=== PATIENT | female | born 1970 | race Caucasian/White ===

== ENCOUNTER 2016-04-08 17:04 | Emergency (ER) | payer OTHER ==
[~2016-04-08] VITALS: Ht 162.6 cm; Wt 88.0 kg
[~2016-04-08 17:04] MED LIST: ADVA115A INH; ALBUAER3 INH; ATOR20TA15 PO; CYCL1TAB29 PO; GABA800T PO; IBUP400T20 PO; IPRASOL INH; LEVO25TA4 PO; OMEP20TA PO; ZOLO50TA PO
[2016-04-08 17:23] VITALS: BP 126/84; PULSE 98; RESP 17; TEMP 99.5; O2SAT 98
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
[2016-04-08] MEDS ORDERED: NAPROXEN 500 MG TAB PO ONE (19:00)
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
[2016-04-08] MEDS ORDERED: NAPR500 PO (19:02)
== END 2016-04-08 19:17 | disposition home or self-care (01) ==
LOC: PHED 17:04 → PHEFT 19:17
DX: M79.672 Pain in left foot (principal); V09.09XA Pedestrian injured in nontraffic accident involving other motor vehicles, initial encounter; Y93.01 Activity, walking, marching and hiking; Y99.9 Unspecified external cause status
CPT/HCPCS: 73630; 99283; E0113

== ENCOUNTER 2016-10-02 22:50 | Inpatient (IN) | payer OTHER ==
[~2016-10-02] VITALS: Ht 165.1 cm; Wt 91.0 kg
[2016-10-02 22:50] VITALS: O2SAT 99
[~2016-10-02 22:50] MED LIST changes: -IBUP400T20 PO; +NAPR500 PO
[2016-10-02 22:55] VITALS: BP 142/81; PULSE 109; RESP 26; TEMP 98.5; O2SAT 100
[2016-10-02 22:59] VITALS: RESP 24; O2SAT 100
[2016-10-02 23:00] VITALS: RESP 24
[2016-10-02] MEDS ORDERED: SODIUM CHLORID 0.9% 500 ML INJ 500 ML IV ONE (23:00)
[2016-10-02] MEDS ORDERED: SODIUM CHLORIDE 0.9% FLUSH 10 ML FLUSH IVF PRN (23:00)
[2016-10-02] MEDS ORDERED: ONDANSETRON HCL 4 MG/2 ML VIAL IV PUSH ONE (23:00)
--- NOTE | 2016-10-02 23:14 | PD ---
HPI Chief Complaint: Respiratory Distress Time Seen by Provider: 22:53 Travel History International Travel<30 days: No Contact w/Intl Traveler<30days: No Traveled to known affect area: No History of Present Illness HPI The patient is a 45-year-old female who presents emergency department shortness of breath. The patient has a one-day history of increasing shortness of breath that started earlier today. The patient has been using nebulizers at home without any alleviation of her symptoms. The patient does have a history of asthma with previous intubations 4. The patient's primary physician is Dr. Nielson. Upon arrival the patient was short of breath, is only able to speak in one to 2 word sentences. She does note shortness of breath with wheezing, denies any chest pain, fever, or chills. The patient does note one episode of nausea with vomiting, denies any abdominal pain. The patient denies any known history congestive heart failure, pulmonary embolism, or DVT. Symptoms are moderate to severe, no alleviation with nebulizers prior to arrival, and very similar to her previous asthma exacerbations. The patient's primary physician is Dr. Oseas Nielson. 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) Diminished Hearing: No Endocrine: Yes Gastrointestinal Disorders: Yes GERD: Yes (Acid reflux) Genitourinary: No Hiatal Hernia: No Hypertension: No Immune Disorder: No Implanted Vascular Access Dvce: No Musculoskeletal: No Neurologic: No Psychiatric: No Reproductive: No Respiratory: Yes (ASTHMA) Immunizations Current: Yes Myocardial Infarction: No Radiation Therapy: No Renal Failure: No Seizures: No Sleep Apnea: No Thyroid Disease: Yes Ulcer: No Tetanus Vaccination: > 5 Years Influenza Vaccination: No PNEUMOCCOCAL Vaccine (Year): 3 ?: Unknown Menopausal: No : 3 Para: 3 Miscarriage: 0 : 0 Past Surgical History AICD: No Arteriovenous Shunt: No Insulin Pump: No Joint Replacement: No Neurologic Surgery: No Pacemaker: No Other Surgery: No Social History Alcohol Use: Yes (OCC, ) Tobacco Use: No (FORMER) Substance Use: No Allergies-Medications (Allergen,Severity, Reaction): Coded Allergies: *MDRO Multi-Drug Resistant Organism (Verified Adverse Reaction, Unknown, ) MRSA (sputum) - 02/2006, 10/2010, 11/2010 MRSA PCR screen negative - 05/20/15 & 07/31/15. Cleared per Infection Control Reported Meds & Prescriptions Reported Meds & Active Scripts Active Reported Duoneb (Ipratropium-Albuterol Neb) Unknown Strength Neb Unknown Dose INH DAILY PRN Advair Hfa 12 GM Inh (Fluticasone-Salmeterol 12 GM Inh) 115-21 Mcg/Act Aer 1 Puff INH DAILY@0600 Proair Hfa 8.5 GM Inh (Albuterol Sulfate) 90 Mcg/Act Aer 1 Puff INH Q6HR PRN 108 mcg/actuation Omeprazole 20 Mg Tab 20 Mg PO DAILY Levothyroxine (Levothyroxine Sodium) 25 Mcg Tab 25 Mcg PO DAILY Atorvastatin (Atorvastatin Calcium) 20 Mg Tab 20 Mg PO HS Gabapentin 800 Mg Tab 800 Mg PO TID Zoloft (Sertraline HCl) Unknown Strength Tab 50 PO DAILY Flexeril (Cyclobenzaprine HCl) 10 Mg Tab 10 Mg PO HS Review of Systems Except as stated in HPI: all other systems reviewed are Neg General / Constitutional: No: Fever HENT: No: Sore Throat Cardiovascular: Positive: Diaphoresis, No: Chest Pain or Discomfort Respiratory: Positive: Cough, Shortness of Breath, Wheezing Gastrointestinal: Positive: Nausea, Vomiting, No: Abdominal Pain Musculoskeletal: No: Edema Neurologic: No: Weakness Physical Exam Narrative GENERAL: Awake, alert, 45-year-old female appears her stated age and is in moderate respiratory distress. SKIN: Slightly clammy and diaphoretic. HEAD: Atraumatic. Normocephalic. EYES: Pupils equal and round. No scleral icterus. No injection or drainage. ENT: No nasal bleeding or discharge. Mucous membranes pink and moist. NECK: Trachea midline. No JVD. CARDIOVASCULAR: Regular, tachycardic with a heart rate over 5. RESPIRATORY: Tachypnea with a respiratory rate of 22, supraclavicular retractions noted, diminished breath sounds throughout with tight late expiratory wheezing. Abdomen: Soft, no rebound tenderness, guarding, rigidity. MUSCULOSKELETAL: No obvious deformities. No clubbing. No cyanosis. No edema. Calves are soft bilaterally. NEUROLOGICAL: Awake and alert. No obvious cranial nerve deficits. Motor grossly within normal limits. Normal speech. PSYCHIATRIC: Appropriate mood and affect; insight and judgment normal. Data Data Last Documented VS Vital Signs Date Time Temp Pulse Resp B/P Pulse Ox O2 Delivery O2 Flow Rate FiO2 10/02/16 23:00 100 BiPAP 10/02/16 23:00 24 10/02/16 22:55 98.5 109 142/81 Orders Complete Blood Count With Diff (10/02/16 22:53) Comprehensive Metabolic Panel (10/02/16 22:53) B-Type Natriuretic Peptide (10/02/16 22:53) Magnesium (Mg) (10/02/16 22:53) Ckmb (Isoenzyme) Profile (10/02/16 22:53) Troponin I (10/02/16 22:53) Iv Access Insert/Monitor (10/02/16 22:53) Electrocardiogram (10/02/16 22:53) Ecg Monitoring (10/02/16 22:53) Oximetry (10/02/16 22:53) Oxygen Administration (10/02/16 22:53) Chest, Single Ap (10/02/16 22:53) Sodium Chloride 0.9% Flush (Ns Flush) (10/02/16 23:00) Albuterol-Ipratropium Neb (Duoneb Neb) (10/02/16 23:00) Resp Bipap / Cpap Non Invas Vt (10/02/16 22:53) Resp Blood Gas Venous (10/02/16 ) Ondansetron Inj (Zofran Inj) (10/02/16 23:00) Sodium Chlorid 0.9% 500 Ml Inj (Ns 500 M (10/02/16 23:00) CKMB (10/02/16 23:00) CKMB% (10/02/16 23:00) Admit Order (Ed Use Only) (10/02/16 23:42) Atorvastatin (Lipitor) (10/03/16 21:00) Cyclobenzaprine (Flexeril) (10/03/16 21:00) Gabapentin (Neurontin) (10/03/16 09:00) Levothyroxine (Synthroid) (10/03/16 06:00) (Nf) Fluticasone-Salmeterol 12 Gm Inh (A (7/15/17 06:00) Pantoprazole (Protonix) (10/03/16 09:00) Albuterol Hfa Inh (Ventolin Hfa Inh) (10/03/16 00:15) Labs Laboratory Tests Test 10/02/16 10/02/16 22:55 23:00 Blood Gas Puncture Site Blood Gas Patient Temperature 98.6 Venous Blood pH 7.41 Venous Blood Partial Pressure 36 mmHg CO2 Venous Blood Partial Pressure 46 mmHg O2 Venous Blood HCO3 22 mmol/L Venous Blood Oxygen Saturation 78 % Venous Blood Oxygen Content 14.2 Vol % Venous Blood Base Excess -2.0 mmol/L Oxygen Delivery Device BIPAP Blood Gas Ventilator Setting IPAP=12 EPAP=5 Blood Gas Inspired Oxygen 50 % White Blood Count 12.8 TH/MM3 Red Blood Count 4.55 MIL/MM3 Hemoglobin 12.7 GM/DL Hematocrit 38.9 % Mean Corpuscular Volume 85.7 FL Mean Corpuscular Hemoglobin 27.9 PG Mean Corpuscular Hemoglobin 32.6 % Concent Red Cell Distribution Width 14.7 % Platelet Count 346 TH/MM3 Mean Platelet Volume 7.7 FL Neutrophils (%) (Auto) 57.1 % Lymphocytes (%) (Auto) 30.6 % Monocytes (%) (Auto) 6.8 % Eosinophils (%) (Auto) 4.8 % Basophils (%) (Auto) 0.7 % Neutrophils # (Auto) 7.3 TH/MM3 Lymphocytes # (Auto) 3.9 TH/MM3 Monocytes # (Auto) 0.9 TH/MM3 Eosinophils # (Auto) 0.6 TH/MM3 Basophils # (Auto) 0.1 TH/MM3 CBC Comment DIFF FINAL Differential Comment Sodium Level 139 MEQ/L Potassium Level 3.5 MEQ/L Chloride Level 105 MEQ/L Carbon Dioxide Level 22.3 MEQ/L Anion Gap 12 MEQ/L Blood Urea Nitrogen 8 MG/DL Creatinine 0.93 MG/DL Estimat Glomerular Filtration 65 ML/MIN Rate Random Glucose 107 MG/DL Calcium Level 9.3 MG/DL Magnesium Level 2.1 MG/DL Total Bilirubin 0.1 MG/DL Aspartate Amino Transf 17 U/L (AST/SGOT) Alanine Aminotransferase 25 U/L (ALT/SGPT) Alkaline Phosphatase 97 U/L Total Creatine Kinase 109 U/L Creatine Kinase MB 0.7 NG/ML Troponin I LESS THAN 0.02 NG/ML B-Type Natriuretic Peptide 14 PG/ML Total Protein 8.2 GM/DL Albumin 3.6 GM/DL MDM Medical Decision Making Medical Screen Exam Complete: Yes Emergency Medical Condition: Yes Medical Record Reviewed: Yes Interpretation(s) EKG reveals normal sinus rhythm with a rate in 97. Nonspecific T-wave changes. Last Impressions Chest X-Ray 10/02/16 [id number] Signed Impressions: Service Date/Time: Sunday, October 02, 2016 23:12 - CONCLUSION: No acute disease. Kwasi Underwood MD Laboratory Tests Test 10/02/16 23:00 White Blood Count 12.8 TH/MM3 Red Blood Count 4.55 MIL/MM3 Hemoglobin 12.7 GM/DL Hematocrit 38.9 % Mean Corpuscular Volume 85.7 FL Mean Corpuscular Hemoglobin 27.9 PG Mean Corpuscular Hemoglobin 32.6 % Concent Red Cell Distribution Width 14.7 % Platelet Count 346 TH/MM3 Mean Platelet Volume 7.7 FL Neutrophils (%) (Auto) 57.1 % Lymphocytes (%) (Auto) 30.6 % Monocytes (%) (Auto) 6.8 % Eosinophils (%) (Auto) 4.8 % Basophils (%) (Auto) 0.7 % Neutrophils # (Auto) 7.3 TH/MM3 Lymphocytes # (Auto) 3.9 TH/MM3 Monocytes # (Auto) 0.9 TH/MM3 Eosinophils # (Auto) 0.6 TH/MM3 Basophils # (Auto) 0.1 TH/MM3 CBC Comment DIFF FINAL Differential Comment Sodium Level 139 MEQ/L Potassium Level 3.5 MEQ/L Chloride Level 105 MEQ/L Carbon Dioxide Level 22.3 MEQ/L Anion Gap 12 MEQ/L Blood Urea Nitrogen 8 MG/DL Creatinine 0.93 MG/DL Estimat Glomerular Filtration 65 ML/MIN Rate Random Glucose 107 MG/DL Calcium Level 9.3 MG/DL Magnesium Level 2.1 MG/DL Aspartate Amino Transf 17 U/L (AST/SGOT) Alanine Aminotransferase 25 U/L (ALT/SGPT) Albumin 3.6 GM/DL Differential Diagnosis Differential diagnosis includes asthma exacerbation, COPD exacerbation, bronchitis, pneumonia, pneumothorax, pulmonary edema, congestive heart failure, acute urinary syndrome, pulmonary embolism, pneumonitis. Narrative Course IV was established, labs are drawn and sent, and the patient was placed on cardiac telemetry monitoring and continuous pulse oximetry monitoring. The patient was placed on BiPAP at 12/5 and 50% by respiratory. VBG was obtained. The patient was administered duo nebs 3. EKG was ordered and interpreted. Chest x-ray was obtained. Chest x-ray was unremarkable. White count is mildly elevated at 12.8, troponin is negative, chest x-ray reveals no evidence of pneumonia. The patient's symptoms significantly improved on BiPAP, patient is high risk if she is been recently intubated 4 times. The patient is followed by her primary physician, Dr. 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 Brown. The patient will need admission on [facility]PAP. [facility]. The patient was reassessed at 12:05 AM. The patient's retractions had resolved , her respiratory rate was 16, she had significantly improved airway movement with diminished wheezing. After discussion with the patient was agreed we would perform a trial off of BiPAP to see how she responds. Critical Care Narrative Aggregate critical care time was 35 minutes. Time to perform other separately billable procedures was not included in the critical care time. My time did not include minutes spent treating any other patients simultaneously or on activities that did not directly contribute to the patient's treatment. The services I provided to this patient were to treat and/or prevent clinically significant deterioration that could result in: Anoxia, hypoxia, aspiration, arrhythmia, . I provided critical care services requiring my management, as noted below: Chart data review, documentation time, medication orders and management, vital sign assessments/reviewing monitor data, ordering and reviewing lab tests, ordering and interpreting/reviewing x-rays and diagnostic studies, care of the patient and discussion of the patient with the admitting physicians. Physician Communication Physician Communication [facility] I discussed the patient with Dr. Lott who agrees with admission. Diagnosis Primary Impression: Status asthmaticus Qualified Code: J45.902 - Asthma with status asthmaticus, unspecified asthma severity Admitting Information Admitting Physician Requests: Admit Condition: Stable Albert Shah MD Oct 02, 2016 23:14
[2016-10-02 23:16] LABS: AUTOMATED NEUTROPHIL # 7.3 TH/MM3 (1.8-7.7); BASOPHIL # 0.1 TH/MM3 (0-0.2); BASOPHIL % 0.7 % (0.0-2.0); EOSINOPHIL # 0.6 TH/MM3 (0-0.4); EOSINOPHIL % 4.8 % (0.0-4.0); HEMATOCRIT 38.9 % (35.0-46.0); HEMO FLAGS DIFF FINAL; LYMPH % 30.6 % (9.0-44.0); LYMPHOCYTE # 3.9 TH/MM3 (1.0-4.8); MEAN CELL VOLUME 85.7 FL (80.0-100.0); MEAN CORPUSCULAR HEMOGLOBIN 27.9 PG (27.0-34.0); MEAN CORPUSCULAR HGB CONC 32.6 % (32.0-36.0); MONO % 6.8 % (0.0-8.0); NEUT % 57.1 % (16.0-70.0); PLATELET COUNT 346 TH/MM3 (150-450); RED BLOOD COUNT 4.55 MIL/MM3 (4.00-5.30); RED CELL DISTRIBUTION WIDTH 14.7 % (11.6-17.2); WHITE BLOOD COUNT 12.8 TH/MM3 (4.0-11.0)
--- NOTE | 2016-10-02 23:22 | RADRPT ---
EXAM DATE/TIME: 10/02/2016 23:12 [facility] COMPARISON: CHEST SINGLE AP, November 30, 2015, 18:32. INDICATIONS : Short of breath. MEDICAL HISTORY : None. SURGICAL HISTORY : None. ENCOUNTER: Initial ACUITY: 1 day PAIN SCORE: 7/10 LOCATION: Bilateral chest FINDINGS: A single view of the chest demonstrates the lungs to be symmetrically aerated without evidence of mas s, infiltrate or effusion. The cardiomediastinal contours are unremarkable. Osseous structures are intact. CONCLUSION: No acute disease. Kwasi Underwood MD on October 02, 2016 at 23:20 Board Certified Radiologist. This report was verified electronically.
[2016-10-02 23:32] LABS: ALT (GPT) 25 U/L (10-53); ANION GAP 12 MEQ/L (5-15); AST (GOT) 17 U/L (15-37); BICARBONATE 22.3 MEQ/L (21.0-32.0); BLOOD UREA NITROGEN 8 MG/DL (7-18); CHLORIDE 105 MEQ/L (98-107); GLOMERULAR FILTRATION RATE 65 ML/MIN (>89); MAGNESIUM 2.1 MG/DL (1.5-2.5); POTASSIUM 3.5 MEQ/L (3.5-5.1); SODIUM (NA) 139 MEQ/L (136-145)
[2016-10-02 23:36] LABS: ALKALINE PHOSPHATASE 97 U/L (45-117); CREATINE KINASE 109 U/L (26-192); TOTAL BILIRUBIN ADULT 0.1 MG/DL (0.2-1.0)
[2016-10-02] MEDS: RESP: ALBUTEROL 2.5 MG/IPRATROPIUM 0.5 MG NEB (SCH) INH (23:41)
[2016-10-02] MEDS ORDERED: NALOXONE HCL 0.4 MG/ML AMP IV PRN (23:45)
[2016-10-02] MEDS ORDERED: LACTULOSE SYRUP 20 GM/30 ML CUP PO PRN (23:45)
[2016-10-02] MEDS ORDERED: MAGNESIUM HYDROXIDE SUSP 30 ML CUP PO PRN (23:45)
[2016-10-02] MEDS ORDERED: BISACODYL 10 MG SUPP RECTAL PRN (23:45)
[2016-10-02] MEDS ORDERED: TEMAZEPAM 15 MG CAP PO PRN (23:45)
[2016-10-02] MEDS ORDERED: SENNOSIDES 8.6 MG TAB PO PRN (23:45)
[2016-10-02] MEDS ORDERED: SODIUM CHLORIDE 0.9% FLUSH 10 ML FLUSH IV FLUSH PRN (23:45)
[2016-10-02] MEDS ORDERED: ONDANSETRON HCL 4 MG/2 ML VIAL IVP PRN (23:45)
[2016-10-02 23:49] LABS: CKMB 0.7 NG/ML (0.5-3.6)
[2016-10-03] VITALS (24 sets, daily range): BP systolic 106–138; BP diastolic 62–76; PULSE 70–108; RESP 14–18; TEMP 97.6–98.4; O2SAT 92–99
[2016-10-03] MEDS ORDERED: RESP: ALBUTEROL 2.5 MG/IPRATROPIUM 0.5 MG NEB (PRN) NEB
[2016-10-03] MEDS ORDERED: ALBUTEROL SULFATE 90 MCG/ACT HFA 18 GM INHALER INH PRN (00:15)
[2016-10-03 00:26] LABS: BLOOD GAS VENOUS HCO3 22 mmol/L (22-26); BLOOD GAS VENOUS O2 CONTENT 14.2 Vol % (9.0-17.0); BLOOD GAS VENOUS O2 HGB SAT 78 % (70-76); BLOOD GAS VENOUS PCO2 36 mmHg (44-48); BLOOD GAS VENOUS PO2 46 mmHg (35-40); BLOOD GAS VENOUS pH 7.41 (7.360-7.400); CRITICAL VALUE NO; FIO2 50 %; OXYGEN DEVICE BIPAP; STAT YES; TEMP CORR TO 98.6; VENT SETTINGS IPAP=12 EPAP=5
[2016-10-03] MEDS: HEPARIN SODIUM - SQ 10,000 UNITS/ML VIAL SQ SCH ×2 (01:35→11:24)
[2016-10-03] MEDS: AZITHROMYCIN INJ 500 MG in SODIUM CHLOR 0.9% 250 ML INJ 250 ML IV SCH (01:35)
[2016-10-03] MEDS: methylPREDNISolone SOD SUCC 40 MG/1 ML VIAL IV PUSH SCH ×5 (01:36→22:48)
[2016-10-03 05:30] LABS: AUTOMATED NEUTROPHIL # 8.6 TH/MM3 (1.8-7.7); BASOPHIL % 0.1 % (0.0-2.0); EOSINOPHIL % 0.1 % (0.0-4.0); HEMATOCRIT 36.9 % (35.0-46.0); HEMO FLAGS DIFF FINAL; LYMPH % 5.9 % (9.0-44.0); LYMPHOCYTE # 0.5 TH/MM3 (1.0-4.8); MEAN CELL VOLUME 86.3 FL (80.0-100.0); MEAN CORPUSCULAR HEMOGLOBIN 28.2 PG (27.0-34.0); MEAN CORPUSCULAR HGB CONC 32.7 % (32.0-36.0); MONO % 0.5 % (0.0-8.0); NEUT % 93.4 % (16.0-70.0); PLATELET COUNT 299 TH/MM3 (150-450); RED BLOOD COUNT 4.27 MIL/MM3 (4.00-5.30); RED CELL DISTRIBUTION WIDTH 14.9 % (11.6-17.2); WHITE BLOOD COUNT 9.2 TH/MM3 (4.0-11.0)
[2016-10-03 05:53] LABS: BICARBONATE 21.8 MEQ/L (21.0-32.0); POTASSIUM 3.9 MEQ/L (3.5-5.1)
[2016-10-03 05:57] LABS: INDIRECT BILIRUBIN 0.1 MG/DL (0.0-0.8); TOTAL BILIRUBIN ADULT 0.2 MG/DL (0.2-1.0)
[2016-10-03] MEDS ORDERED: SALMETEROL INH SCH (06:00)
[2016-10-03] MEDS ORDERED: FLUTICASONE INH SCH (06:00)
[2016-10-03] MEDS: LEVOTHYROXINE SODIUM 25 MCG TAB PO SCH (06:08)
[2016-10-03] MEDS: GABAPENTIN 400 MG CAP PO SCH ×3 (07:44→17:19)
[2016-10-03] MEDS: DOCUSATE SODIUM 50 MG/SENNA 8.6 MG TAB PO SCH ×2 (07:44→21:00)
[2016-10-03] MEDS: CHLORHEXIDINE GLUCONATE 0.12% 15 ML CUP SWISH-SPIT SCH ×3 (07:45→17:19)
[2016-10-03] MEDS: MUPIROCIN 2% OINT 1 APPLIC/GM SYR EACH NARE SCH ×2 (07:45→22:49)
[2016-10-03] MEDS: PANTOPRAZOLE SOD 20 MG DELAYED RELEASE TAB PO SCH (07:45)
[2016-10-03] MEDS: SODIUM CHLORIDE 0.9% FLUSH 10 ML FLUSH IV FLUSH SCH ×2 (07:46→22:49)
[2016-10-03] MEDS ORDERED: ACETAMINOPHEN 325 MG TAB PO PRN (11:00)
[2016-10-03] MEDS: RESP: ALBUTEROL 2.5 MG/IPRATROPIUM 0.5 MG NEB (PRN) NEB ×2 (11:30→19:26)
--- NOTE | 2016-10-03 13:42 | EKG ---
Date Performed: 10/02/2016 Time Performed: 23:06:24 PTAGE: 45 years EKG: Sinus rhythm POSSIBLE LEFT ATRIAL ENLARGEMENT LOW QRS VOLTAGE IN PRECORDIAL LEADS NONSPECIFIC T-WAVE ABNORMALITY Compared to previous tracing, sinus rate is slower BORDERLINE ECG PREVIOUS TRACING : 11/30/2015 18.06 DOCTOR: Wisam Garrison Interpretating Date/Time 10/03/2016 13:41:55
--- NOTE | 2016-10-03 15:23 | HHI.HP ---
HPI Service [facility] Primary Care Physician Oseas Nielson M.D. Admission Diagnosis status asthmaticus Diagnoses: Travel History International Travel<30 Days: No Contact w/Intl Traveler <30 Da: No Traveled to Known Affected Are: No History of Present Illness The patient is a 45-year-old female patient of Dr. Jarvis Nielson. She presented to the emergency department at [facility] with just before midnight last night with shortness of breath. On the shortness of breath, wheezing, chest tightness, cough without fever. She was seen by the undersigned in room 236 earlier this morning. She is alert and oriented. She is already feeling better after treatment that was started at the emergency department. She has a severe asthma attack and initially was on BiPAP. Progressed to nasal cannula this morning. The patient does have a history of asthma with previous intubations 4. Upon arrival the patient was short of breath, is only able to speak in one to 2 word sentences. She denies any chest pain, fever, or chills. The patient had one episode of nausea with vomiting, denies any abdominal pain. Review of Systems Other As detailed above, 10 systems reviewed and otherwise negative Past Family Social History Past Medical History Asthma COPD peripheral neuropathy hyperlipidemia Hypothyroid Obesity Reflux disease Depression Anxiety Prior history of smoking Nasal MRSA diagnosed in the year 1999 but subsequently resolved Reported Medications Reported Meds & Active Scripts Active Reported Duoneb (Ipratropium-Albuterol Neb) Unknown Strength Neb Unknown Dose INH DAILY PRN Advair Hfa 12 GM Inh (Fluticasone-Salmeterol 12 GM Inh) 115-21 Mcg/Act Aer 1 Puff INH DAILY@0600 Proair Hfa 8.5 GM Inh (Albuterol Sulfate) 90 Mcg/Act Aer 1 Puff INH Q6HR PRN 108 mcg/actuation Omeprazole 20 Mg Tab 20 Mg PO DAILY Levothyroxine (Levothyroxine Sodium) 25 Mcg Tab 25 Mcg PO DAILY Atorvastatin (Atorvastatin Calcium) 20 Mg Tab 20 Mg PO HS Gabapentin 800 Mg Tab 800 Mg PO TID Zoloft (Sertraline HCl) Unknown Strength Tab 50 PO DAILY Flexeril (Cyclobenzaprine HCl) 10 Mg Tab 10 Mg PO HS Allergies: Coded Allergies: *MDRO Multi-Drug Resistant Organism (Verified Adverse Reaction, Unknown, ) MRSA (sputum) - 02/2006, 10/2010, 11/2010 MRSA PCR screen negative - 05/20/15 & 07/31/15. Cleared per Infection Control Family History Reviewed but noncontributory Social History Prior history of smoking, hasn't smoked for years, no excessive alcohol, no illicit drug use Physical Exam Vital Signs Vital Signs Date Time Temp Pulse Resp B/P Pulse Ox O2 Delivery O2 Flow Rate FiO2 10/03/16 14:00 99 10/03/16 13:03 96 10/03/16 12:00 108 10/03/16 11:03 107 10/03/16 11:00 98.0 107 18 138/72 96 10/03/16 10:00 96 10/03/16 09:00 100 10/03/16 08:00 103 10/03/16 07:11 70 10/03/16 07:00 97.6 102 18 137/75 97 10/03/16 05:59 98.3 101 14 106/76 95 10/03/16 01:14 98.4 99 18 115/64 98 10/03/16 01:00 100 10/03/16 00:15 99 Nasal Cannula 2.00 10/02/16 23:00 100 BiPAP 10/02/16 23:00 24 10/02/16 22:59 24 100 BiPAP 10/02/16 22:55 98.5 109 26 142/81 100 10/02/16 22:50 99 50 Physical Exam GENERAL: This is a pleasant, obese , well-developed patient, in no apparent distress. SKIN: No rashes, ecchymoses or lesions. Cool and dry. HEAD: Atraumatic. Normocephalic. No temporal or scalp tenderness. EYES: Pupils equal round and reactive. Extraocular motions intact. No scleral icterus. No injection or drainage. ENT: Nose without bleeding, purulent drainage or septal hematoma. Throat without erythema, tonsillar hypertrophy or exudate. Uvula midline. Airway patent. NECK: Trachea midline. No JVD or lymphadenopathy. Supple, nontender, no meningeal signs. CARDIOVASCULAR: Regular rate and rhythm without murmurs, gallops, or rubs. RESPIRATORY: Bilateral wheezing GASTROINTESTINAL: Abdomen soft, non-tender, nondistended. No hepato-splenomegaly , or palpable masses. No guarding. MUSCULOSKELETAL: Extremities without clubbing, cyanosis, or edema. No joint tenderness, effusion, or edema noted. No calf tenderness. Negative Homans sign bilaterally. NEUROLOGICAL: Awake and alert. Cranial nerves II through XII intact. Normal speech. Laboratory Laboratory Tests Test 10/02/16 10/02/16 10/03/16 22:55 23:00 04:58 Blood Gas Puncture Site Blood Gas Patient Temperature 98.6 Venous Blood pH 7.41 Venous Blood Partial Pressure 36 CO2 Venous Blood Partial Pressure 46 O2 Venous Blood HCO3 22 Venous Blood Oxygen Saturation 78 Venous Blood Oxygen Content 14.2 Venous Blood Base Excess -2.0 Oxygen Delivery Device BIPAP Blood Gas Ventilator Setting IPAP=12 EPAP=5 Blood Gas Inspired Oxygen 50 White Blood Count 12.8 9.2 Red Blood Count 4.55 4.27 Hemoglobin 12.7 12.0 Hematocrit 38.9 36.9 Mean Corpuscular Volume 85.7 86.3 Mean Corpuscular Hemoglobin 27.9 28.2 Mean Corpuscular Hemoglobin 32.6 32.7 Concent Red Cell Distribution Width 14.7 14.9 Platelet Count 346 299 Mean Platelet Volume 7.7 7.8 Neutrophils (%) (Auto) 57.1 93.4 Lymphocytes (%) (Auto) 30.6 5.9 Monocytes (%) (Auto) 6.8 0.5 Eosinophils (%) (Auto) 4.8 0.1 Basophils (%) (Auto) 0.7 0.1 Neutrophils # (Auto) 7.3 8.6 Lymphocytes # (Auto) 3.9 0.5 Monocytes # (Auto) 0.9 0.0 Eosinophils # (Auto) 0.6 0.0 Basophils # (Auto) 0.1 0.0 CBC Comment DIFF FINAL DIFF FINAL Differential Comment Sodium Level 139 138 Potassium Level 3.5 3.9 Chloride Level 105 108 Carbon Dioxide Level 22.3 21.8 Anion Gap 12 8 Blood Urea Nitrogen 8 10 Creatinine 0.93 1.03 Estimat Glomerular Filtration 65 58 Rate Random Glucose 107 158 Calcium Level 9.3 8.8 Magnesium Level 2.1 Total Bilirubin 0.1 0.2 Aspartate Amino Transf 17 13 (AST/SGOT) Alanine Aminotransferase 25 22 (ALT/SGPT) Alkaline Phosphatase 97 92 Total Creatine Kinase 109 Creatine Kinase MB 0.7 Troponin I LESS THAN 0.02 B-Type Natriuretic Peptide 14 Total Protein 8.2 7.5 Albumin 3.6 3.3 Direct Bilirubin 0.1 Indirect Bilirubin 0.1 Result Diagram: 10/03/16 0458 10/03/16 0458 Imaging Last 24 hours Impressions Chest X-Ray 10/02/16 4539 Signed Impressions: Service Date/Time: Sunday, October 02, 2016 23:12 - CONCLUSION: No acute disease. Kwasi Underwood MD Assessment and Plan Assessment and Plan Assessment Admitted with status asthmaticus Respiratory distress secondary to the above Bronchospasm Obesity Management Admitted to telemetry Solu-Medrol 80 mg IV every 6 hours DuoNeb 4 times a day plus as needed for 2 hours Consult pulmonary Medications Needs to lose weight She was given empiric antibiotics however this time there is no evidence of infection No obvious trigger for her attack identifiable at this time Discussed with patient Discussed with nurse Discussed with emergency provider 40 minutes Tejal Lott MD Oct 03, 2016 15:23
[2016-10-03] MEDS: ATORVASTATIN 20 MG TAB PO SCH (22:49)
[2016-10-03] MEDS: CYCLOBENZAPRINE HCL 10 MG TAB PO SCH (22:49)
[2016-10-04] VITALS (25 sets, daily range): BP systolic 115–146; BP diastolic 57–81; PULSE 60–105; RESP 16–18; TEMP 97.7–98.2; O2SAT 93–96
[2016-10-04 01:07] LABS: MAGNESIUM 1.9 MG/DL (1.5-2.5); POTASSIUM 3.9 MEQ/L (3.5-5.1)
[2016-10-04] MEDS: HEPARIN SODIUM - SQ 10,000 UNITS/ML VIAL SQ SCH ×2 (02:13→12:11)
[2016-10-04] MEDS: AZITHROMYCIN INJ 500 MG in SODIUM CHLOR 0.9% 250 ML INJ 250 ML IV SCH (02:14)
[2016-10-04] MEDS: LEVOTHYROXINE SODIUM 25 MCG TAB PO SCH (06:10)
[2016-10-04] MEDS: methylPREDNISolone SOD SUCC 40 MG/1 ML VIAL IV PUSH SCH ×2 (06:10→12:12)
[2016-10-04] MEDS: PANTOPRAZOLE SOD 20 MG DELAYED RELEASE TAB PO SCH (08:54)
[2016-10-04] MEDS: MUPIROCIN 2% OINT 1 APPLIC/GM SYR EACH NARE SCH ×2 (08:55→21:00)
[2016-10-04] MEDS: GABAPENTIN 400 MG CAP PO SCH ×3 (08:55→16:56)
[2016-10-04] MEDS: CHLORHEXIDINE GLUCONATE 0.12% 15 ML CUP SWISH-SPIT SCH ×3 (08:55→16:56)
[2016-10-04] MEDS: SODIUM CHLORIDE 0.9% FLUSH 10 ML FLUSH IV FLUSH SCH ×2 (08:55→21:31)
[2016-10-04] MEDS: DOCUSATE SODIUM 50 MG/SENNA 8.6 MG TAB PO SCH ×2 (08:55→21:30)
--- NOTE | 2016-10-04 12:39 | EKG ---
Date Performed: 10/03/2016 Time Performed: 23:55:06 PTAGE: 45 years EKG: Sinus rhythm Extensive T wave changes are nonspecific Low QRS voltages in precordial leads Compared to prior trac ing no significant change Borderline ECG PREVIOUS TRACING : 10/02/2016 23.06 DOCTOR: Wisam Garrison Interpretating Date/Time 10/04/2016 12:34:24
--- NOTE | 2016-10-04 15:49 | HHI.PR ---
Subjective Remarks alert no sob at rest Objective Vital Signs Date Time Temp Pulse Resp B/P Pulse Ox O2 Delivery O2 Flow Rate FiO2 10/04/16 14:01 66 10/04/16 13:00 86 10/04/16 12:06 85 10/04/16 11:21 97.7 105 18 138/68 95 10/04/16 11:21 98 10/04/16 10:09 71 10/04/16 09:11 82 10/04/16 08:15 97.7 82 18 115/68 95 10/04/16 08:15 95 Room Air 10/04/16 08:15 80 10/04/16 06:20 83 10/04/16 05:42 78 10/04/16 04:20 76 10/04/16 03:24 97.9 81 18 121/57 93 10/04/16 03:24 93 10/04/16 02:15 78 10/04/16 01:00 81 10/04/16 00:00 90 10/03/16 23:30 98.0 76 16 106/66 95 10/03/16 23:00 89 10/03/16 22:00 76 10/03/16 21:00 102 10/03/16 20:36 97.8 96 18 120/67 92 10/03/16 20:36 77 10/03/16 18:06 96 10/03/16 17:01 81 10/03/16 16:32 98.3 98 18 133/62 98 10/03/16 16:03 95 I/O 10/03/16 10/03/16 10/03/16 10/04/16 10/04/16 10/04/16 07:00 15:00 23:00 07:00 15:00 23:00 Intake Total 395 ml 780 ml 727 ml Output Total 900 ml Balance 395 ml 780 ml -173 ml Intake Oral 120 ml 780 ml 480 ml IV Total 275 ml 0 ml 247 ml Output Urine Total 900 ml # Voids 2 # Bowel Movements 0 Result Diagram: 10/03/16 0458 10/03/16 4620 Medications and IVs GENERAL: SKIN: Warm and dry. HEAD: Atraumatic. Normocephalic. EYES: Pupils equal and round. No scleral icterus. No injection or drainage. ENT: No nasal bleeding or discharge. Mucous membranes pink and moist. NECK: Trachea midline. No JVD. CARDIOVASCULAR: Regular rate and rhythm. RESPIRATORY: No accessory muscle use. Clear to auscultation. Breath sounds equal bilaterally. GASTROINTESTINAL: Abdomen soft, non-tender, nondistended. Hepatic and splenic margins not palpable. MUSCULOSKELETAL: Extremities without clubbing, cyanosis, or edema. No obvious deformities. NEUROLOGICAL: Awake and alert. No obvious cranial nerve deficits. Motor grossly within normal limits. Five out of 5 muscle strength in the arms and legs. Normal speech. PSYCHIATRIC: Appropriate mood and affect; insight and judgment normal. Assessment and Plan Assessment and Plan ass asthma ex. improved PLAN BRONCHODILATOR THERAPY CHANGE TO ORAL STEROIDS INCREASE ACTIVITY Jen Li MD Oct 04, 2016 15:49
--- NOTE | 2016-10-04 16:25 | HHI.PR ---
Subjective Interval History Alert, oriented, feels better, no longer on supplemental oxygen, still gets some cough but without sputum, no fever, no chest pain Had 2 short episodes of wide-complex tachycardia, question V. tach Review of Systems Constitutional Constitutional Remarks As detailed above, 10 systems reviewed and otherwise negative Vitals/Results Intake & Output 10/03/16 10/03/16 10/04/16 15:00 23:00 07:00 Intake Total 780 ml 727 ml Output Total 900 ml Balance 780 ml -173 ml Intake Oral 780 ml 480 ml IV Total 0 ml 247 ml Output Urine Total 900 ml Vital Signs Vital Signs Date Time Temp Pulse Resp B/P Pulse Ox O2 Delivery O2 Flow Rate FiO2 10/04/16 16:09 98 10/04/16 15:00 75 10/04/16 15:00 98.2 88 18 146/81 96 10/04/16 14:01 66 10/04/16 13:00 86 10/04/16 12:06 85 10/04/16 11:21 97.7 105 18 138/68 95 10/04/16 11:21 98 10/04/16 10:09 71 10/04/16 09:11 82 10/04/16 08:15 97.7 82 18 115/68 95 10/04/16 08:15 95 Room Air 10/04/16 08:15 80 10/04/16 06:20 83 10/04/16 05:42 78 10/04/16 04:20 76 10/04/16 03:24 97.9 81 18 121/57 93 10/04/16 03:24 93 10/04/16 02:15 78 10/04/16 01:00 81 10/04/16 00:00 90 10/03/16 23:30 98.0 76 16 106/66 95 10/03/16 23:00 89 10/03/16 22:00 76 10/03/16 21:00 102 10/03/16 20:36 97.8 96 18 120/67 92 10/03/16 20:36 77 10/03/16 18:06 96 10/03/16 17:01 81 10/03/16 16:32 98.3 98 18 133/62 98 CBC/BMP: 10/03/16 0458 10/03/16 2330 Lab Results Laboratory Tests Test 10/03/16 23:30 Potassium Level 3.9 MEQ/L Magnesium Level 1.9 MG/DL Troponin I LESS THAN 0.02 NG/ML Thyroid Stimulating Hormone 1.580 uIU/ML 3rd Gen Physical Exam General General Appearance: Comfortable, Obese Eyes Eye Exam: Pupils Reactive Ears & Nose Ears & Nose Exam: Nasal Mucosa [place] Throat Throat Exam: Oral Mucosa [place] & Moist Neck Neck Exam: Trachea Midline Pulmonary Resp Exam: Breath Sounds Equal, Crackles Cardiology CV Exam: Normal Sinus Rhythm, Good Perfusion Gastrointestinal/Abdomen GI Exam: Bowel Sounds Present Musculoskeletal MS Exam: Normal Tone Integumentary Skin Exam: Warm, Dry Extremeties Extremities Exam: No Edema Neurologic Neuro Exam: Alert, Awake, Oriented, Speech Clear, Moving All Extremities Psychiatric Psych Exam: Appropriate Responses VTE Prophylaxis VTE Prophylaxis Meds: Heparin Assessment/Plan Assessment/Plan Assessment Admitted with status asthmaticus/respiratory failure, initially was on BiPAP Respiratory distress secondary to the above Much improved now Had 2 short episodes of wide-complex tachycardia, question V. tach Bronchospasm Obesity Management telemetry Solu-Medrol switched to prednisone Discontinue scheduled DuoNeb, keep only as needed every 4 hours pulmonary following Follow potassium and sodium levels Needs to lose weight Follow echocardiogram findings Discussed with patient Discussed with nurse Discussed Condition with: Patient Tejal Lott MD Oct 04, 2016 16:25
[2016-10-04] MEDS: predniSONE 10 MG TAB PO SCH (16:41)
--- NOTE | 2016-10-04 19:21 | ECHRPT ---
Indication: SHORTNESS OF BREATH CONCLUSIONS Normal left ventricular size. Wall thickness is normal. The left ventricular systolic function is grossly normal on limited imaging. No regional wall motion abnormalities are present. Left ventricular diastolic function parameters are normal. Structurally normal tricuspid valve. There is trace tricuspid and mitral valve regurgitation. Normal estimated pulmonary pressures. BP: / HR: Rhythm: Sinus MEASUREMENTS (Male / Female) Normal Values Technical Quality:Technically difficult study 2D ECHO LV Diastolic Diameter PLAX 3.9 cm 4.2 - 5.9 / 3.9 - 5.3 cm LV Systolic Diameter PLAX 2.4 cm IVS Diastolic Thickness 0.7 cm 0.6 - 1.0 / 0.6 - 0.9 cm LVPW Diastolic Thickness 0.7 cm 0.6 - 1.0 / 0.6 - 0.9 cm LV Relative Wall Thickness 0.4 LVOT Diameter 1.9 cm Aortic Root Diameter 2.5 cm LA Systolic Diameter LX 3.1 cm 3.0 - 4.0 / 2.7 - 3.8 cm M-MODE AV Cusp Separation MM 1.6 cm DOPPLER AV Peak Velocity 128.0 cm/s AV Peak Gradient 6.6 mmHg AV Mean Gradient 4.0 mmHg AV Velocity Time Integral 27.1 cm LVOT Peak Velocity 111.0 cm/s LVOT Peak Gradient 4.9 mmHg LVOT Velocity Time Integral 22.8 cm AV Area Cont Eq vti 2.4 cm AV Area Cont Eq pk 2.5 cm Mitral E Point Velocity 83.9 cm/s Mitral A Point Velocity 90.3 cm/s Mitral E to A Ratio 0.9 LV E' Lateral Velocity 12.4 cm/s Mitral E to LV E' Lateral Ratio 6.8 LV E' Septal Velocity 8.8 cm/s Mitral E to LV E' Septal Ratio 9.6 TR Peak Velocity 224.0 cm/s TR Peak Gradient 20.1 mmHg PV Peak Velocity 63.9 cm/s PV Peak Gradient 1.6 mmHg FINDINGS LEFT VENTRICLE Normal left ventricular size. Wall thickness is normal. The left ventricular systolic function is grossly normal on limited imaging. No regional wall motion abnormalities are present. Left ventricular diastolic function parameters are normal. MITRAL VALVE Structurally normal mitral valve. Trace mitral valve regurgitation. AORTIC VALVE The aortic valve is not well visualized. TRICUSPID VALVE Structurally normal tricuspid valve. There is trace tricuspid valve regurgitation. Normal estimated pulmonary pressures. Wisam Garrison MD (Electronically Signed) Final Date:04 October 2016 19:20
[2016-10-04] MEDS: ATORVASTATIN 20 MG TAB PO SCH (21:30)
[2016-10-04] MEDS: CYCLOBENZAPRINE HCL 10 MG TAB PO SCH (21:30)
[2016-10-05] VITALS (18 sets, daily range): BP systolic 125–134; BP diastolic 69–78; PULSE 49–92; RESP 16–18; TEMP 98.1–98.3; O2SAT 94–98
[2016-10-05] MEDS: HEPARIN SODIUM - SQ 10,000 UNITS/ML VIAL SQ SCH ×2 (02:28→13:22)
[2016-10-05] MEDS: AZITHROMYCIN INJ 500 MG in SODIUM CHLOR 0.9% 250 ML INJ 250 ML IV SCH (02:28)
[2016-10-05] MEDS: LEVOTHYROXINE SODIUM 25 MCG TAB PO SCH (06:20)
[2016-10-05 07:22] LABS: BICARBONATE 21.4 MEQ/L (21.0-32.0); MAGNESIUM 2.1 MG/DL (1.5-2.5)
[2016-10-05 07:28] LABS: POTASSIUM 4.8 MEQ/L (3.5-5.1)
--- NOTE | 2016-10-05 08:33 | HHI.PR ---
Subjective Remarks alert no sob at rest Objective Vital Signs Date Time Temp Pulse Resp B/P Pulse Ox O2 Delivery O2 Flow Rate FiO2 10/05/16 06:00 56 10/05/16 05:00 62 10/05/16 04:00 66 10/05/16 03:15 68 18 126/69 94 10/05/16 03:00 71 10/05/16 02:00 70 10/05/16 01:00 60 10/05/16 00:00 60 10/04/16 23:51 95 Room Air 10/04/16 23:50 71 16 134/74 95 10/04/16 23:00 60 10/04/16 22:00 60 10/04/16 21:00 76 10/04/16 20:00 86 10/04/16 19:15 98.0 76 18 142/73 95 10/04/16 19:00 66 10/04/16 18:01 72 10/04/16 17:00 92 10/04/16 16:09 98 10/04/16 15:00 75 10/04/16 15:00 98.2 88 18 146/81 96 10/04/16 14:01 66 10/04/16 13:00 86 10/04/16 12:06 85 10/04/16 11:21 97.7 105 18 138/68 95 10/04/16 11:21 98 10/04/16 10:09 71 10/04/16 09:11 82 I/O 10/04/16 10/04/16 10/04/16 10/05/16 10/05/16 10/05/16 07:00 15:00 23:00 07:00 15:00 23:00 Intake Total 727 ml 960 ml 550 ml Output Total 900 ml 900 ml 1400 ml Balance -173 ml 60 ml -850 ml Intake Oral 480 ml 960 ml 300 ml IV Total 247 ml 250 ml Output Urine Total 900 ml 900 ml 1400 ml # Bowel Movements 0 0 Result Diagram: 10/03/16 0458 10/05/16 0455 Objective Remarks GENERAL: SKIN: Warm and dry. HEAD: Atraumatic. Normocephalic. EYES: Pupils equal and round. No scleral icterus. No injection or drainage. ENT: No nasal bleeding or discharge. Mucous membranes pink and moist. NECK: Trachea midline. No JVD. CARDIOVASCULAR: Regular rate and rhythm. RESPIRATORY: No accessory muscle use. Clear to auscultation. Breath sounds equal bilaterally. GASTROINTESTINAL: Abdomen soft, non-tender, nondistended. Hepatic and splenic margins not palpable. MUSCULOSKELETAL: Extremities without clubbing, cyanosis, or edema. No obvious deformities. NEUROLOGICAL: Awake and alert. No obvious cranial nerve deficits. Motor grossly within normal limits. Five out of 5 muscle strength in the arms and legs. Normal speech. PSYCHIATRIC: Appropriate mood and affect; insight and judgment normal. Assessment and Plan Assessment and Plan ass asthma ex. improved PLAN BRONCHODILATOR THERAPY CHANGE TO ORAL STEROIDS INCREASE ACTIVITY OK FOR D/C F/U OP Jen Li MD Oct 05, 2016 08:33
[2016-10-05] MEDS: DOCUSATE SODIUM 50 MG/SENNA 8.6 MG TAB PO SCH (10:14)
[2016-10-05] MEDS: PANTOPRAZOLE SOD 20 MG DELAYED RELEASE TAB PO SCH (10:14)
[2016-10-05] MEDS: GABAPENTIN 400 MG CAP PO SCH ×2 (10:14→13:22)
[2016-10-05] MEDS: predniSONE 10 MG TAB PO SCH (10:14)
[2016-10-05] MEDS: SODIUM CHLORIDE 0.9% FLUSH 10 ML FLUSH IV FLUSH SCH (10:15)
--- NOTE | 2016-10-05 12:15 | MB ---
cc: JEN LI M.D. Corrected: 10/06/2016 DATE OF CONSULTATION 10/03/16 REASON FOR CONSULTATION Status asthmaticus HISTORY OF PRESENT ILLNESS Mrs. Estevez is a 45-year-old female admitted with increasing shortness of breath and wheeze for several days prior to hospitalization, progressively worse. Clear from therapy. The patient has history of multiple hospitalizations with status asthmaticus requiring intubation, mechanical ventilation. She was given bronchodilator therapy as well as IV steroid therapy. She has improved. Shortness of breath is much better at this time. She has an occasional cough, small amount of whitish sputum. No fever or chills. No hemoptysis. PAST MEDICAL HISTORY Bronchial asthma as mentioned above. MEDICATIONS At home, 1. Advair twice a day 2. P.r.n. albuterol. ALLERGIES None known to medications. FAMILY HISTORY Noncontributory. REVIEW OF SYSTEMS 12-point review of systems as per HPI and past history otherwise negative. PHYSICAL EXAMINATION GENERAL: The patient is alert. VITAL SIGNS: Temperature 98, pulse 94, respirations 18, blood pressure 130/70. HEENT: Unremarkable. Eyes without icterus. Neck: Without adenopathy or thyroid enlargement. Central trachea. CHEST: No dullness to percussion, rare wheeze on auscultation. CARDIAC: PMI not appreciated. S1-S2 audible. No murmur or rub. ABDOMEN: Lax, audible bowel sounds. EXTREMITIES: No clubbing, cyanosis or edema. SKIN: Normal. No lymphadenopathy. LABORATORY DATA White count 9.2, hemoglobin 12, hematocrit 36, platelets 299,000 Sodium 138, potassium 3.9, BUN 10, creatinine one. Arterial blood gas upon presentation - pH 7.41, pCO2 36, pO2 of 46, O2 sat at present 95% on 2 liters oxygen via nasal cannula. IMAGING STUDIES Chest x-ray 12/03/2016 without acute disease. IMPRESSION 1. Status asthmaticus. The patient to continue bronchodilator therapy including intravenous steroids. 2. Hypothyroidism on replacement therapy including intravenous steroids. When stable will change to oral therapy. I do thank you for asking me to partake in Mrs. Estevez's care. Jen Li MD WWW/ /4:17 PM /12:16 PM KEVIN
--- NOTE | 2016-10-05 13:51 | HHI.PR ---
Subjective Interval History Alert, oriented, back to baseline, wants to go home, no palpitations Review of Systems Constitutional Constitutional Remarks As detailed above, 10 systems reviewed and otherwise negative Vitals/Results Intake & Output 10/04/16 10/04/16 10/05/16 15:00 23:00 07:00 Intake Total 960 ml 550 ml Output Total 900 ml 1400 ml Balance 60 ml -850 ml Intake Oral 960 ml 300 ml IV Total 250 ml Output Urine Total 900 ml 1400 ml # Bowel Movements 0 0 Vital Signs Vital Signs Date Time Temp Pulse Resp B/P Pulse Ox O2 Delivery O2 Flow Rate FiO2 10/05/16 13:00 66 10/05/16 12:36 97 10/05/16 12:00 68 10/05/16 11:30 72 10/05/16 11:30 98.3 72 16 125/78 95 10/05/16 11:00 74 10/05/16 10:00 70 10/05/16 09:00 92 10/05/16 08:00 60 10/05/16 07:45 49 10/05/16 07:45 98 Room Air 10/05/16 07:45 98.1 49 16 134/78 98 10/05/16 06:00 56 10/05/16 05:00 62 10/05/16 04:00 66 10/05/16 03:15 68 18 126/69 94 10/05/16 03:00 71 10/05/16 02:00 70 10/05/16 01:00 60 10/05/16 00:00 60 10/04/16 23:51 95 Room Air 10/04/16 23:50 71 16 134/74 95 10/04/16 23:00 60 10/04/16 22:00 60 10/04/16 21:00 76 10/04/16 20:00 86 10/04/16 19:15 98.0 76 18 142/73 95 10/04/16 19:00 66 10/04/16 18:01 72 10/04/16 17:00 92 10/04/16 16:09 98 10/04/16 15:00 75 10/04/16 15:00 98.2 88 18 146/81 96 10/04/16 14:01 66 CBC/BMP: 10/03/16 0458 10/05/16 0455 Lab Results Laboratory Tests Test 10/05/16 04:55 Sodium Level 139 MEQ/L Potassium Level 4.8 MEQ/L Chloride Level 107 MEQ/L Carbon Dioxide Level 21.4 MEQ/L Anion Gap 11 MEQ/L Blood Urea Nitrogen 19 MG/DL Creatinine 0.82 MG/DL Estimat Glomerular Filtration 76 ML/MIN Rate Random Glucose 111 MG/DL Calcium Level 8.6 MG/DL Phosphorus Level 3.3 MG/DL Magnesium Level 2.1 MG/DL Physical Exam General General Appearance: Comfortable, Obese Eyes Eye Exam: Pupils Reactive Ears & Nose Ears & Nose Exam: Nasal Mucosa [place] Throat Throat Exam: Oral Mucosa [place] & Moist Neck Neck Exam: Trachea Midline Pulmonary Resp Exam: Breath Sounds Equal, Crackles Cardiology CV Exam: Normal Sinus Rhythm, Good Perfusion Gastrointestinal/Abdomen GI Exam: Bowel Sounds Present Musculoskeletal MS Exam: Normal Tone Integumentary Skin Exam: Warm, Dry Extremeties Extremities Exam: No Edema Neurologic Neuro Exam: Alert, Awake, Oriented, Speech Clear, Moving All Extremities Psychiatric Psych Exam: Appropriate Responses VTE Prophylaxis VTE Prophylaxis Meds: Heparin Assessment/Plan Assessment/Plan Assessment Admitted with status asthmaticus/respiratory failure, initially was on BiPAP Respiratory distress secondary to the above Much improved now Had 2 short episodes of wide-complex tachycardia, question V. tach Echocardiogram was unremarkable Bronchospasm, resolved Obesity Management Discharge home Slow taper prednisone pulmonary following Needs to lose weight She was recommended to follow the primary physician regarding the palpitations Discussed with patient Discussed with nurse Discussed Condition with: Patient Discharge Minutes: 40 Tejal Lott MD Oct 05, 2016 13:51
[2016-10-05] MEDS ORDERED: PRED10 PO (13:55)
== END 2016-10-05 15:50 | disposition home or self-care (01) | DRG 202 ==
LOC: NEPE 22:50 → NEDA 23:44 → HCIN 10-03 00:57
PROVIDERS: ADMIT Specialist; ATTEND Specialist
PROC: 5A09457 Assistance with Respiratory Ventilation, 24-96 Consecutive Hours, Continuous Positive Airway Pressure (ICD-10-PCS; principal; 2016-10-02)
DX: J45.902 Unspecified asthma with status asthmaticus (principal); J96.90 Respiratory failure, unspecified, unspecified whether with hypoxia or hypercapnia; G62.9 Polyneuropathy, unspecified; F32.9 Major depressive disorder, single episode, unspecified; F41.9 Anxiety disorder, unspecified; K21.9 Gastro-esophageal reflux disease without esophagitis; Z87.891 Personal history of nicotine dependence; E78.5 Hyperlipidemia, unspecified; E03.9 Hypothyroidism, unspecified; E66.9 Obesity, unspecified; Z68.33 Body mass index [BMI] 33.0-33.9, adult
CPT/HCPCS: 71010; 80048; 80053; 80076; 82550; 82552; 82805; 83735; 83880; 84100; 84132; 84443; 84484; 85025; 93005; 93306; 94002; 94640; 94664; 96361; 96374; J0456; J1644; J2405; J2920; J7040; J7050; J7512

== ENCOUNTER 2016-10-07 17:59 | Emergency (ER) | payer OTHER ==
[~2016-10-07] VITALS: Ht 162.6 cm; Wt 90.0 kg
[~2016-10-07 17:59] MED LIST changes: -NAPR500 PO; +PRED10 PO
[2016-10-07 18:01] VITALS: BP 144/96; PULSE 103; RESP 24; TEMP 98.5; O2SAT 95
[2016-10-07 18:53] VITALS: BP 185/96; PULSE 95; RESP 26; O2SAT 96
[2016-10-07] MEDS ORDERED: SODIUM CHLORIDE 0.9% FLUSH 10 ML FLUSH IVF PRN (19:00)
[2016-10-07] MEDS ORDERED: methylPREDNISolone SOD SUCC 125 MG/2 ML VIAL IVP ONE (19:00)
--- NOTE | 2016-10-07 19:08 | PD ---
HPI Chief Complaint: Respiratory Symptoms Time Seen by Provider: 18:55 Travel History International Travel<30 days: No Contact w/Intl Traveler<30days: No Traveled to known affect area: No History of Present Illness HPI 45 yo F c/o dyspnea 2/2 asthma. She was admitted here for 5 days and discharged 2 days ago. She reports outpatient compliance with steroids. Chest tightness is reported c/w typical asthma cp. No fever. She reports multiple prior intubations for asthma. Timing constant. Severity moderate. 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) Diminished Hearing: No Endocrine: Yes Gastrointestinal Disorders: Yes GERD: Yes (Acid reflux) Genitourinary: No Hiatal Hernia: No Hypertension: No Immune Disorder: No Implanted Vascular Access Dvce: No Musculoskeletal: No Neurologic: No Psychiatric: No Reproductive: No Respiratory: Yes Immunizations Current: Yes Myocardial Infarction: No Radiation Therapy: No Renal Failure: No Seizures: No Sleep Apnea: No Thyroid Disease: Yes Ulcer: No PNEUMOCCOCAL Vaccine (Year): 3 ?: Not Menopausal: No : 3 Para: 3 Miscarriage: 0 : 0 Past Surgical History AICD: No Arteriovenous Shunt: No Insulin Pump: No Joint Replacement: No Neurologic Surgery: No Pacemaker: No Other Surgery: No Social History Alcohol Use: Yes (OCC, ) Tobacco Use: No (FORMER) Substance Use: No Allergies-Medications (Allergen,Severity, Reaction): Coded Allergies: *MDRO Multi-Drug Resistant Organism (Verified Adverse Reaction, Unknown, ) MRSA (sputum) - 02/2006, 10/2010, 11/2010 MRSA PCR screen negative - 05/20/15 & 07/31/15. Cleared per Infection Control Reported Meds & Prescriptions Reported Meds & Active Scripts Active Prednisone 10 Mg Tab 30 Mg PO DAILY Provide 30 pills of 10 mg each 3 pills a day 5 days 2 Pills a day 5 days One pill a day 5 days Reported Sertraline (Sertraline HCl) 50 Mg Tab 50 Mg PO DAILY Duoneb (Ipratropium-Albuterol Neb) 0.5-2.5 Mg/3 Ml Neb 1 Nebule INH Q6HR PRN Advair Hfa 12 GM Inh (Fluticasone-Salmeterol 12 GM Inh) 115-21 Mcg/Act Aer 1 Puff INH DAILY@0600 Proair Hfa 8.5 GM Inh (Albuterol Sulfate) 90 Mcg/Act Aer 1 Puff INH Q6HR PRN 108 mcg/actuation Omeprazole 20 Mg Tab 20 Mg PO DAILY Levothyroxine (Levothyroxine Sodium) 25 Mcg Tab 25 Mcg PO DAILY Atorvastatin (Atorvastatin Calcium) 20 Mg Tab 20 Mg PO HS Gabapentin 800 Mg Tab 800 Mg PO TID Flexeril (Cyclobenzaprine HCl) 10 Mg Tab 10 Mg PO HS Review of Systems Except as stated in HPI: all other systems reviewed are Neg General / Constitutional: No: Fever Skin: Positive Rash Physical Exam Narrative GENERAL: 45 yo F, WNWD, moderate respiratory distress, speaking long sentences with a whispering voice SKIN: Warm and dry. HEAD: Atraumatic. Normocephalic. EYES: Pupils equal and round. No scleral icterus. No injection or drainage. ENT: No nasal bleeding or discharge. Mucous membranes pink and moist. NECK: Trachea midline. No JVD. CARDIOVASCULAR: REgular rhythm. Tachycardia. RESPIRATORY: Mild tachypnea. Trace wheezing bilaterally. GASTROINTESTINAL: Abdomen soft, non-tender, nondistended. Hepatic and splenic margins not palpable. MUSCULOSKELETAL: Extremities without clubbing, cyanosis, or edema. No obvious deformities. NEUROLOGICAL: Awake and alert. No obvious cranial nerve deficits. Motor grossly within normal limits. Five out of 5 muscle strength in the arms and legs. Normal speech. PSYCHIATRIC: Appropriate mood and affect; insight and judgment normal. Data Data Last Documented VS Vital Signs Date Time Temp Pulse Resp B/P Pulse Ox O2 Delivery O2 Flow Rate FiO2 10/07/16 20:18 98 2 10/07/16 20:18 79 16 147/73 10/07/16 20:18 Nasal Cannula 10/07/16 18:01 98.5 VS reviewed Orders Basic Metabolic Panel (Bmp) (10/07/16 18:55) Complete Blood Count With Diff (10/07/16 18:55) Ecg Monitoring (10/07/16 18:55) Iv Access Insert/Monitor (10/07/16 18:55) Oximetry (10/07/16 18:55) Oxygen Administration (10/07/16 18:55) Methylprednisolone So Succ Inj (Solumedr (10/07/16 19:00) Albuterol-Ipratropium Neb (Duoneb Neb) (10/07/16 19:00) Sodium Chloride 0.9% Flush (Ns Flush) (10/07/16 19:00) Resp Bipap / Cpap Non Invas Vt (10/07/16 ) Arterial Blood Gas (Abg) (10/07/16 ) Chest, Single Ap (10/07/16 ) Electrocardiogram (10/07/16 19:06) Labs Laboratory Tests Test 10/07/16 10/07/16 19:20 19:45 Blood Gas Puncture Site RT RADIAL Blood Gas Patient Temperature 98.6 Blood Gas HCO3 23 mmol/L Blood Gas Base Excess -0.2 mmol/L Blood Gas Oxygen Saturation 92 % Arterial Blood pH 7.46 Arterial Blood Partial 33 mmHg Pressure CO2 Arterial Blood Partial 64 mmHG Pressure O2 Arterial Blood Oxygen Content 16.9 Vol % Arterial Blood 0.9 % Carboxyhemoglobin Arterial Blood Methemoglobin 0.7 % Blood Gas Hemoglobin 13.1 G/DL Oxygen Delivery Device NASAL CANNULA Blood Gas Liter Flow 3 L/M White Blood Count 18.2 TH/MM3 Red Blood Count 4.69 MIL/MM3 Hemoglobin 12.8 GM/DL Hematocrit 40.4 % Mean Corpuscular Volume 86.0 FL Mean Corpuscular Hemoglobin 27.3 PG Mean Corpuscular Hemoglobin 31.8 % Concent Red Cell Distribution Width 15.2 % Platelet Count 327 TH/MM3 Mean Platelet Volume 8.4 FL Neutrophils (%) (Auto) 77.9 % Lymphocytes (%) (Auto) 17.6 % Monocytes (%) (Auto) 4.2 % Eosinophils (%) (Auto) 0.1 % Basophils (%) (Auto) 0.2 % Neutrophils # (Auto) 14.2 TH/MM3 Lymphocytes # (Auto) 3.2 TH/MM3 Monocytes # (Auto) 0.8 TH/MM3 Eosinophils # (Auto) 0.0 TH/MM3 Basophils # (Auto) 0.0 TH/MM3 CBC Comment AUTO DIFF MDM Medical Decision Making Medical Screen Exam Complete: Yes Emergency Medical Condition: Yes Differential Diagnosis Asthma, pneumonia, pneumothorax, anxiety Narrative Course Patient ambulated around the ER. The O2 sat upon return to the bed was 98% on room air. Her respiratory rate was normal upon return. She reports feeling much better and states she is ready to go home. Follow-up with Dr. Nielson. EKG reveals a sinus rhythm at a rate of 80 with no ischemic injury morphology There is a leukocytosis of about 18,000 which is not unexpected in the setting of concurrent steroid use. She has a prednisone prescription with her that she'll continue to take starting tomorrow. She received Solu-Medrol here. We discussed home modifications including her purifier for the bedroom and keeping the carpets very clean. Diagnosis Primary Impression: Asthma Qualified Code: J45.909 - Uncomplicated asthma, unspecified asthma severity Referrals: Primary Care Physician 2 days Additional Instructions: You have a choice when it comes to health care, and we are glad that you chose [facility]. Hopefully, we have met your expectations on today's visit. You are welcome to return to [facility] at any time, as we are committed to meeting the health care needs of our community. Med/Other Pt SpecificInfo: Prescription(s) given Disposition: 01 DISCHARGE HOME Condition: Sarmad Potts MD Oct 07, 2016 19:08
[2016-10-07] MEDS: RESP: ALBUTEROL 2.5 MG/IPRATROPIUM 0.5 MG NEB (SCH) INH ×2 (19:21→19:30)
[2016-10-07] MEDS ORDERED: SERT-132 PO (19:22)
[2016-10-07 19:36] LABS: BLOOD GAS BASE EXCESS -0.2 mmol/L (-2-2); BLOOD GAS CARBOXYHEMOGLOBIN 0.9 % (0-4); BLOOD GAS HCO3 23 mmol/L (22-26); BLOOD GAS METHEMOGLOBIN 0.7 % (0-2); BLOOD GAS O2 HGB SATURATION 92 % (90-100); BLOOD GAS OXYGEN CONTENT 16.9 Vol % (12.0-20.0); BLOOD GAS PCO2 33 mmHg (38-42); BLOOD GAS PO2 64 mmHG (61-120); BLOOD GAS TOTAL HGB 13.1 G/DL (12.0-16.0); CRITICAL VALUE NO; TEMP CORR TO 98.6
[2016-10-07 19:37] LABS: DRAW SITE RT RADIAL; LITER FLOW 3 L/M; NUMBER OF ARTERIAL PUNCTURES 1; OXYGEN DEVICE NASAL CANNULA; STAT YES; ULNAR PULSE PRESENT
--- NOTE | 2016-10-07 19:46 | RADRPT ---
EXAM DATE/TIME: 10/07/2016 19:20 [facility] COMPARISON: CHEST SINGLE AP, October 02, 2016, 23:12. INDICATIONS : Short of breath. MEDICAL HISTORY : None. SURGICAL HISTORY : None. ENCOUNTER: Initial ACUITY: 1 day PAIN SCORE: 0/10 LOCATION: Bilateral chest FINDINGS: There is atelectasis at the bases mass seen. No definite effusion. Osseous structures are intact, hea rt size normal. CONCLUSION: Basilar atelectasis is now seen. Kwasi Underwood MD on October 07, 2016 at 19:44 Board Certified Radiologist. This report was verified electronically.
[2016-10-07 20:11] LABS: AUTOMATED NEUTROPHIL # 14.2 TH/MM3 (1.8-7.7); BASOPHIL % 0.2 % (0.0-2.0); EOSINOPHIL % 0.1 % (0.0-4.0); HEMATOCRIT 40.4 % (35.0-46.0); LYMPH % 17.6 % (9.0-44.0); LYMPHOCYTE # 3.2 TH/MM3 (1.0-4.8); MEAN CORPUSCULAR HEMOGLOBIN 27.3 PG (27.0-34.0); MEAN CORPUSCULAR HGB CONC 31.8 % (32.0-36.0); MONO % 4.2 % (0.0-8.0); NEUT % 77.9 % (16.0-70.0); PLATELET COUNT 327 TH/MM3 (150-450); RED BLOOD COUNT 4.69 MIL/MM3 (4.00-5.30); RED CELL DISTRIBUTION WIDTH 15.2 % (11.6-17.2); WHITE BLOOD COUNT 18.2 TH/MM3 (4.0-11.0)
[2016-10-07 20:16] LABS: HEMO FLAGS AUTO DIFF
[2016-10-07 20:18] VITALS: BP 147/73; PULSE 75; O2SAT 96; O2SAT 98
[2016-10-07 20:35] LABS: POTASSIUM 4.8 MEQ/L (3.5-5.1)
[2016-10-07 21:18] LABS: SCAN/DIFF AUTO DIFF CONFIRMED
[2016-10-07 21:19] LABS: PLATELET ESTIMATE SMEAR NORMAL (NORMAL); PLATELET MORPHOLOGY NORMAL (NORMAL)
--- NOTE | 2016-10-08 15:08 | EKG ---
Date Performed: 10/07/2016 Time Performed: 19:06:25 PTAGE: 45 years EKG: Sinus rhythm Nonspecific ST-T wave changes Compared to prior tracing no significant change NORMAL ECG PREVIOUS TRACING : 10/03/16 @ 2355 DOCTOR: Sherrell Pham Interpretating Date/Time 10/08/2016 15:00:08
== END 2016-10-07 20:34 | disposition home or self-care (01) ==
LOC: NEPE 17:59
DX: J45.909 Unspecified asthma, uncomplicated (principal); D72.829 Elevated white blood cell count, unspecified; R21 Rash and other nonspecific skin eruption; R07.89 Other chest pain; F41.9 Anxiety disorder, unspecified; E78.00 Pure hypercholesterolemia, unspecified; J44.9 Chronic obstructive pulmonary disease, unspecified; K21.9 Gastro-esophageal reflux disease without esophagitis; G62.9 Polyneuropathy, unspecified
CPT/HCPCS: 36600; 71010; 80048; 82805; 85025; 93005; 94640; 94664; 96374; 99285; J2930

== ENCOUNTER 2017-02-07 20:02 | Emergency (ER) | payer OTHER ==
[~2017-02-07] VITALS: Ht 162.6 cm; Wt 90.0 kg
[~2017-02-07 20:02] MED LIST changes: +CYCL10TA PO; -CYCL1TAB29 PO; -OMEP20TA PO; +OMEP20TA93 PO; +SERT-132 PO; -ZOLO50TA PO
[2017-02-07 20:11] VITALS: BP 173/74; PULSE 106; RESP 26; TEMP 98.3; O2SAT 100
[2017-02-07] MEDS ORDERED: MORPHINE SULFATE 4 MG/ML INJ IV PUSH ONE (20:15)
[2017-02-07] MEDS ORDERED: SODIUM CHLORIDE 0.9% FLUSH 10 ML FLUSH IV FLUSH PRN (20:15)
[2017-02-07] MEDS ORDERED: ONDANSETRON HCL 4 MG/2 ML VIAL IVP ONE (20:15)
[2017-02-07] MEDS ORDERED: SODIUM CHLOR 0.9% 1000 ML INJ 1,000 ML IV SCH (20:15)
[2017-02-07 20:20] VITALS: O2SAT 96
[2017-02-07 20:21] VITALS: BP 125/56
--- NOTE | 2017-02-07 20:24 | PD ---
HPI Chief Complaint: Respiratory Symptoms Time Seen by Provider: 20:22 Travel History International Travel<30 days: No Contact w/Intl Traveler<30days: No Traveled to known affect area: No History of Present Illness HPI This is a 46-year-old female who presents via EMS for evaluation of abdominal pain. For most of the day she has had back pain and abdominal pain. The pain is primarily periumbilical and epigastric on examination. The pain is sharp and constant, seems to be worse when breathing in deep. She reports taking a bath this evening and becoming dyspneic, nauseous, dizzy. She was having wheezing on route and she was given 2 DuoNeb treatments and Solu-Medrol with improvement of her breathing. She has never had this type of abdominal pain before. No history of abdominal surgeries in the past. Denies any dysuria, vomiting, fevers or chills, diarrhea or constipation. No other complaints. Primary care physician Dr. Nielson. [facility] Past Medical History Hx Anticoagulant Therapy: No Asthma: Yes Blood Disorders: No Anxiety: Yes Depression: Yes Heart Rhythm Problems: No Cancer: No Cardiovascular Problems: No High Cholesterol: Yes Chemotherapy: No Chest Pain: No Congestive Heart Failure: No COPD: Yes Cerebrovascular Accident: No Diminished Hearing: No Endocrine: Yes Gastrointestinal Disorders: Yes GERD: Yes (Acid reflux) Genitourinary: No Hiatal Hernia: No Hypertension: No Immune Disorder: No Implanted Vascular Access Dvce: No Musculoskeletal: No Neurologic: No Psychiatric: No Reproductive: No Respiratory: Yes Immunizations Current: Yes Myocardial Infarction: No Radiation Therapy: No Renal Failure: No Seizures: No Sleep Apnea: No Thyroid Disease: Yes Ulcer: No Tetanus Vaccination: > 5 Years Influenza Vaccination: No PNEUMOCCOCAL Vaccine (Year): 3 ?: Not LMP: 02/03/17 Menopausal: No : 3 Para: 3 Miscarriage: 0 : 0 Past Surgical History AICD: No Arteriovenous Shunt: No Insulin Pump: No Joint Replacement: No Neurologic Surgery: No Pacemaker: No Other Surgery: No Social History Alcohol Use: Yes (OCC, ) Tobacco Use: No (FORMER) Substance Use: No Allergies-Medications (Allergen,Severity, Reaction): Coded Allergies: *MDRO Multi-Drug Resistant Organism (Verified Adverse Reaction, Unknown, 02/07/17) MRSA (sputum) - 02/2006, 10/2010, 11/2010 MRSA PCR screen negative - 05/20/15 & 07/31/15. Cleared per Infection Control Reported Meds & Prescriptions Reported Meds & Active Scripts Active Protonix (Pantoprazole Sodium) 20 Mg Tab 20 Mg PO DAILY 30 Days Gaviscon (Aluminum Hydroxide-Mag Trisil) 80-14.2 mg Chew 2-4 Tab CHEW QID PRN Maximum 16 tabs/24 hrs Reported Ranitidine (Ranitidine HCl) 150 Mg Tab 150 Mg PO BID Sertraline (Sertraline HCl) 50 Mg Tab 50 Mg PO DAILY Duoneb (Ipratropium-Albuterol Neb) 0.5-2.5 Mg/3 Ml Neb 1 Nebule INH Q6HR PRN Advair Hfa 12 GM Inh (Fluticasone-Salmeterol 12 GM Inh) 115-21 Mcg/Act Aer 1 Puff INH DAILY@0600 Proair Hfa 8.5 GM Inh (Albuterol Sulfate) 90 Mcg/Act Aer 1 Puff INH Q6HR PRN 108 mcg/actuation Levothyroxine (Levothyroxine Sodium) 25 Mcg Tab 25 Mcg PO DAILY Atorvastatin (Atorvastatin Calcium) 20 Mg Tab 20 Mg PO HS Gabapentin 800 Mg Tab 800 Mg PO TID Flexeril (Cyclobenzaprine HCl) 10 Mg Tab 10 Mg PO HS Review of Systems Except as stated in HPI: all other systems reviewed are Neg Physical Exam Narrative GENERAL: Well-developed well-nourished female in no acute distress SKIN: Warm and dry. HEAD: Atraumatic. Normocephalic. EYES: Pupils equal and round. No scleral icterus. No injection or drainage. ENT: No nasal bleeding or discharge. Mucous membranes pink and moist. NECK: Trachea midline. No JVD. CARDIOVASCULAR: Regular rate and rhythm. No murmur appreciated. RESPIRATORY: No accessory muscle use. Very slight wheezing noted. GASTROINTESTINAL: Abdomen soft, periumbilical/epigastric tenderness to palpation without guarding, no CVA tenderness. MUSCULOSKELETAL: No obvious deformities. No clubbing. No cyanosis. No edema. NEUROLOGICAL: Awake and alert. No obvious cranial nerve deficits. Motor grossly within normal limits. Normal speech. PSYCHIATRIC: Appropriate mood and affect; insight and judgment normal. Data Data Last Documented VS Vital Signs Date Time Temp Pulse Resp B/P (MAP) Pulse Ox O2 Delivery O2 Flow Rate FiO2 02/07/17 21:38 78 18 127/78 (94) 99 Room Air 02/07/17 20:20 2.00 02/07/17 20:11 98.3 Orders Orders Complete Blood Count With Diff (02/07/17 20:15) Comprehensive Metabolic Panel (02/07/17 20:15) Lipase (02/07/17 20:15) Urinalysis - C+S If Indicated (02/07/17 20:15) Ct Abd/Pel W Iv Contrast(Rout) (02/07/17 20:15) Iv Access Insert/Monitor (02/07/17 20:15) Ecg Monitoring (02/07/17 20:15) Oximetry (02/07/17 20:15) Morphine Inj (Morphine Inj) (02/07/17 20:15) Ondansetron Inj (Zofran Inj) (02/07/17 20:15) Sodium Chlor 0.9% 1000 Ml Inj (Ns 1000 M (02/07/17 20:15) Sodium Chloride 0.9% Flush (Ns Flush) (02/07/17 20:15) Chest, Single Ap (02/07/17 20:15) Ed Urine Pregnancytest Poc (02/07/17 20:15) Electrocardiogram (02/07/17 ) Iohexol 350 Inj (Omnipaque 350 Inj) (02/07/17 21:39) Potassium Chloride (Kcl) (02/07/17 22:00) Al-Mag Hy-Si 40-40-4 Mg/Ml Liq (Mag-Al P (02/07/17 22:15) Lidocaine 2% Viscous (Xylocaine 2% Visco (02/07/17 22:15) Labs Laboratory Tests Test 02/07/17 20:25 02/07/17 21:04 White Blood Count 12.0 TH/MM3 Red Blood Count 4.39 MIL/MM3 Hemoglobin 12.9 GM/DL Hematocrit 38.1 % Mean Corpuscular Volume 86.8 FL Mean Corpuscular Hemoglobin 29.3 PG Mean Corpuscular Hemoglobin Concent 33.8 % Red Cell Distribution Width 13.9 % Platelet Count 285 TH/MM3 Mean Platelet Volume 8.4 FL Neutrophils (%) (Auto) 51.5 % Lymphocytes (%) (Auto) 37.1 % Monocytes (%) (Auto) 6.7 % Eosinophils (%) (Auto) 4.2 % Basophils (%) (Auto) 0.5 % Neutrophils # (Auto) 6.2 TH/MM3 Lymphocytes # (Auto) 4.5 TH/MM3 Monocytes # (Auto) 0.8 TH/MM3 Eosinophils # (Auto) 0.5 TH/MM3 Basophils # (Auto) 0.1 TH/MM3 CBC Comment DIFF FINAL Differential Comment Blood Urea Nitrogen 11 MG/DL Creatinine 0.82 MG/DL Random Glucose 82 MG/DL Total Protein 7.7 GM/DL Albumin 3.4 GM/DL Calcium Level 8.2 MG/DL Alkaline Phosphatase 80 U/L Aspartate Amino Transf (AST/SGOT) 18 U/L Alanine Aminotransferase (ALT/SGPT) 23 U/L Total Bilirubin 0.1 MG/DL Sodium Level 138 MEQ/L Potassium Level 3.4 MEQ/L Chloride Level 107 MEQ/L Carbon Dioxide Level 21.4 MEQ/L Anion Gap 10 MEQ/L Estimat Glomerular Filtration Rate 75 ML/MIN Lipase 119 U/L Urine Color LIGHT-YELLOW Urine Turbidity CLEAR Urine pH 5.5 Urine Specific [place] 1.006 Urine Protein NEG mg/dL Urine Glucose (UA) NEG mg/dL Urine Ketones TRACE mg/dL Urine Occult Blood NEG Urine Nitrite NEG Urine Bilirubin NEG Urine Urobilinogen LESS THAN 2.0 MG/DL Urine Leukocyte Esterase NEG Urine RBC 0-3 /hpf Urine WBC 0-2 /hpf Urine Squamous Epithelial Cells 6-8 /hpf Microscopic Urinalysis Comment CULT NOT INDICATED MDM Medical Decision Making Medical Screen Exam Complete: Yes Emergency Medical Condition: Yes Medical Record Reviewed: Yes Interpretation(s) EKG normal sinus rhythm occasional PVC CONCLUSION: 1. Right lobe hepatic lesion very likely to represent a hemangioma. This could be confirmed with a routine followup MRI abdomen. 2. No acute findings in the abdomen and pelvis. 3. Right hip osteoarthritic findings. Differential Diagnosis Colitis, diverticulitis, pancreatitis, peptic ulcer disease, gastritis, mesenteric ischemia Narrative Course Plan is for basic lab work, CT abdomen and pelvis, urinalysis. She was given analgesics with significant improvement in her symptoms. Her laboratory imaging studies revealed no acute abnormalities. She does have a right hepatic lobe lesion and the radiologist recommends outpatient MRI. She was given a copy of her CT results for follow-up purposes. Her abdominal pain, while somewhat vague and generalized, seems to be primarily in the epigastric region could represent some gastritis or peptic ulcer disease. The patient discharged with a short course of Protonix and Gaviscon. Diagnosis Primary Impression: Asthma Qualified Codes: J45.909 - Unspecified asthma, uncomplicated Additional Impression: Abdominal pain Qualified Codes: R10.13 - Epigastric pain Referrals: [employer] Primary Care Physician Additional Instructions: Medication as needed. Follow up closely with primary care physician. Return for any emergent medical conditions. Med/Other Pt SpecificInfo: Prescription(s) given Scripts Pantoprazole (Protonix) 20 Mg Tab 20 MG PO DAILY for Reflux for 30 Days, #30 TAB 0 Refills Prov: Sarmad Matthews MD 02/07/17 Aluminum Hydroxide-Mag Trisil (Gaviscon) 80-14.2 mg Chew 2-4 TAB CHEW QID Y for HEARTBURN, #15 TAB 0 Refills Maximum 16 tabs/24 hrs Prov: Sarmad Matthews MD 02/07/17 Disposition: 01 DISCHARGE HOME Condition: Stable David Aguilar Feb 07, 2017 20:24
[2017-02-07] MEDS ORDERED: RANI150T PO (20:45)
[2017-02-07 20:51] LABS: AUTOMATED NEUTROPHIL # 6.2 TH/MM3 (1.8-7.7); BASOPHIL # 0.1 TH/MM3 (0-0.2); BASOPHIL % 0.5 % (0.0-2.0); EOSINOPHIL # 0.5 TH/MM3 (0-0.4); EOSINOPHIL % 4.2 % (0.0-4.0); HEMATOCRIT 38.1 % (35.0-46.0); HEMO FLAGS DIFF FINAL; LYMPH % 37.1 % (9.0-44.0); LYMPHOCYTE # 4.5 TH/MM3 (1.0-4.8); MEAN CELL VOLUME 86.8 FL (80.0-100.0); MEAN CORPUSCULAR HEMOGLOBIN 29.3 PG (27.0-34.0); MEAN CORPUSCULAR HGB CONC 33.8 % (32.0-36.0); MONO % 6.7 % (0.0-8.0); NEUT % 51.5 % (16.0-70.0); PLATELET COUNT 285 TH/MM3 (150-450); RED BLOOD COUNT 4.39 MIL/MM3 (4.00-5.30); RED CELL DISTRIBUTION WIDTH 13.9 % (11.6-17.2)
--- NOTE | 2017-02-07 20:52 | RADRPT ---
EXAM DATE/TIME: 02/07/2017 20:23 [facility] COMPARISON: CHEST SINGLE AP, October 07, 2016, 19:20. INDICATIONS : Short of breath MEDICAL HISTORY : Asthma SURGICAL HISTORY : None. ENCOUNTER: Initial ACUITY: 1 day PAIN SCORE: 0/10 LOCATION: chest FINDINGS: Single AP view of the chest. Mild patchy opacity in the lateral left lung base similar to the prior s tudy of October 07, 2016. Lungs otherwise clear. Cardiomediastinal silhouette within normal limits. No e vidence of pleural effusion or pneumothorax. CONCLUSION: Mild chronic opacity in the lateral left lung base. No other acute cardiopulmonary disease identified . Shant Goel MD on February 07, 2017 at 20:50 Board Certified Radiologist. This report was verified electronically.
[2017-02-07 21:05] LABS: ALT (GPT) 23 U/L (10-53); ANION GAP 10 MEQ/L (5-15); AST (GOT) 18 U/L (15-37); BICARBONATE 21.4 MEQ/L (21.0-32.0); BLOOD UREA NITROGEN 11 MG/DL (7-18); CHLORIDE 107 MEQ/L (98-107); GLOMERULAR FILTRATION RATE 75 ML/MIN (>89); POTASSIUM 3.4 MEQ/L (3.5-5.1); SODIUM (NA) 138 MEQ/L (136-145)
[2017-02-07 21:08] LABS: ALKALINE PHOSPHATASE 80 U/L (45-117); TOTAL BILIRUBIN ADULT 0.1 MG/DL (0.2-1.0)
[2017-02-07 21:36] LABS: BLOOD, URINE NEG (NEG); GLUCOSE,URINE NEG (NEG); KETONE, URINE TRACE mg/dL (NEG); NITRITE,URINE NEG (NEG); PH, URINE 5.5 (5.0-8.5); URINE COLOR LIGHT-YELLOW (YELLW/STRAW)
[2017-02-07 21:38] VITALS: BP 127/78; PULSE 78; RESP 18; O2SAT 99
[2017-02-07] MEDS ORDERED: IOHEXOL 350 MG/ML 10 ML VIAL (for RAD DIAG) IVCONTRAST ONE (21:39)
[2017-02-07 21:45] LABS: COMMENT (UR) CULT NOT INDICATED; CULTURE IF INDICATED CULT NOT INDICATED; RBC, URINE 0-3 /hpf (0-3); WBC, URINE 0-2 /hpf (0-5)
--- NOTE | 2017-02-07 21:55 | RADRPT ---
EXAM DATE/TIME: 02/07/2017 21:22 [facility] COMPARISON: CT ABDOMEN & PELVIS W CONTRAST, November 28, 2014, 18:56. INDICATIONS : Right sided abdominal pain. IV CONTRAST: 93 cc Omnipaque 350 (iohexol) IV ORAL CONTRAST: No oral contrast ingested. RADIATION DOSE: 8.29 CTDIvol (mGy) MEDICAL HISTORY : Diabetes mellitus type 2. Gastroesophageal reflux disease. SURGICAL HISTORY : None. ENCOUNTER: Initial ACUITY: 1 day PAIN SCALE: 4/10 LOCATION: Right abdomen TECHNIQUE: Volumetric scanning of the abdomen and pelvis was performed. Using automated exposure control and ad justment of the mA and/or kV according to patient size, radiation dose was kept as low as reasonably achievable to obtain optimal diagnostic quality images. DICOM format image data is available electro nically for review and comparison. FINDINGS: LOWER LUNGS: Mild atelectasis at the lung bases. LIVER: Mixed density lesion is again identified in the posterior right lobe of the liver with discontinuous nodular peripheral enhancement suggesting a hemangioma. It measures 2.9 cm compared to 2.5 cm on the prior study of 11/28/2014 but this may be due to phase of enhancement. Liver is otherwise unremarkable. Gallbladder unremarkable. SPLEEN: Normal size without lesion. PANCREAS: Within normal limits. KIDNEYS: Normal in size and shape. There is no mass, stone or hydronephrosis. ADRENAL GLANDS: Within normal limits. VASCULAR: There is no aortic aneurysm. BOWEL/MESENTERY: No evidence of bowel dilatation. No free air or free fluid. Appendix within normal limits. ABDOMINAL WALL: Within normal limits. RETROPERITONEUM: There is no lymphadenopathy. BLADDER: No wall thickening or mass. REPRODUCTIVE: Within normal limits. INGUINAL: There is no lymphadenopathy or hernia. MUSCULOSKELETAL: Mild osteoarthritic findings right hip. CONCLUSION: 1. Right lobe hepatic lesion very likely to represent a hemangioma. This could be confirmed with a ro utine followup MRI abdomen. 2. No acute findings in the abdomen and pelvis. 3. Right hip osteoarthritic findings. Shant Goel MD on February 07, 2017 at 21:46 Board Certified Radiologist. This report was verified electronically.
[2017-02-07] MEDS ORDERED: POTASSIUM CHLORIDE 20 MEQ CONTROLLED RELEASE TAB PO ONE (22:00)
[2017-02-07] MEDS ORDERED: PANT20 PO (22:09)
[2017-02-07] MEDS ORDERED: GAVICHW CHEW (22:09)
[2017-02-07] MEDS ORDERED: ALUMINUM/MAGNESIUM/SIMETH 30 ML CUP PO ONE (22:15)
[2017-02-07] MEDS ORDERED: LIDOCAINE VISCOUS 2% SOLN 15 ML UDC PO ONE (22:15)
--- NOTE | 2017-02-08 16:09 | EKG ---
Date Performed: 02/07/2017 Time Performed: 20:15:34 PTAGE: 46 years EKG: Sinus rhythm WITH OCCASIONAL VENTRICULAR PREMATURE COMPLEXES LOW QRS VOLTAGE IN PRECORDIAL LEADS NONSPECIFIC ST & T-WAVE ABNORMALITY Compared to prior tracing no significant change BORDERLINE ECG PREVIOUS TRACING : 10/07/2016 19.06 DOCTOR: Wilmer Maguire Interpretating Date/Time 02/08/2017 16:07:15
== END 2017-02-07 22:36 | disposition home or self-care (01) ==
LOC: NEPC 20:02
DX: J45.909 Unspecified asthma, uncomplicated (principal); R10.13 Epigastric pain; R11.0 Nausea; R42 Dizziness and giddiness; J44.9 Chronic obstructive pulmonary disease, unspecified; K21.9 Gastro-esophageal reflux disease without esophagitis; F41.9 Anxiety disorder, unspecified; F32.9 Major depressive disorder, single episode, unspecified; E78.00 Pure hypercholesterolemia, unspecified
CPT/HCPCS: 71010; 74177; 80053; 81001; 83690; 84703; 85025; 93005; 96361; 96374; 96375; 99285; J2270; J2405; J7030; Q9967

== ENCOUNTER 2017-10-27 19:47 | Observation (INO) ==
[2017-10-27] MEDS ORDERED: Mag Sulf 1 gm/100 ml Premix 100 ML IV.SIG ONE (20:05)
--- NOTE | 2017-10-27 20:37 | XR ---
EXAM DATE: 10/27/2017 8:33 PM EDT AGE/SEX: 47 years / Female INDICATIONS: Short of breath. CLINICAL DATA: This is the patient's initial encounter. Patient reports that signs and symptoms have been present for 1 day and indicates a pain score of 0/10. MEDICAL/SURGICAL HISTORY: Asthma. None. [place] [facility] [place]. . FINDINGS: Very mild parenchymal consolidation seen of both bases and probably with very small bilateral pleural effusions. No pneumothorax. Heart size stable, within normal limits. CONCLUSION: Tiny effusions and mild parenchymal consolidation at each base. Electronically signed by: Oseas Myers MD 10/27/2017 8:36 PM EDT
[2017-10-27 20:55] LABS: ABG Base Excess -2.7 mmol/L (-2-2); ABG PCO2 24 mmHg (38-42); ABG PO2 201 mmHg (61-120)
[2017-10-27 20:56] LABS: Baso # (Auto) 0.1 th/mm3 (0.0-0.2); Baso % (Auto) 0.8 % (0.0-2.0); Eos # (Auto) 0.2 th/mm3 (0.0-0.4); Eos % (Auto) 2.2 % (0.0-4.0); Hematocrit 39.7 % (35.0-46.0); Hemoglobin 12.7 gm/dL (11.6-15.3); Lymph # (Auto) 3.1 th/mm3 (1.0-4.8); Lymph % (Auto) 31.5 % (9.0-44.0); Mean Corpuscular Hemoglobin 29.5 pg (27.0-34.0); Mean Corpuscular Volume 92.1 fL (80.0-100.0); Mean Platelet Volume 8.5 fL (7.0-11.0); Mono # (Auto) 0.6 th/mm3 (0.0-0.9); Mono % (Auto) 6.2 % (0.0-8.0); Neut # (Auto) 5.8 th/mm3 (1.8-7.7); Neut % (Auto) 59.3 % (16.0-70.0); Platelet Count 269 th/mm3 (150-450); Red Blood Count 4.31 mil/mm3 (4.00-5.30); Red Cell Distribution Width 14.2 % (11.6-17.2); White Blood Count 9.8 th/mm3 (4.0-11.0)
[2017-10-27 21:12] LABS: Alanine Aminotransferase 23 U/L (10-53)
[2017-10-27 21:14] LABS: Albumin 3.6 g/dL (3.4-5.0); Alkaline Phosphatase 89 U/L (45-117); Anion Gap 12 meq/L (5-15); Aspartate Aminotransferase 25 U/L (15-37); Blood Urea Nitrogen 15 mg/dL (7-18); Calcium 9.1 mg/dL (8.5-10.1); Carbon Dioxide 17.8 meq/L (21.0-32.0); Chloride 108 meq/L (98-107); Glomerular Filtration Rate 72 mL/min (>89); Glucose,Random 90 mg/dL (74-106); Potassium 4.1 meq/L (3.5-5.1); Sodium 138 meq/L (136-145); Total Protein 7.6 g/dL (6.4-8.2)
--- NOTE | 2017-10-27 21:31 | ED ---
HPI General Chief complaint: Respiratory Symptoms Stated complaint: Evac/Respiratory Time Seen by Provider: 10/27/17 20:03 Source: patient Mode of arrival: EMS History of Present Illness HPI narrative: 47-year-old female with history of asthma presents emergency department complaining of an asthma attack that started about 6pm tonight. Patient says that her last episode was about a year ago and is well controlled with inhalers previously today. According to EVAC, she was given DuoNeb 2 albuterol 2 and 125 mg SoluMedrol without relief. Patient states she is getting very tired is having trouble breathing. She is rather anxious. Denies triggers or potential causes of this attack. Related Data Home Medications Medication Instructions Recorded Confirmed albuterol sulfate 0.63 mg INHALATION Q4H PRN 10/27/17 10/27/17 albuterol sulfate [ProAir HFA] 2 puff INHALATION Q4-6H 10/27/17 10/27/17 fluticasone-salmeterol [Advair 1 inh INHALATION BID 10/27/17 10/27/17 Diskus] gabapentin 800 mg PO TID 10/27/17 10/27/17 levothyroxine 50 mcg PO DAILY 10/27/17 10/28/17 sertraline [Zoloft] 100 mg PO DAILY 10/27/17 10/28/17 Allergies Allergy/AdvReac Type Severity Reaction Status Date / Time No Known Allergies Allergy Unverified 10/27/17 19:54 Review of Systems ROS: all other systems reviewed are negative PMFSH Medical History Medical History Depression (Chronic) Thyroid activity decreased (Acute) Asthma (Acute) Neuropathy (Chronic) GERD (gastroesophageal reflux disease) (Acute) Family History Family History Other Family history normal Social History Social History Substance History: No History of Abuse Second Hand Smoke Exposure: No Smoking Status: Never smoker How Often Do You Have a Drink Containing Alcohol: Monthly or less Recent Travel in [facility] within the Last 8 Weeks: No Recent Out of Country Travel within the Last 8 Weeks: No Exam Narrative Exam Narrative: GENERAL: Well-developed, well-nourished in severe respiratory distress SKIN: Focused skin assessment warm/dry. HEAD: Atraumatic. Normocephalic. EYES: Pupils equal and round. No scleral icterus. No injection or drainage. ENT: No nasal bleeding or discharge. Mucous membranes pink and moist. NECK: Trachea midline. No JVD. CARDIOVASCULAR: Regular rate and rhythm. No murmur appreciated. RESPIRATORY: significant accessory muscle use. diffuse wheezing, quiet. Breath sounds equal bilaterally. GASTROINTESTINAL: Abdomen soft, non-tender, nondistended. Hepatic and splenic margins not palpable. MUSCULOSKELETAL: No obvious deformities. No clubbing. No cyanosis. No edema. No TTP to calves NEUROLOGICAL: Awake and alert. No obvious cranial nerve deficits. Motor grossly within normal limits. Normal speech. PSYCHIATRIC: Appropriate mood and affect; insight and judgment normal. Course Initial Documented Vital Signs Temperature 98.7 F 10/27/17 19:55 Pulse Rate 99 H 10/27/17 19:55 Respiratory Rate 26 H 10/27/17 19:55 Blood Pressure 141/66 H 10/27/17 19:55 Pulse Oximetry 96 10/27/17 19:55 Last Documented Vital Signs Temperature 98.0 F 10/28/17 11:08 Pulse Rate 67 10/28/17 11:08 Respiratory Rate 18 10/28/17 11:08 Blood Pressure 136/64 10/28/17 11:08 Pulse Oximetry 96 10/28/17 11:08 Critical Care Time Critical Care Time: Yes Total Critical Care Time: 45 Attestation: Aggregate critical care time was 45 minutes. Time to perform other separately billable procedures was not included in the critical care time. My time did not include minutes spent treating any other patients simultaneously or on activities that did not directly contribute to the patient's treatment. The services I provided to this patient were to treat and/or prevent clinically significant deterioration that could result in: , respiratory arrest I provided critical care services requiring my management, as noted below: Chart data review, documentation time, medication orders and management, vital sign assessments/reviewing monitor data, ordering and reviewing lab tests, ordering and interpreting/reviewing x-rays and diagnostic studies, care of the patient and discussion of the patient with the admitting physicians. Multiple ABGs performed. Respiratory therapy for BiPAP. Medical Decision Making MDM Narrative Medical decision making narrative: 47-year-old female with history of asthma presents emergency department an acute asthma attack. Patient was given 125 mg Solu-Medrol, DuoNeb, albuterol 2 without relief. Upon arrival patient speaking in 1-2 words at a time, severe wheezing with diminished breath sounds diffusely. Respiratory therapy was immediately called for administration of BiPAP. Pt has significant improvement in her symptoms. ABG performed after placement of BiPAP and administration of O2. Magnesium 1g, terbutaline 0.25mg, albuterol neb x1 administered. EKG sinus tachycardia rate 104 without stemi changes. CXR tiny effusion and mild parenchymal consolidations at bases, likely secondary to atelectasis from asthma attack. Labs otherwise stable. Pt was weened on BiPAP and insisted RT remove device. Pt was monitored throughout the visit. I had a discussion regarding her staying for an observation period as she has history of asthma attacks requiring intubation. She agreed, seemingly reluctant, but agreeable. I spoke with Dr. Villegas who agreed to admit this patient. Differential Diagnosis Differential Diagnosis: Asthma attack, COPD exacerbation, status asthmaticus Lab Data Result diagrams: 10/28/17 07:36 10/28/17 07:36 Lab Results 10/27/17 10/27/17 10/27/17 Range/Units 20:20 20:20 20:20 WBC 9.8 (4.0-11.0) th/mm3 RBC 4.31 (4.00-5.30) mil/mm3 Hgb 12.7 (11.6-15.3) gm/dL Hct 39.7 (35.0-46.0) % MCV 92.1 (80.0-100.0) fL MCH 29.5 (27.0-34.0) pg MCHC 32.0 (32.0-36.0) % RDW 14.2 (11.6-17.2) % Plt Count 269 (150-450) th/mm3 MPV 8.5 (7.0-11.0) fL Neut % (Auto) 59.3 (16.0-70.0) % Lymph % (Auto) 31.5 (9.0-44.0) % Winston % (Auto) 6.2 (0.0-8.0) % Eos % (Auto) 2.2 (0.0-4.0) % Baso % (Auto) 0.8 (0.0-2.0) % Neut # (Auto) 5.8 (1.8-7.7) th/mm3 Lymph # (Auto) 3.1 (1.0-4.8) th/mm3 Winston # (Auto) 0.6 (0.0-0.9) th/mm3 Eos # (Auto) 0.2 (0.0-0.4) th/mm3 Baso # (Auto) 0.1 (0.0-0.2) th/mm3 WBC Differential . Differential Comment Auto diff final PT (9.8-11.6) sec INR Ratio APTT (24.3-30.1) sec Puncture Site Patient Temperature O2 Saturation (90-100) % ABG pH (7.380-7.420) ABG pCO2 (38-42) mmHg ABG pO2 (61-120) mmHg ABG HCO3 (22-26) mmol/L ABG O2 Content (12.0-20.0) Vol % ABG Base Excess (-2-2) mmol/L ABG Methemoglobin (0-2) % Tristan Test Hemoglobin (12.0-16.0) G/DL Carboxyhemoglobin (0-4) % O2 Delivery Device Vent Setting Inspired O2 % Critical Value Sodium 138 (136-145) meq/L Potassium 4.1 (3.5-5.1) meq/L Chloride 108 H (98-107) meq/L Carbon Dioxide 17.8 L (21.0-32.0) meq/L Anion Gap 12 (5-15) meq/L BUN 15 (7-18) mg/dL Creatinine 0.85 (0.50-1.00) mg/dL Estimated GFR 72 L (>89) mL/min Random Glucose 90 (74-106) mg/dL Calcium 9.1 (8.5-10.1) mg/dL Magnesium 2.1 (1.5-2.5) mg/dL Total Bilirubin 0.2 (0.2-1.0) mg/dL AST 25 (15-37) U/L ALT 23 (10-53) U/L Alkaline Phosphatase 89 (45-117) U/L Total Protein 7.6 (6.4-8.2) g/dL Albumin 3.6 (3.4-5.0) g/dL 10/27/17 10/28/17 10/28/17 Range/Units 20:43 01:30 07:36 WBC 9.0 (4.0-11.0) th/mm3 RBC 4.20 (4.00-5.30) mil/mm3 Hgb 12.6 (11.6-15.3) gm/dL Hct 38.1 (35.0-46.0) % MCV 90.8 (80.0-100.0) fL MCH 29.9 (27.0-34.0) pg MCHC 32.9 (32.0-36.0) % RDW 14.2 (11.6-17.2) % Plt Count 269 (150-450) th/mm3 MPV 8.3 (7.0-11.0) fL Neut % (Auto) 92.2 H (16.0-70.0) % Lymph % (Auto) 7.1 L (9.0-44.0) % Winston % (Auto) 0.7 (0.0-8.0) % Eos % (Auto) 0.0 (0.0-4.0) % Baso % (Auto) 0.0 (0.0-2.0) % Neut # (Auto) 8.3 H (1.8-7.7) th/mm3 Lymph # (Auto) 0.6 L (1.0-4.8) th/mm3 Winston # (Auto) 0.1 (0.0-0.9) th/mm3 Eos # (Auto) 0.0 (0.0-0.4) th/mm3 Baso # (Auto) 0.0 (0.0-0.2) th/mm3 WBC Differential . Differential Comment Auto diff final PT 9.8 (9.8-11.6) sec INR 1.0 Ratio APTT 22.6 L (24.3-30.1) sec Puncture Site Right radial Patient Temperature 98.6 O2 Saturation 98 (90-100) % ABG pH 7.52 H* (7.380-7.420) ABG pCO2 24 L* (38-42) mmHg ABG pO2 201 H (61-120) mmHg ABG HCO3 20 L (22-26) mmol/L ABG O2 Content 17.5 (12.0-20.0) Vol % ABG Base Excess -2.7 L (-2-2) mmol/L ABG Methemoglobin 0.7 (0-2) % Tristan Test Present Hemoglobin 12.4 (12.0-16.0) G/DL Carboxyhemoglobin 0.8 (0-4) % O2 Delivery Device Bipap Vent Setting Ipap 15 epap 5 ps10 Inspired O2 50 % Critical Value Yes Sodium (136-145) meq/L Potassium (3.5-5.1) meq/L Chloride (98-107) meq/L Carbon Dioxide (21.0-32.0) meq/L Anion Gap (5-15) meq/L BUN (7-18) mg/dL Creatinine (0.50-1.00) mg/dL Estimated GFR (>89) mL/min Random Glucose (74-106) mg/dL Calcium (8.5-10.1) mg/dL Magnesium (1.5-2.5) mg/dL Total Bilirubin (0.2-1.0) mg/dL AST (15-37) U/L ALT (10-53) U/L Alkaline Phosphatase (45-117) U/L Total Protein (6.4-8.2) g/dL Albumin (3.4-5.0) g/dL 10/28/17 Range/Units 07:36 WBC (4.0-11.0) th/mm3 RBC (4.00-5.30) mil/mm3 Hgb (11.6-15.3) gm/dL Hct (35.0-46.0) % MCV (80.0-100.0) fL MCH (27.0-34.0) pg MCHC (32.0-36.0) % RDW (11.6-17.2) % Plt Count (150-450) th/mm3 MPV (7.0-11.0) fL Neut % (Auto) (16.0-70.0) % Lymph % (Auto) (9.0-44.0) % Winston % (Auto) (0.0-8.0) % Eos % (Auto) (0.0-4.0) % Baso % (Auto) (0.0-2.0) % Neut # (Auto) (1.8-7.7) th/mm3 Lymph # (Auto) (1.0-4.8) th/mm3 Winston # (Auto) (0.0-0.9) th/mm3 Eos # (Auto) (0.0-0.4) th/mm3 Baso # (Auto) (0.0-0.2) th/mm3 WBC Differential Differential Comment PT (9.8-11.6) sec INR Ratio APTT (24.3-30.1) sec Puncture Site Patient Temperature O2 Saturation (90-100) % ABG pH (7.380-7.420) ABG pCO2 (38-42) mmHg ABG pO2 (61-120) mmHg ABG HCO3 (22-26) mmol/L ABG O2 Content (12.0-20.0) Vol % ABG Base Excess (-2-2) mmol/L ABG Methemoglobin (0-2) % Tristan Test Hemoglobin (12.0-16.0) G/DL Carboxyhemoglobin (0-4) % O2 Delivery Device Vent Setting Inspired O2 % Critical Value Sodium 140 (136-145) meq/L Potassium 4.2 (3.5-5.1) meq/L Chloride 107 (98-107) meq/L Carbon Dioxide 22.9 (21.0-32.0) meq/L Anion Gap 10 (5-15) meq/L BUN 15 (7-18) mg/dL Creatinine 0.83 (0.50-1.00) mg/dL Estimated GFR 74 L (>89) mL/min Random Glucose 141 H (74-106) mg/dL Calcium 9.3 (8.5-10.1) mg/dL Magnesium (1.5-2.5) mg/dL Total Bilirubin (0.2-1.0) mg/dL AST (15-37) U/L ALT (10-53) U/L Alkaline Phosphatase (45-117) U/L Total Protein (6.4-8.2) g/dL Albumin (3.4-5.0) g/dL Imaging Data Radiologist's impression: Chest X-Ray 10/27/17 20:03 CONCLUSION: Tiny effusions and mild parenchymal consolidation at each base. Discharge Plan Discharge Disposition Patient Disposition: 30 Still Patient Discharge Condition Condition: Stable Discharge Details Diagnosis: Asthma exacerbation Physicians Team ED Provider: Amandeep Cordon ED Midlevel Provider: Lizabeth Schreiber Primary Care Provider: Oseas Nielson Attending Provider: Thais Bahena Status ED Status: Left Department Discharge Information Discharge Date/Time: 10/28/17 00:20
--- NOTE | 2017-10-27 21:52 | ECG ---
Date Performed: 10/27/2017 Time Performed: 20:02:31 PTAGE: 47 years EKG: SINUS TACHYCARDIA NONSPECIFIC T-WAVE ABNORMALITY ABNORMAL RHYTHM ECG PREVIOUS TRACING : 02/07/2017 20.15 Since the previous tracing, no significant change noted DOCTOR: Iliana Car Interpretating Date/Time 10/27/2017 21:51:42
[2017-10-27] MEDS ORDERED: Temazepam 15 MG Capsule PO PRN (23:26)
[2017-10-27] MEDS ORDERED: Bisacodyl 10 MG Supp RECTAL PRN (23:26)
--- NOTE | 2017-10-27 23:39 | P.HP ---
History of Present Illness Service: [facility] Primary Care Physician: Oseas Nielson MD History of Present Illness: 47-year-old female with a past medical history significant for asthma, hypothyroidism and neuropathy presents the emergency department for an acute onset asthma exacerbation. The patient reports that at 6:30 AM she became severely short of breath. She took her albuterol and Advair with no relief. She stated that she has a nebulizer at home however she was unable of breath worsened to the point where EMS was called. The patient was placed on BiPAP in the emergency department and was given IV steroids and magnesium at which point her symptoms greatly improved. She denies any associated chest pain. No nausea /vomiting. No cough or congestion. No fever/chills. No lateralizing signs/ symptoms Review of Systems All other systems reviewed negative except as stated in HPI [facility] - History History Provided By: Patient, Call Center Professional / EMT - Medical / Surgical Hx Neg / Unobtainable Surgical History: No Previous Surgery - Medical History Medical History: Medical History (Last Updated 10/27/17 @ 21:22 by Dorys Yang) Depression (Acute) Thyroid activity decreased (Acute) Asthma (Acute) Neuropathy (Acute) GERD (gastroesophageal reflux disease) - Family History Family History: Family History (Last Updated 10/27/17 @ 23:32 by Manju Vilelgas MD) Other Family history normal - Tobacco History Smoking Status: Never smoker - Alcohol History How Often Do You Have a Drink Containing Alcohol: Monthly or less - Substance Use History Substance History: No History of Abuse - Travel History Recent Travel in the [place] Within the Last 8 Weeks: No Recent Travel Out of the Country Within the Last 8 Weeks: No - Immunization History Tetanus Immunization: Unsure Hx Influenza Vaccine This Season: No Medications and Allergies Active Medications: Active Medications Acetaminophen (Tylenol) 650 mg PO Q4H PRN PRN Reason: Temp > 100.4 Al Hydroxide/Mg Hydroxide (Milk Of Magnesia Liq) 30 ml PO Q12H PRN PRN Reason: Mild Constipation Albuterol (Albuterol Neb (Prn)) 2.5 mg NEB Q2HR NEB PRN PRN Reason: SHORTNESS OF BREATH/WHEEZING Bisacodyl (Dulcolax Supp) 10 mg RECTAL DAILY PRN PRN Reason: SEVERE CONSITIPATION Heparin Sodium (Porcine) (Heparin Inj) 5,000 units SQ Q8H BRIT Lactulose (Lactulose Liq) 30 ml PO DAILY PRN PRN Reason: SEVERE CONSITIPATION Levothyroxine Sodium (Synthroid) 50 mcg PO DAILY BRIT Methylprednisolone Sodium Succinate (Solumedrol Inj) 40 mg IV.PUSH Q6H BRIT Non-Formulary Medication (Gabapentin [Gabapentin]) 800 mg PO TID BRIT Non-Formulary Medication (Sertraline [Zoloft]) 100 mg PO DAILY [facility] Non-Formulary Medication (Fluticasone-Salmeterol [Advair Diskus]) 1 inh INHALATION BID BRIT Sennosides (Senokot) 17.2 mg PO Q12H PRN PRN Reason: Moderate Constipation Temazepam (Restoril) 15 mg PO HS PRN PRN Reason: INSOMNIA Allergies Allergy/AdvReac Type Severity Reaction Status Date / Time No Known Allergies Allergy Unverified 10/27/17 19:54 Home Medications Medication Instructions Recorded Confirmed Type albuterol sulfate 0.63 mg INHALATION Q4H PRN 10/27/17 10/27/17 History albuterol sulfate [ProAir HFA] 2 puff INHALATION Q4-6H 10/27/17 10/27/17 History fluticasone-salmeterol [Advair 1 inh INHALATION BID 10/27/17 10/27/17 History Diskus] gabapentin 800 mg PO TID 10/27/17 10/27/17 History levothyroxine 50 mcg PO DAILY 10/27/17 History sertraline [Zoloft] 100 mg PO DAILY 10/27/17 History Exam Vital signs: Vital Signs 10/27/17 19:55 10/27/17 20:10 10/27/17 20:35 Temperature 98.7 F Pulse Rate 99 H 89 Respiratory Rate 26 H 20 Blood Pressure 141/66 H Pulse Oximetry 96 98 98 Intake & Output 10/27/17 10/27/17 10/28/17 06:59 18:59 06:59 Weight 79.379 kg Narrative: Gen.: No acute distress Head: Normocephalic. Atraumatic. EENT: Pupils equal round and reactive to light. Nose without drainage. Airway intact. Throat without injection. Cardiovascular: Regular rate and rhythm. No murmurs, rubs or gallops. Respiratory: Lungs clear to auscultation bilaterally. No wheezes or rhonchi. Abdomen: Soft, nontender, nondistended. No peritoneal signs. Musculoskeletal: No gross deformities. No edema. Skin: No obvious rashes or erythema. Neuro: Sensory and motor grossly intact. Cranial nerves II through XII grossly intact. Psych: Appropriate mood and affect Results - Labs CBC & Chem 7: 10/27/17 20:20 10/27/17 20:20 Labs: Laboratory Results - last 24 hr 10/27/17 10/27/17 10/27/17 20:20 20:20 20:20 WBC 9.8 RBC 4.31 Hgb 12.7 Hct 39.7 MCV 92.1 MCH 29.5 MCHC 32.0 RDW 14.2 Plt Count 269 MPV 8.5 Neut % (Auto) 59.3 Lymph % (Auto) 31.5 Bartholomew % (Auto) 6.2 Eos % (Auto) 2.2 Baso % (Auto) 0.8 Neut # (Auto) 5.8 Lymph # (Auto) 3.1 Bartholomew # (Auto) 0.6 Eos # (Auto) 0.2 Baso # (Auto) 0.1 WBC Differential . Differential Comment Auto diff final Puncture Site Patient Temperature O2 Saturation ABG pH ABG pCO2 ABG pO2 ABG HCO3 ABG O2 Content ABG Base Excess ABG Methemoglobin Tristan Test Hemoglobin Carboxyhemoglobin O2 Delivery Device Vent Setting Inspired O2 Critical Value Sodium 138 Potassium 4.1 Chloride 108 H Carbon Dioxide 17.8 L Anion Gap 12 BUN 15 Creatinine 0.85 Estimated GFR 72 L Random Glucose 90 Calcium 9.1 Magnesium 2.1 Total Bilirubin 0.2 AST 25 ALT 23 Alkaline Phosphatase 89 Total Protein 7.6 Albumin 3.6 10/27/17 20:43 WBC RBC Hgb Hct MCV MCH MCHC RDW Plt Count MPV Neut % (Auto) Lymph % (Auto) Bartholomew % (Auto) Eos % (Auto) Baso % (Auto) Neut # (Auto) Lymph # (Auto) Bartholomew # (Auto) Eos # (Auto) Baso # (Auto) WBC Differential Differential Comment Puncture Site Right radial Patient Temperature 98.6 O2 Saturation 98 ABG pH 7.52 H* ABG pCO2 24 L* ABG pO2 201 H ABG HCO3 20 L ABG O2 Content 17.5 ABG Base Excess -2.7 L ABG Methemoglobin 0.7 Tristan Test Present Hemoglobin 12.4 Carboxyhemoglobin 0.8 O2 Delivery Device Bipap Vent Setting Ipap 15 epap 5 ps10 Inspired O2 50 Critical Value Yes Sodium Potassium Chloride Carbon Dioxide Anion Gap BUN Creatinine Estimated GFR Random Glucose Calcium Magnesium Total Bilirubin AST ALT Alkaline Phosphatase Total Protein Albumin - Imaging Impressions Chest X-Ray 10/27/17 20:03 CONCLUSION: Tiny effusions and mild parenchymal consolidation at each base. Caprini VTE Risk Assessment Caprini VTE Risk Assessment: No/Low Risk (score <= 1) Caprini Risk Assessment Model: Point Value = 1 Point Value = 2 Point Value = 3 Point Value = 5 Age 41-60 Minor surgery BMI > 25 kg/m2 Swollen legs Varicose veins or History of unexplained or recurrent spontaneous Oral contraceptives or hormone replacement Sepsis (< 1 month) Serious lung disease, including pneumonia (< 1 month) Abnormal pulmonary function Acute myocardial infarction Congestive heart failure (< 1 month) History of inflammatory bowel disease Medical patient at bed rest Age 61-74 Arthroscopic surgery Major open surgery (> 45 min) Laparoscopic surgery (> 45 min) Malignancy Confined to bed (> 72 hours) Immobilizing plaster cast Central venous access Age >= 75 History of VTE Family history of VTE Factor V Leiden Prothrombin [id number] Lupus anticoagulant Anticardiolipin antibodies Elevated serum homocysteine Heparin-induced thrombocytopenia Other congenital or acquired thrombophilia Stroke (< 1 month) Elective arthroplasty Hip, pelvis, or leg fracture Acute spinal cord injury (< 1 month) Prophylaxis Regimen: Total Risk Factor Score Risk Level Prophylaxis Regimen 0-1 Low Early ambulation 2 Moderate Order ONE of the following: *Sequential Compression Device (SCD) *Heparin 5000 units SQ BID 3-4 Higher Order ONE of the following medications: *Heparin 5000 units SQ TID *Enoxaparin/Lovenox 40 mg SQ daily (WT < 150 kg, CrCl > 30 mL/min) *Enoxaparin/Lovenox 30 mg SQ daily (WT < 150 kg, CrCl > 10-29 mL/min) *Enoxaparin/Lovenox 30 mg SQ BID (WT < 150 kg, CrCl > 30 mL/min) AND/OR *Sequential Compression Device (SCD) 5 or more Highest Order ONE of the following medications: *Heparin 5000 units SQ TID (Preferred with Epidurals) *Enoxaparin/Lovenox 40 mg SQ daily (WT < 150 kg, CrCl > 30 mL/min) *Enoxaparin/Lovenox 30 mg SQ daily (WT < 150 kg, CrCl > 10-29 mL/min) *Enoxaparin/Lovenox 30 mg SQ BID (WT < 150 kg, CrCl > 30 mL/min) AND *Sequential Compression Device (SCD) Assessment and Plan - Plan Assessment/plan: 1. Asthma exacerbation Status post BiPAP, magnesium and terbutaline IV steroids Albuterol nebulizers 2. Hypothyroidism Continue home Synthroid 3. Neuropathy Continue home gabapentin FEN Diet Electrolytes: Monitor and replete as needed
[2017-10-28] MEDS: MethylPREDNISolone Sod Succinate Inj 40 MG/ML Vial IV.PUSH SCH ×2 (00:34→06:19)
[2017-10-28] MEDS: Heparin - SQ 10,000 UNITS/ML Vial SQ SCH ×4 (00:40→21:01)
[2017-10-28] MEDS: Acetaminophen 325 MG Tablet PO PRN ×2 (00:49→11:28)
[2017-10-28 01:50] LABS: Activated Partial Thrombo Time 22.6 sec (24.3-30.1); Prothrombin Time 9.8 sec (9.8-11.6)
[2017-10-28] MEDS: Levothyroxine 50 MCG Tablet PO SCH (06:19)
[2017-10-28 09:37] LABS: Hematocrit 38.1 % (35.0-46.0); Hemoglobin 12.6 gm/dL (11.6-15.3); Lymph # (Auto) 0.6 th/mm3 (1.0-4.8); Lymph % (Auto) 7.1 % (9.0-44.0); Mean Corpuscular HGB Conc 32.9 % (32.0-36.0); Mean Corpuscular Hemoglobin 29.9 pg (27.0-34.0); Mean Corpuscular Volume 90.8 fL (80.0-100.0); Mean Platelet Volume 8.3 fL (7.0-11.0); Mono # (Auto) 0.1 th/mm3 (0.0-0.9); Mono % (Auto) 0.7 % (0.0-8.0); Neut # (Auto) 8.3 th/mm3 (1.8-7.7); Neut % (Auto) 92.2 % (16.0-70.0); Platelet Count 269 th/mm3 (150-450); Red Cell Distribution Width 14.2 % (11.6-17.2)
[2017-10-28 09:58] LABS: Calcium 9.3 mg/dL (8.5-10.1); Carbon Dioxide 22.9 meq/L (21.0-32.0); Potassium 4.2 meq/L (3.5-5.1)
--- NOTE | 2017-10-28 10:55 | P.PN ---
Subjective Interval history: Denies any shortness of breath, no wheezing, no cough. Indicates she slept well. Currently on room air. No fever. No acute changes reported overnight 12 point review of systems completed, negative except as noted above Physical Exam Vital signs: Vital Signs 10/27/17 19:55 10/27/17 20:10 10/27/17 20:35 Temperature 98.7 F Pulse Rate 99 H 89 Respiratory Rate 26 H 20 Blood Pressure 141/66 H Pulse Oximetry 96 98 98 10/27/17 23:30 10/28/17 00:15 10/28/17 00:21 Temperature 98.5 F Pulse Rate 92 H 89 Respiratory Rate 16 17 Blood Pressure 119/61 120/66 Pulse Oximetry 97 97 97 10/28/17 00:30 10/28/17 07:29 Temperature 97.8 F Pulse Rate 84 Respiratory Rate 17 18 Blood Pressure 114/61 Pulse Oximetry 98 Intake & Output 10/27/17 10/28/17 10/28/17 18:59 06:59 18:59 Intake Total 100 / 100 Balance 100 / 100 Weight 79.379 kg Intake: IV 100 / 100 Magnesium Sulfate 1 gm/D5W 100 100 / 100 ml Premix 100 ML @ 100 mls/hr IV.SIG ONCE ONE Rx#:[id number] Other: Weight On Admission 79.379 kg Narrative: GENERAL: Well-nourished, well-developed patient in no apparent distress. SKIN: Warm and dry. HEAD: Atraumatic. Normocephalic. EYES: Pupils equal and round. No scleral icterus. No injection or drainage. ENT: No nasal bleeding or discharge. Mucous membranes pink and moist. NECK: Trachea midline. No JVD. CARDIOVASCULAR: Regular rate and rhythm. RESPIRATORY: No accessory muscle use. Clear to auscultation. Breath sounds equal bilaterally. GASTROINTESTINAL: Abdomen soft, non-tender, nondistended. Hepatic and splenic margins not palpable. MUSCULOSKELETAL: Extremities without clubbing, cyanosis, or edema. No obvious deformities. NEUROLOGICAL: Awake and alert. No obvious cranial nerve deficits. Motor grossly within normal limits. Five out of 5 muscle strength in the arms and legs. Normal speech. PSYCHIATRIC: Appropriate mood and affect; insight and judgment normal. Results - Labs CBC & Chem 7: 10/28/17 07:36 10/28/17 07:36 Laboratory Results - last 24 hr 10/27/17 10/27/17 10/27/17 20:20 20:20 20:20 WBC 9.8 RBC 4.31 Hgb 12.7 Hct 39.7 MCV 92.1 MCH 29.5 MCHC 32.0 RDW 14.2 Plt Count 269 MPV 8.5 Neut % (Auto) 59.3 Lymph % (Auto) 31.5 [place] % (Auto) 6.2 Eos % (Auto) 2.2 Baso % (Auto) 0.8 Neut # (Auto) 5.8 Lymph # (Auto) 3.1 [place] # (Auto) 0.6 Eos # (Auto) 0.2 Baso # (Auto) 0.1 WBC Differential . Differential Comment Auto diff final PT INR APTT Puncture Site Patient Temperature O2 Saturation ABG pH ABG pCO2 ABG pO2 ABG HCO3 ABG O2 Content ABG Base Excess ABG Methemoglobin Tristan Test Hemoglobin Carboxyhemoglobin O2 Delivery Device Vent Setting Inspired O2 Critical Value Sodium 138 Potassium 4.1 Chloride 108 H Carbon Dioxide 17.8 L Anion Gap 12 BUN 15 Creatinine 0.85 Estimated GFR 72 L Random Glucose 90 Calcium 9.1 Magnesium 2.1 Total Bilirubin 0.2 AST 25 ALT 23 Alkaline Phosphatase 89 Total Protein 7.6 Albumin 3.6 10/27/17 10/28/17 10/28/17 20:43 01:30 07:36 WBC 9.0 RBC 4.20 Hgb 12.6 Hct 38.1 MCV 90.8 MCH 29.9 MCHC 32.9 RDW 14.2 Plt Count 269 MPV 8.3 Neut % (Auto) 92.2 H Lymph % (Auto) 7.1 L [place] % (Auto) 0.7 Eos % (Auto) 0.0 Baso % (Auto) 0.0 Neut # (Auto) 8.3 H Lymph # (Auto) 0.6 L [place] # (Auto) 0.1 Eos # (Auto) 0.0 Baso # (Auto) 0.0 WBC Differential . Differential Comment Auto diff final PT 9.8 INR 1.0 APTT 22.6 L Puncture Site Right radial Patient Temperature 98.6 O2 Saturation 98 ABG pH 7.52 H* ABG pCO2 24 L* ABG pO2 201 H ABG HCO3 20 L ABG O2 Content 17.5 ABG Base Excess -2.7 L ABG Methemoglobin 0.7 Tristan Test Present Hemoglobin 12.4 Carboxyhemoglobin 0.8 O2 Delivery Device Bipap Vent Setting Ipap 15 epap 5 ps10 Inspired O2 50 Critical Value Yes Sodium Potassium Chloride Carbon Dioxide Anion Gap BUN Creatinine Estimated GFR Random Glucose Calcium Magnesium Total Bilirubin AST ALT Alkaline Phosphatase Total Protein Albumin 10/28/17 07:36 WBC RBC Hgb Hct MCV MCH MCHC RDW Plt Count MPV Neut % (Auto) Lymph % (Auto) [place] % (Auto) Eos % (Auto) Baso % (Auto) Neut # (Auto) Lymph # (Auto) [place] # (Auto) Eos # (Auto) Baso # (Auto) WBC Differential Differential Comment PT INR APTT Puncture Site Patient Temperature O2 Saturation ABG pH ABG pCO2 ABG pO2 ABG HCO3 ABG O2 Content ABG Base Excess ABG Methemoglobin Tristan Test Hemoglobin Carboxyhemoglobin O2 Delivery Device Vent Setting Inspired O2 Critical Value Sodium 140 Potassium 4.2 Chloride 107 Carbon Dioxide 22.9 Anion Gap 10 BUN 15 Creatinine 0.83 Estimated GFR 74 L Random Glucose 141 H Calcium 9.3 Magnesium Total Bilirubin AST ALT Alkaline Phosphatase Total Protein Albumin - Imaging Impressions Chest X-Ray 10/27/17 20:03 CONCLUSION: Tiny effusions and mild parenchymal consolidation at each base. Assessment and Plan - Assessment (1) Asthma exacerbation Code(s): J45.901 - Unspecified asthma with (acute) exacerbation Status: Acute (2) Depression Code(s): F32.9 - Major depressive disorder, single episode, unspecified Status : Chronic (3) Neuropathy Code(s): G62.9 - Polyneuropathy, unspecified Status: Chronic - Plan Assessment/plan: Asthma exacerbation-Status post BiPAP, magnesium and terbutaline. Symptoms improved -change to PO steroids 20 mg po daily -continue with Albuterol nebulizers Hypothyroidism -Continue home Synthroid Neuropathy -Continue home gabapentin 800 mg po TID Heparin 5000 units subcu 3 times daily for DVT prophylaxis Overall symptoms improved, poss dc later today (1) Asthma exacerbation Qualifiers: Asthma severity: severe (2) Depression Qualifiers: Depression Type: unspecified Qualified Code(s): F32.9 - Major depressive disorder, single episode, unspecified
[2017-10-28] MEDS: Budesonide-Formoterol 160/4.5 MCG 6 GM Inhaler INH SCH ×2 (11:27→21:01)
[2017-10-28] MEDS: Gabapentin 400 MG Capsule PO SCH ×3 (11:28→17:56)
[2017-10-28] MEDS: Sertraline 100 MG Tablet PO SCH (11:28)
[2017-10-28] MEDS ORDERED: ALPRAZolam 0.5 MG Tablet PO PRN (14:21)
[2017-10-28] MEDS ORDERED: Ketorolac Inj 30 MG/ML (IVP) Vial IV.PUSH ONE (15:00)
--- NOTE | 2017-10-28 17:22 | CT ---
EXAM DATE: 10/28/2017 5:12 PM EDT AGE/SEX: 47 years / Female INDICATIONS: Headache CLINICAL DATA: This is the patient's initial encounter. Patient reports that signs and symptoms have been present for 1 day and indicates a pain score of 3/10. MEDICAL/SURGICAL HISTORY: Asthma. Hypothyroidism. neuropathy None. RADIATION DOSE: 35.30 CTDI (mGy) COMPARISON: [facility] [place], MRI BRAIN W & W/O CONTRAST, 07/14/2013. . TECHNIQUE: CT of the head without contrast. Using automated exposure control and adjustment of the mA and/or kV according to patient size, radiation dose was kept as low as reasonably achievable to ob tain optimal diagnostic quality images. DICOM format image data is available electronically for revi ew and comparison. FINDINGS: Cerebrum: The ventricles are normal for age. No evidence of midline shift, mass lesion, hemorrhage or acute infarction. No extraaxial fluid collections are seen. Posterior Fossa: The cerebellum and brainstem are intact. The 4th ventricle is midline. The cerebe llopontine angle is unremarkable. Extracranial: The visualized portion of the orbits is intact. Skull: The calvaria is intact. No evidence of skull fracture. CONCLUSION: Negative noncontrast head CT. . Electronically signed by: Oseas Myers MD 10/28/2017 5:21 PM EDT
[2017-10-29] MEDS: Heparin - SQ 10,000 UNITS/ML Vial SQ SCH (05:21)
[2017-10-29] MEDS: Levothyroxine 50 MCG Tablet PO SCH (05:22)
[2017-10-29 07:50] VITALS: BP 101/60; RESP 16; TEMP 98.3; O2SAT 98
[2017-10-29] MEDS: Sertraline 100 MG Tablet PO SCH (08:20)
[2017-10-29] MEDS: Gabapentin 400 MG Capsule PO SCH (08:20)
[2017-10-29] MEDS: Budesonide-Formoterol 160/4.5 MCG 6 GM Inhaler INH SCH (08:20)
--- NOTE | 2017-10-29 08:45 | P.PN ---
Subjective Interval history: Follow-up for asthma exacerbation. Patient reports feeling much better today. She denies any further wheezing or shortness of breath. Denies any cough. Denies any fevers or chills. She wants to go home. Her O2 sat is stable at 98 % on room air. She states she has nebulizer with duo nebs at home, however needs a refill. Also requesting a refill of her rescue inhaler. She has no other medical complaints at this time. Physical Exam Vital signs: Vital Signs 10/28/17 11:08 10/28/17 16:00 10/28/17 20:00 Temperature 98.0 F 97.9 F 97.8 F Pulse Rate 67 71 71 Respiratory Rate 17 Blood Pressure 136/64 119/61 107/55 L Pulse Oximetry 96 96 92 L 10/28/17 23:31 10/29/17 03:55 10/29/17 07:48 Temperature 98.6 F 97.9 F 98.3 F Pulse Rate 80 68 69 Respiratory Rate 16 Blood Pressure 114/56 L 121/58 L 101/60 Pulse Oximetry 97 96 98 Intake & Output 10/28/17 10/29/17 10/29/17 18:59 06:59 18:59 Other: # Voids 5 Date of Last Bowel Movement 10/28/17 10/28/17 # Bowel Movements 3 Narrative: GENERAL: Well-nourished, well-developed middle-aged female patient in [facility]. SKIN: Warm and dry. No rash. HEENT: Normocephalic. Atraumatic. Pupils equal and round. CARDIOVASCULAR: Regular rate and rhythm. No murmur appreciated. RESPIRATORY: No accessory muscle use. Clear to auscultation. Breath sounds equal bilaterally. GASTROINTESTINAL: Abdomen soft, non-tender, nondistended. Normoactive bowel sounds x4. MUSCULOSKELETAL: No obvious deformities. Extremities without clubbing, cyanosis , or edema. NEUROLOGICAL: Awake and alert. No obvious cranial nerve deficits. Moving all extremities spontaneously. Normal speech. PSYCHIATRIC: Appropriate mood and affect; insight and judgment normal. Results - Labs CBC & Chem 7: 10/28/17 07:36 10/28/17 07:36 Laboratory Results - last 24 hr 10/28/17 10/28/17 07:36 07:36 WBC 9.0 RBC 4.20 Hgb 12.6 Hct 38.1 MCV 90.8 MCH 29.9 MCHC 32.9 RDW 14.2 Plt Count 269 MPV 8.3 Neut % (Auto) 92.2 H Lymph % (Auto) 7.1 L [place] % (Auto) 0.7 Eos % (Auto) 0.0 Baso % (Auto) 0.0 Neut # (Auto) 8.3 H Lymph # (Auto) 0.6 L [place] # (Auto) 0.1 Eos # (Auto) 0.0 Baso # (Auto) 0.0 WBC Differential . Differential Comment Auto diff final Sodium 140 Potassium 4.2 Chloride 107 Carbon Dioxide 22.9 Anion Gap 10 BUN 15 Creatinine 0.83 Estimated GFR 74 L Random Glucose 141 H Calcium 9.3 - Imaging Impressions Head CT 10/28/17 00:00 CONCLUSION: Negative noncontrast head CT. . Assessment and Plan - Assessment (1) Asthma exacerbation Code(s): J45.901 - Unspecified asthma with (acute) exacerbation Status: Acute (2) Depression Code(s): F32.9 - Major depressive disorder, single episode, unspecified Status : Chronic (3) Neuropathy Code(s): G62.9 - Polyneuropathy, unspecified Status: Chronic - Plan 47-year-old female with history of asthma, hypothyroidism, neuropathy, presents with acute onset of severe shortness of breath Acute Respiratory Failure secondary to Asthma exacerbation: Status post BiPAP, magnesium and terbutaline in the ED. -continued steroids, change to prednisone 20 mg po daily -continue with Albuterol nebulizers -symptoms much improved, no further wheezing and O2 sat 98% on room air, stable for discharge Hypothyroidism -Continue home Synthroid Neuropathy -Continue home gabapentin 800 mg po TID Heparin sq for DVT prophylaxis Discharge Planning: Discharge patient to home Condition on discharge: Stable Regular Diet as tolerated Ad Tia activity Rx written: prednisone 20mg daily, albuterol nebs, albuterol inhaler Follow-up with primary care physician within 1 week (1) Asthma exacerbation Qualifiers: Asthma severity: severe Asthma persistence: unspecified Qualified Code(s): J45.901 - Unspecified asthma with (acute) exacerbation (2) Depression Qualifiers: Depression Type: unspecified Qualified Code(s): F32.9 - Major depressive disorder, single episode, unspecified
[2017-10-29] MEDS ORDERED: predniSONE 20 MG Tablet PO SCH (09:00)
[2017-10-29 09:55] VITALS: PULSE 58
== END 2017-10-29 10:44 | disposition home or self-care (01) ==
LOC: NEPFCDU 19:47 → NEPC 19:47 → NEDA 19:47 → NEPFCDU 10-28 00:09
PROVIDERS: ADMIT Hospitalist; ATTEND Hospitalist

== ENCOUNTER 2017-12-25 17:51 | Inpatient (IN) ==
[2017-12-25] MEDS ORDERED: Mag Sulf 1 gm/100 ml Premix 100 ML IV.SIG ONE (18:00)
[2017-12-25] MEDS ORDERED: RESP: Racemic Epinephrine 2.25% 0.5 ML Neb NEB ONE (18:00)
[2017-12-25] MEDS ORDERED: MethylPREDNISolone Sod Succinate Inj 125 MG/2 ML Vial IV.PUSH ONE (18:00)
[2017-12-25] MEDS ORDERED: Sod Chloride 0.9% Inj 1,000 ML IV.SIG SCH (18:15)
--- NOTE | 2017-12-25 18:31 | ED ---
HPI General Chief Complaint: Asthma Stated Complaint: Shortness of breath Time Seen by Provider: 12/25/17 18:00 Source: patient Mode of arrival: EMS Limitations: no limitations History of Present Illness HPI Narrative: The patient is 47 years old and has asthma. She arrives to the ER in respiratory distress. EMS gave 3 rounds of albuterol +125 mg of Solu- Medrol. The patient states the symptoms started suddenly about an hour prior to ER arrival. She reports having been intubated 4 times previously. She reports steroid use within the past month. She has had no coughing or fever or other a constitutional symptom that patient believes might be related to today' s episode. No history of smoking. MD complaint: Reports "asthma attack" Onset (ago): hour(s) (1) Severity: severe Context: Reports none known Related Data Home Medications Medication Instructions Recorded Confirmed gabapentin 800 mg PO TID 10/27/17 12/25/17 levothyroxine 25 mcg PO DAILY 10/27/17 12/25/17 sertraline [Zoloft] 50 mg PO DAILY 10/27/17 12/25/17 alprazolam 0.5 mg PO BID 12/25/17 12/25/17 atorvastatin 20 mg PO DAILY 12/25/17 12/25/17 montelukast 5 mg PO QPM 12/25/17 12/25/17 pantoprazole 40 mg PO DAILY 12/25/17 12/25/17 trazodone 25 mg PO DAILY 12/25/17 12/25/17 Previous Rx's Medication Instructions Recorded albuterol sulfate 2.5 mg NEB Q4HR NEB PRN #180 ml 10/29/17 albuterol sulfate [ProAir HFA] 2 puff INHALATION Q4-6H PRN #1 10/29/17 inhaler Allergies Allergy/AdvReac Type Severity Reaction Status Date / Time No Known Allergies Allergy Verified 11/26/17 11:38 Review of Systems ROS Unobtainable ROS Unobtainable: unobtainable due to endotracheal tube PMFSH Family History Family History Other Family history normal Social History Social History Substance History: No History of Abuse Second Hand Smoke Exposure: No Smoking Status: Former smoker How Often Do You Have a Drink Containing Alcohol: 2 to 4 times a month Recent Travel in [facility] within the Last 8 Weeks: No Recent Out of Country Travel within the Last 8 Weeks: No Immunization History Tetanus Immunization: <5 Years Exam Narrative Exam Narrative: GENERAL: 47-year-old female moderate to severe respiratory distress, speaks to her 3 word sentences SKIN: Focused skin assessment warm/dry. HEAD: Atraumatic. Normocephalic. EYES: Pupils equal and round. No scleral icterus. No injection or drainage. ENT: No nasal bleeding or discharge. Mucous membranes pink and moist. NECK: Trachea midline. No JVD. CARDIOVASCULAR: Heart rate approximately 120. Regular rhythm. RESPIRATORY: Wheezing present. Dyspnea present. GASTROINTESTINAL: Abdomen soft, non-tender, nondistended. Hepatic and splenic margins not palpable. MUSCULOSKELETAL: No obvious deformities. No clubbing. No cyanosis. No edema. NEUROLOGICAL: Awake and alert. No obvious cranial nerve deficits. Motor grossly within normal limits. Normal speech. PSYCHIATRIC: Appropriate mood and affect; insight and judgment normal. Course Consultations Consultation #1: Dr. Lees will admit Time: 19:27 Initial Documented Vital Signs Pulse Rate 118 H 12/25/17 18:00 Respiratory Rate 41 H 12/25/17 18:00 Blood Pressure 211/91 H 12/25/17 18:00 Pulse Oximetry 99 12/25/17 18:00 Last Documented Vital Signs Temperature 97.5 F L 12/26/17 03:41 Pulse Rate 74 12/26/17 07:15 Respiratory Rate 16 12/26/17 07:15 Blood Pressure 109/54 L 12/26/17 03:41 Pulse Oximetry 95 12/26/17 07:15 Critical Care Time Critical Care Time: Yes Total Critical Care Time: 30 Attestation: Aggregate critical care time was 30 minutes. Time to perform other separately billable procedures was not included in the critical care time. My time did not include minutes spent treating any other patients simultaneously or on activities that did not directly contribute to the patient's treatment. The services I provided to this patient were to treat and/or prevent clinically significant deterioration that could result in: Hypoxia, respiratory arrest I provided critical care services requiring my management, as noted below: Chart data review, documentation time, medication orders and management, vital sign assessments/reviewing monitor data, ordering and reviewing lab tests, ordering and interpreting/reviewing x-rays and diagnostic studies, care of the patient and discussion of the patient with the admitting physicians. Sign Out Sign Out Data: Patient Sign Out occurred on 12/25/17 at 19:21. Patient's care was discussed, and care was transferred from Sarmad Matthews MD to Arlen Suárez. Sign Out Comment: Patient has severe asthma. Market improvement achieved with epinephrine nebulized. Reassess with the plan for admission due to asthma exacerbation. BiPAP deferred secondary to epinephrine efficacy. Last updated by Sarmad Matthews MD at 12/25/17 19:02 Post-Handoff Eval: This patient was signed out to me at 7 PM pending her laboratory workup. The patient came in in extremis with an asthma attack. She is reportedly markedly improved. The patient states that she feels much better. On exam, she now has good air movement throughout. Labs and chest x-ray have been reviewed. Chest x-ray shows a left lower lobe infiltrate. Rocephin and Zithromax have been ordered. Magnesium has also been added to her regimen. The patient is agreeable to admission to the hospital. Medical Decision Making MDM Narrative Medical decision making narrative: The patient is 47 years old and arrives to the ER in severe respiratory distress. She had already received 3 rounds of albuterol and 125 mg of Solu-Medrol given by EMS. The heart rate was 120 in the ED with a respiratory rate of approximately 30-40. Nebulized epinephrine added on as well as magnesium. The case discussed with oncoming provider at 7 PM with a plan to reassess patient and admit. Patient has used BiPAP in the past and after nebulized epinephrine improved sufficiently and stated she would prefer to avoid BiPAP. Medical Screen Exam Complete: Yes Emergency Medical Condition: Yes Lab Data Result diagrams: 12/26/17 06:53 12/25/17 18:20 Lab Results 12/25/17 12/25/17 12/26/17 Range/Units 18:20 18:20 06:53 WBC 11.3 H 14.0 H (4.0-11.0) th/mm3 RBC 4.28 3.99 L (4.00-5.30) mil/mm3 Hgb 12.8 11.9 (11.6-15.3) gm/dL Hct 38.7 36.4 (35.0-46.0) % MCV 90.4 91.2 (80.0-100.0) fL MCH 30.0 29.8 (27.0-34.0) pg MCHC 33.2 32.7 (32.0-36.0) % RDW 13.8 14.0 (11.6-17.2) % Plt Count 316 269 (150-450) th/mm3 MPV 8.3 8.0 (7.0-11.0) fL Neut % (Auto) 56.5 92.1 H (16.0-70.0) % Lymph % (Auto) 32.4 6.5 L (9.0-44.0) % [place] % (Auto) 7.2 1.2 (0.0-8.0) % Eos % (Auto) 2.7 0.0 (0.0-4.0) % Baso % (Auto) 1.2 0.2 (0.0-2.0) % Neut # (Auto) 6.4 12.9 H (1.8-7.7) th/mm3 Lymph # (Auto) 3.7 0.9 L (1.0-4.8) th/mm3 [place] # (Auto) 0.8 0.2 (0.0-0.9) th/mm3 Eos # (Auto) 0.3 0.0 (0.0-0.4) th/mm3 Baso # (Auto) 0.1 0.0 (0.0-0.2) th/mm3 WBC Differential . . Differential Comment Auto diff final Auto diff final Sodium 142 (136-145) meq/L Potassium 3.0 L (3.5-5.1) meq/L Chloride 109 H (98-107) meq/L Carbon Dioxide 20.3 L (21.0-32.0) meq/L Anion Gap 13 (5-15) meq/L BUN 11 (7-18) mg/dL Creatinine 0.88 (0.50-1.00) mg/dL Estimated GFR 69 L (>89) mL/min Random Glucose 82 (74-106) mg/dL Calcium 8.9 (8.5-10.1) mg/dL Imaging Data Radiologist's impression: Chest X-Ray 12/25/17 18:00 CONCLUSION: New mild streaky opacity in the left lung base of concern for possible early pneumonia. Discharge Plan Discharge Disposition Patient Disposition: 30 Still Patient Discharge Details Diagnosis: Acute respiratory distress, Acute asthma exacerbation, Pneumonia Physicians Team ED Provider: Arlen Suárez Primary Care Provider: UNKNOWN, Attending Provider: Susana Morgan Status ED Status: Left Department Discharge Information Discharge Date/Time: 12/25/17 21:19
[2017-12-25 18:35] LABS: Baso # (Auto) 0.1 th/mm3 (0.0-0.2); Baso % (Auto) 1.2 % (0.0-2.0); Eos # (Auto) 0.3 th/mm3 (0.0-0.4); Eos % (Auto) 2.7 % (0.0-4.0); Hematocrit 38.7 % (35.0-46.0); Hemoglobin 12.8 gm/dL (11.6-15.3); Lymph # (Auto) 3.7 th/mm3 (1.0-4.8); Lymph % (Auto) 32.4 % (9.0-44.0); Mean Corpuscular HGB Conc 33.2 % (32.0-36.0); Mean Corpuscular Volume 90.4 fL (80.0-100.0); Mean Platelet Volume 8.3 fL (7.0-11.0); Mono # (Auto) 0.8 th/mm3 (0.0-0.9); Mono % (Auto) 7.2 % (0.0-8.0); Neut # (Auto) 6.4 th/mm3 (1.8-7.7); Neut % (Auto) 56.5 % (16.0-70.0); Platelet Count 316 th/mm3 (150-450); Red Blood Count 4.28 mil/mm3 (4.00-5.30); Red Cell Distribution Width 13.8 % (11.6-17.2); White Blood Count 11.3 th/mm3 (4.0-11.0)
[2017-12-25 18:49] LABS: Calcium 8.9 mg/dL (8.5-10.1); Carbon Dioxide 20.3 meq/L (21.0-32.0)
--- NOTE | 2017-12-25 18:58 | XR ---
EXAM DATE: 12/25/2017 6:00 PM EDT AGE/SEX: 47 years / Female INDICATIONS: Shortness of breath suddenly today. CLINICAL DATA: This is the patient's initial encounter. Patient reports that signs and symptoms have been present for 1 day and indicates a pain score of 0/10. MEDICAL/SURGICAL HISTORY: . Asthma. Hypothyroidism. Neuropathy None. COMPARISON: C, CHEST 1V SINGLE AP, 10/27/2017. . FINDINGS: A single AP erect portable view of the chest was obtained and demonstrates new mild streaky opacity a t the left lung base. The right lung is clear. The heart size remains within normal limits and there is no definite pleural effusion. The bony thorax is intact. CONCLUSION: New mild streaky opacity in the left lung base of concern for possible early pneumonia. Electronically signed by: Jelani Hernandez MD 12/25/2017 6:57 PM EDT
[2017-12-25] MEDS ORDERED: Azithromycin Inj 500 MG in Sodium Chlor 0.9% Inj 250 ML IV.SIG ONE (19:01)
[2017-12-25] MEDS ORDERED: Magnesium Sulfate Inj 2 GM in Sodium Chlor 0.9% Inj 96 ML IV.SIG ONE (19:01)
[2017-12-25] MEDS ORDERED: Bisacodyl 10 MG Supp RECTAL PRN (19:28)
--- NOTE | 2017-12-25 19:42 | P.HPIM ---
History of Present Illness Primary Care Physician: UNKNOWN History of Present Illness: This is a 47-year-old female with a PMH of Asthma who was brought to the ER by EMS secondary to severe SOB starting earlier today. Pt reports SOB at baseline due to severe Asthma, and has had multiple admissions in the past requiring intubation. Today, noted symptoms worse than usual, no relief after using home Neb/MDI. S/p Solu-Medrol and DuoNeb x3 by EMS w/ minimal improvement initially. Denies fever, chills, cough or sick contacts. On arrival, BP 115/58 , HR 96, O2 sat 96% on 2L NC. K+ 3.0. GFR 69. WBC 11.3. CXR with mild streaky opacity left lung base concerning for early pneumonia. S/p additional treatment w/ Mg and Epi in ER w/ improvement. - Diagnosis (1) Asthma (2) PNA (pneumonia) (3) Hypokalemia (4) Dehydration Review of Systems PAST FAMILY HISTORY: Reviewed. 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 - Medical History Medical History: Medical History (Last Reviewed 12/25/17 @ 17:59 by Trupti Shah RN) GERD (gastroesophageal reflux disease) (Acute) Depression (Chronic) Thyroid activity decreased (Acute) Asthma (Acute) Neuropathy (Chronic) - Surgical History Surgical History: Surgical History (Last Reviewed 12/25/17 @ 17:59 by Trupti Shah RN) No history of previous surgery - Family History Family History: Family History (Last Updated 10/27/17 @ 23:32 by Manju Villegas MD) Other Family history normal - Tobacco History Second Hand Smoke Exposure: No Smoking Status: Former smoker - Alcohol History How Often Do You Have a Drink Containing Alcohol: Monthly or less - Substance Use History Substance History: No History of Abuse - Travel History Recent Travel in the [place] Within the Last 8 Weeks: No Recent Travel Out of the Country Within the Last 8 Weeks: No - Immunization History Tetanus Immunization: <5 Years Medications and Allergies Active Medications: Active Medications Acetaminophen (Tylenol) 650 mg PO Q4H PRN PRN Reason: Temp > 100.4 Al Hydroxide/Mg Hydroxide (Milk Of Magnesia Liq) 30 ml PO Q12H PRN PRN Reason: Mild Constipation Albuterol (Albuterol Neb (Prn)) 2.5 mg NEB Q2HR NEB PRN PRN Reason: SOB/WHEEZING Albuterol (Albuterol Neb (Nathan)) 2.5 mg NEB Q4HR WHILE AWAKE NEB NATHAN Bisacodyl (Dulcolax Supp) 10 mg RECTAL DAILY PRN PRN Reason: SEVERE CONSITIPATION Budesonide/Formoterol Fumarate (Symbicort 160/4.5 Mcg Inh) 2 puff INH BID NATHAN Guaifenesin (Mucinex Er) 600 mg PO BID NATHAN Sodium Chloride (Ns Inj) 1,000 mls @ 0 mls/hr IV.SIG BOLUS NATHAN Magnesium Sulfate 2 gm/ Sodium (Chloride) 100 mls @ 50 mls/hr IV.SIG ONCE ONE Stop: 12/25/17 21:00 Lactulose (Lactulose Liq) 30 ml PO DAILY PRN PRN Reason: SEVERE CONSITIPATION Methylprednisolone Sodium Succinate (Solumedrol Inj) 40 mg IV.PUSH Q6H NATHAN Ondansetron HCl (Zofran Inj) 4 mg IV.PUSH Q6H PRN PRN Reason: NAUSEA OR VOMITING Senna/Docusate Sodium ([place]-Colace) 1 tab PO BID [facility] Sennosides (Senokot) 17.2 mg PO Q12H PRN PRN Reason: Moderate Constipation Sodium Chloride (Ns Flush) 2 ml IV.FLUSH PRN PRN PRN Reason: FLUSH AFTER USING IV ACCESS Allergies Allergy/AdvReac Type Severity Reaction Status Date / Time No Known Allergies Allergy Verified 11/26/17 11:38 Home Medications Medication Instructions Recorded Confirmed Type gabapentin 800 mg PO TID 10/27/17 12/25/17 History levothyroxine 25 mcg PO DAILY 10/27/17 12/25/17 History sertraline [Zoloft] 50 mg PO DAILY 10/27/17 12/25/17 History alprazolam 0.5 mg PO BID 12/25/17 12/25/17 History atorvastatin 20 mg PO DAILY 12/25/17 12/25/17 History montelukast 5 mg PO QPM 12/25/17 12/25/17 History pantoprazole 40 mg PO DAILY 12/25/17 12/25/17 History trazodone 25 mg PO DAILY 12/25/17 12/25/17 History Exam Vital signs: Vital Signs 12/25/17 18:00 12/25/17 18:21 12/25/17 18:33 Pulse Rate 118 H 96 H 101 H Respiratory Rate 41 H 28 H 21 Blood Pressure 211/91 H 115/58 L Pulse Oximetry 99 96 96 12/25/17 18:34 12/25/17 18:35 Pulse Rate 101 H 101 H Respiratory Rate 15 15 Blood Pressure Pulse Oximetry Intake & Output 12/25/17 12/25/17 12/26/17 06:59 18:59 06:59 Intake Total 100 / 100 Balance 100 / 100 Weight 90.718 kg Intake: IV 100 / 100 Magnesium Sulfate 1 gm/D5W 100 100 / 100 ml Premix 100 ML @ 100 mls/hr IV.SIG ONCE ONE Rx#:[id number] Narrative: PE: GENERAL: Pleasant middle-aged white female in no acute distress. SKIN: Focused skin assessment warm and dry. HEENT: PERRLA, EOMI. No scleral icterus or conjunctival pallor. No lid lag or facial droop. CARDIOVASCULAR: Regular rate and rhythm. No obvious murmurs to auscultation. No chest tenderness to palpation. RESPIRATORY: No obvious rhonchi. Occasional wheezing. Clear to auscultation. Breath sounds equal bilaterally. GASTROINTESTINAL: Abdomen soft, non-tender, nondistended. BS normal. MUSCULOSKELETAL: Extremities without clubbing, cyanosis, or edema. No obvious deformities. NEUROLOGICAL: Awake, alert and oriented x4. No focal neurologic deficits. Moving both upper and lower extremities spontaneously. PSYCHIATRIC: Appropriate mood and affect. Insight and judgment normal. Results - Labs CBC & Chem 7: 12/25/17 18:20 12/25/17 18:20 Labs: Short CBC 12/25/17 Range/Units 18:20 WBC 11.3 H (4.0-11.0) th/mm3 Hgb 12.8 (11.6-15.3) gm/dL Hct 38.7 (35.0-46.0) % Plt Count 316 (150-450) th/mm3 BMP 12/25/17 18:20 Sodium 142 Potassium 3.0 L Chloride 109 H Carbon Dioxide 20.3 L BUN 11 Creatinine 0.88 Calcium 8.9 - Imaging Impressions Chest X-Ray 12/25/17 18:00 CONCLUSION: New mild streaky opacity in the left lung base of concern for possible early pneumonia. Caprini VTE Risk Assessment Caprini VTE Risk Assessment: No/Low Risk (score <= 1) Caprini Risk Assessment Model: Point Value = 1 Point Value = 2 Point Value = 3 Point Value = 5 Age 41-60 Minor surgery BMI > 25 kg/m2 Swollen legs Varicose veins or History of unexplained or recurrent spontaneous Oral contraceptives or hormone replacement Sepsis (< 1 month) Serious lung disease, including pneumonia (< 1 month) Abnormal pulmonary function Acute myocardial infarction Congestive heart failure (< 1 month) History of inflammatory bowel disease Medical patient at bed rest Age 61-74 Arthroscopic surgery Major open surgery (> 45 min) Laparoscopic surgery (> 45 min) Malignancy Confined to bed (> 72 hours) Immobilizing plaster cast Central venous access Age >= 75 History of VTE Family history of VTE Factor V Leiden Prothrombin [id number] Lupus anticoagulant Anticardiolipin antibodies Elevated serum homocysteine Heparin-induced thrombocytopenia Other congenital or acquired thrombophilia Stroke (< 1 month) Elective arthroplasty Hip, pelvis, or leg fracture Acute spinal cord injury (< 1 month) Prophylaxis Regimen: Total Risk Factor Score Risk Level Prophylaxis Regimen 0-1 Low Early ambulation 2 Moderate Order ONE of the following: *Sequential Compression Device (SCD) *Heparin 5000 units SQ BID 3-4 Higher Order ONE of the following medications: *Heparin 5000 units SQ TID *Enoxaparin/Lovenox 40 mg SQ daily (WT < 150 kg, CrCl > 30 mL/min) *Enoxaparin/Lovenox 30 mg SQ daily (WT < 150 kg, CrCl > 10-29 mL/min) *Enoxaparin/Lovenox 30 mg SQ BID (WT < 150 kg, CrCl > 30 mL/min) AND/OR *Sequential Compression Device (SCD) 5 or more Highest Order ONE of the following medications: *Heparin 5000 units SQ TID (Preferred with Epidurals) *Enoxaparin/Lovenox 40 mg SQ daily (WT < 150 kg, CrCl > 30 mL/min) *Enoxaparin/Lovenox 30 mg SQ daily (WT < 150 kg, CrCl > 10-29 mL/min) *Enoxaparin/Lovenox 30 mg SQ BID (WT < 150 kg, CrCl > 30 mL/min) AND *Sequential Compression Device (SCD) Assessment and Plan - Assessment (1) Asthma Code(s): J45.909 - Unspecified asthma, uncomplicated Status: Acute (2) PNA (pneumonia) Code(s): J18.9 - Pneumonia, unspecified organism Status: Acute (3) Hypokalemia Code(s): E87.6 - Hypokalemia Status: Acute (4) Dehydration Code(s): E86.0 - Dehydration Status: Acute - Plan A/P: 1. Asthma: Acute Asthma Exacerbation. Severe. Significant respiratory distress on arrival, h/o multiple admissions requiring intubation in the past, now improved after Solu-Medrol, DuoNeb, Mg and Epi. Admit for Observation, continue Solu-Medrol, Albuterol q4h and q2h prn, Symbicort, Mucinex. Monitor O2 2. PNA: CXR w/ new left lung base infiltrate, images reviewed. S/p Rocephin/ Zithro, will continue w/ IV Abx. 3. Hypokalemia: K+ 3.0, will replace and recheck labs in am. 4. Dehydration: GFR 69, IVF for hydration, repeat labs in am, monitor I/O. 5. DVT Prophylaxis: SCD/Teds 6. Social work for d/c planning as needed 7. Case discussed w/ ER physician at length, labs/records/imaging reviewed by me.
[2017-12-25] MEDS ORDERED: Sod Chloride 0.9% Inj 1,000 ML IV.CONT SCH (20:30)
[2017-12-25] MEDS: Acetaminophen 325 MG Tablet PO PRN (23:58)
[2017-12-25] MEDS: guaiFENesin 600 MG ER Tablet PO SCH (23:59)
[2017-12-26] MEDS: MethylPREDNISolone Sod Succinate Inj 40 MG/ML Vial IV.PUSH SCH ×5 (00:02→20:12)
[2017-12-26] MEDS: Budesonide-Formoterol 160/4.5 MCG 6 GM Inhaler INH SCH ×3 (00:44→22:05)
[2017-12-26] MEDS: Gabapentin 400 MG Capsule PO SCH ×5 (01:15→18:14)
[2017-12-26] MEDS: traZODone 50 MG Tablet PO SCH ×2 (01:16→22:03)
[2017-12-26 07:29] LABS: Baso % (Auto) 0.2 % (0.0-2.0); Hematocrit 36.4 % (35.0-46.0); Hemoglobin 11.9 gm/dL (11.6-15.3); Lymph # (Auto) 0.9 th/mm3 (1.0-4.8); Lymph % (Auto) 6.5 % (9.0-44.0); Mean Corpuscular HGB Conc 32.7 % (32.0-36.0); Mean Corpuscular Hemoglobin 29.8 pg (27.0-34.0); Mean Corpuscular Volume 91.2 fL (80.0-100.0); Mono # (Auto) 0.2 th/mm3 (0.0-0.9); Mono % (Auto) 1.2 % (0.0-8.0); Neut # (Auto) 12.9 th/mm3 (1.8-7.7); Neut % (Auto) 92.1 % (16.0-70.0); Platelet Count 269 th/mm3 (150-450); Red Blood Count 3.99 mil/mm3 (4.00-5.30)
[2017-12-26 08:13] LABS: Alanine Aminotransferase 24 U/L (10-53); Albumin 3.2 g/dL (3.4-5.0); Alkaline Phosphatase 93 U/L (45-117); Anion Gap 11 meq/L (5-15); Aspartate Aminotransferase 15 U/L (15-37); Blood Urea Nitrogen 13 mg/dL (7-18); Calcium 8.4 mg/dL (8.5-10.1); Carbon Dioxide 22.3 meq/L (21.0-32.0); Chloride 112 meq/L (98-107); Glomerular Filtration Rate 57 mL/min (>89); Glucose,Random 168 mg/dL (74-106); Potassium 4.6 meq/L (3.5-5.1); Sodium 145 meq/L (136-145); Total Protein 7.4 g/dL (6.4-8.2)
[2017-12-26] MEDS: Senna/Docusate Sodium 8.6/50 MG Tablet PO SCH ×3 (08:59→22:04)
[2017-12-26] MEDS: guaiFENesin 600 MG ER Tablet PO SCH ×2 (08:59→22:03)
[2017-12-26] MEDS ORDERED: Sertraline 50 MG Tablet PO SCH (09:00)
--- NOTE | 2017-12-26 09:58 | ECG ---
Date Performed: 12/25/2017 Time Performed: 18:09:56 PTAGE: 47 years EKG: SINUS TACHYCARDIA NONSPECIFIC ST & T-WAVE ABNORMALITY ABNORMAL RHYTHM ECG INTERPRETATION BA SED ON A DEFAULT AGE OF 40 YEARS PREVIOUS TRACING : 10/27/2017 20.02 DOCTOR: Jesika Syed Interpretating Date/Time 12/26/2017 09:55:14
--- NOTE | 2017-12-26 10:24 | P.PNIM ---
Subjective Interval history: f/u; asthma exacerbation/ pneumonia in no acute distress but still with some sob. no cough or sputum production. no fever. d/w the RN. Physical Exam Vital signs: Vital Signs 12/25/17 18:00 12/25/17 18:21 12/25/17 18:33 Temperature Pulse Rate 118 H 96 H 101 H Respiratory Rate 41 H 28 H 21 Blood Pressure 211/91 H 115/58 L Pulse Oximetry 99 96 96 12/25/17 18:34 12/25/17 18:35 12/25/17 20:00 Temperature 98.1 F Pulse Rate 101 H 101 H 107 H Respiratory Rate 15 15 15 Blood Pressure 134/71 Pulse Oximetry 96 12/25/17 20:03 12/25/17 20:29 12/25/17 23:49 Temperature 97.9 F Pulse Rate 102 H 103 H 110 H Respiratory Rate 18 15 16 Blood Pressure 102/58 L 137/63 Pulse Oximetry 97 96 92 L 12/26/17 03:41 12/26/17 07:15 12/26/17 08:00 Temperature 97.5 F L 97.8 F Pulse Rate 100 H 74 67 Respiratory Rate 16 16 18 Blood Pressure 109/54 L 128/58 L Pulse Oximetry 96 95 93 L Intake & Output 12/25/17 12/26/17 12/26/17 18:59 06:59 18:59 Intake Total 1030 / 1030 Balance 1030 / 1030 Weight 90.718 kg 90.718 kg Intake: IV 550 / 550 Azithromycin Inj 500 MG In NS 250 / 250 Inj 250 ML @ 500 mls/hr IV.SIG ONCE ONE Rx#:[id number] Magnesium Sulfate 1 gm/D5W 100 100 / 100 ml Premix 100 ML @ 100 mls/hr IV.SIG ONCE ONE Rx#:[id number] Magnesium Sulfate Inj 2 GM In 100 / 100 NS Inj 96 ML @ 50 mls/hr IV.SIG ONCE ONE Rx#:[id number] Rocephin Inj 1,000 MG In NS Inj 100 / 100 100 ML @ 200 mls/hr IV.SIG ONCE ONE Rx#:[id number] Oral 480 / 480 Other: # Voids 3 Date of Last Bowel Movement 12/25/17 Weight On Admission 90.718 kg - Constitutional mild distress - Routine Respiratory Exam Present: CTA bilaterally - Routine Cardiovascular Exam Present: RRR - Routine Abdominal Exam Present: soft - Routine Extremities Exam Comments: no pedal edema. - Routine Neurological Exam Present: alert, oriented X3 Results - Labs CBC & Chem 7: 12/26/17 06:53 12/26/17 06:53 Laboratory Results - last 24 hr 12/25/17 12/25/17 12/26/17 18:20 18:20 06:53 WBC 11.3 H 14.0 H RBC 4.28 3.99 L Hgb 12.8 11.9 Hct 38.7 36.4 MCV 90.4 91.2 MCH 30.0 29.8 MCHC 33.2 32.7 RDW 13.8 14.0 Plt Count 316 269 MPV 8.3 8.0 Neut % (Auto) 56.5 92.1 H Lymph % (Auto) 32.4 6.5 L [place] % (Auto) 7.2 1.2 Eos % (Auto) 2.7 0.0 Baso % (Auto) 1.2 0.2 Neut # (Auto) 6.4 12.9 H Lymph # (Auto) 3.7 0.9 L [place] # (Auto) 0.8 0.2 Eos # (Auto) 0.3 0.0 Baso # (Auto) 0.1 0.0 WBC Differential . . Differential Comment Auto diff final Auto diff final Sodium 142 Potassium 3.0 L Chloride 109 H Carbon Dioxide 20.3 L Anion Gap 13 BUN 11 Creatinine 0.88 Estimated GFR 69 L Random Glucose 82 Calcium 8.9 Total Bilirubin AST ALT Alkaline Phosphatase Total Protein Albumin 12/26/17 06:53 WBC RBC Hgb Hct MCV MCH MCHC RDW Plt Count MPV Neut % (Auto) Lymph % (Auto) [place] % (Auto) Eos % (Auto) Baso % (Auto) Neut # (Auto) Lymph # (Auto) [place] # (Auto) Eos # (Auto) Baso # (Auto) WBC Differential Differential Comment Sodium 145 Potassium 4.6 D Chloride 112 H Carbon Dioxide 22.3 Anion Gap 11 BUN 13 Creatinine 1.04 H Estimated GFR 57 L Random Glucose 168 H Calcium 8.4 L Total Bilirubin 0.2 AST 15 ALT 24 Alkaline Phosphatase 93 Total Protein 7.4 Albumin 3.2 L - Imaging Impressions Chest X-Ray 12/25/17 18:00 CONCLUSION: New mild streaky opacity in the left lung base of concern for possible early pneumonia. Assessment and Plan - Assessment (1) Asthma Code(s): J45.909 - Unspecified asthma, uncomplicated Status: Acute (2) PNA (pneumonia) Code(s): J18.9 - Pneumonia, unspecified organism Status: Acute (3) Hypokalemia Code(s): E87.6 - Hypokalemia Status: Acute (4) Dehydration Code(s): E86.0 - Dehydration Status: Acute - Plan 1. Acute Asthma Exacerbation. Significant respiratory distress on arrival, h /o multiple admissions requiring intubation in the past, now improved after Solu -Medrol, DuoNeb, Mg and Epi. continue Solu-Medrol, Albuterol q4h and q2h prn, Symbicort, Mucinex. Monitor O2 2. PNA: CXR w/ new left lung base infiltrate. S/p Rocephin/Zithro, will continue w/ IV Abx. 3. Hypokalemia:replaced. 4. Dehydration: GFR 69, IVF for hydration, repeat labs in am, monitor I/O. 5.leukocytosis- due to pneumonia/ steroids- will monitor. 6. DVT Prophylaxis: SCD/Teds Discharge Planning: dc home within the next one-two days if continues to improve.
[2017-12-26] MEDS: Acetaminophen 325 MG Tablet PO PRN (13:40)
[2017-12-26] MEDS ORDERED: Sodium Chloride 0.9% 2 ML Flush PRN IV.FLUSH (14:54)
[2017-12-26 17:08] LABS: ABG Base Excess -2.3 mmol/L (-2-2); ABG PCO2 34 mmHg (38-42); ABG PO2 83 mmHg (61-120)
[2017-12-26] MEDS: Sodium Chloride 0.9% 2 ML Flush BID IV.FLUSH SCH (21:53)
[2017-12-26] MEDS: Sertraline 50 MG Tablet PO SCH (22:03)
[2017-12-26] MEDS: Azithromycin Inj 250 MG in Sodium Chlor 0.9% Inj 250 ML IV.SIG SCH (22:20)
[2017-12-27] MEDS: MethylPREDNISolone Sod Succinate Inj 40 MG/ML Vial IV.PUSH SCH ×3 (05:31→20:43)
[2017-12-27 07:22] LABS: Baso % (Auto) 0.1 % (0.0-2.0); Hematocrit 35.9 % (35.0-46.0); Hemoglobin 11.6 gm/dL (11.6-15.3); Lymph # (Auto) 1.4 th/mm3 (1.0-4.8); Lymph % (Auto) 5.8 % (9.0-44.0); Mean Corpuscular HGB Conc 32.1 % (32.0-36.0); Mean Corpuscular Hemoglobin 29.7 pg (27.0-34.0); Mean Corpuscular Volume 92.3 fL (80.0-100.0); Mean Platelet Volume 8.6 fL (7.0-11.0); Mono % (Auto) 4.1 % (0.0-8.0); Neut # (Auto) 21.3 th/mm3 (1.8-7.7); Platelet Count 286 th/mm3 (150-450); Red Blood Count 3.89 mil/mm3 (4.00-5.30); Red Cell Distribution Width 14.5 % (11.6-17.2); White Blood Count 23.7 th/mm3 (4.0-11.0)
[2017-12-27 07:52] LABS: Calcium 8.6 mg/dL (8.5-10.1); Carbon Dioxide 26.5 meq/L (21.0-32.0); Potassium 4.9 meq/L (3.5-5.1)
[2017-12-27] MEDS: Gabapentin 400 MG Capsule PO SCH ×3 (08:37→17:25)
[2017-12-27] MEDS: Senna/Docusate Sodium 8.6/50 MG Tablet PO SCH ×2 (08:38→20:44)
[2017-12-27] MEDS: guaiFENesin 600 MG ER Tablet PO SCH ×2 (08:38→20:42)
[2017-12-27] MEDS: Budesonide-Formoterol 160/4.5 MCG 6 GM Inhaler INH SCH ×2 (08:38→20:44)
[2017-12-27 08:44] LABS: Lymphocytes 9 % (9-44); Monocytes 3 % (0-8)
[2017-12-27 08:45] LABS: Platelet Estimate Normal (Normal); Platelet Morphology Normal (Normal)
--- NOTE | 2017-12-27 08:46 | P.PNIM ---
Subjective Interval history: f/u; asthma exacerbation still with some sob and cough. although she says that she's feeling a little better today. no sputum production. no fever. Physical Exam Vital signs: Vital Signs 12/26/17 11:19 12/26/17 12:00 12/26/17 15:01 Temperature 97.5 F L Pulse Rate 96 H 70 88 Respiratory Rate 22 16 20 Blood Pressure 112/55 L Pulse Oximetry 93 L 12/26/17 16:00 12/26/17 19:10 12/26/17 20:33 Temperature 98.1 F 98.9 F Pulse Rate 105 H 89 78 Respiratory Rate 16 18 20 Blood Pressure 123/56 L 111/58 L Pulse Oximetry 93 L 90 L 96 12/26/17 23:08 12/27/17 03:14 12/27/17 07:30 Temperature 99.0 F 97.8 F 97.9 F Pulse Rate 89 79 73 Respiratory Rate 18 18 Blood Pressure 98/51 L 117/57 L 133/63 Pulse Oximetry 90 L 91 L 92 L Intake & Output 12/26/17 12/27/17 12/27/17 18:59 06:59 18:59 Intake Total 400 / 400 1350 / 1350 Balance 400 / 400 1350 / 1350 Weight 90.718 kg Intake: IV 1350 / 1350 Azithromycin Inj 250 MG In NS 250 / 250 Inj 250 ML @ 250 mls/hr IV.SIG Q24H BRIT Rx#:[id number] Rocephin Inj 1,000 MG In NS Inj 100 / 100 100 ML @ 200 mls/hr IV.SIG Q24H BRIT Rx#:[id number] Oral 400 / 400 Other: # Voids 3 Date of Last Bowel Movement 12/25/17 - Constitutional mild distress - Routine Respiratory Exam Present: CTA bilaterally - Routine Cardiovascular Exam Present: RRR - Routine Abdominal Exam Present: soft - Routine Extremities Exam Comments: no pedal edema. - Routine Neurological Exam Present: alert, oriented X3 Results - Labs CBC & Chem 7: 12/27/17 06:20 12/27/17 06:20 Laboratory Results - last 24 hr 12/25/17 12/27/17 12/27/17 18:17 06:20 06:20 WBC 23.7 H D RBC 3.89 L Hgb 11.6 Hct 35.9 MCV 92.3 MCH 29.7 MCHC 32.1 RDW 14.5 Plt Count 286 MPV 8.6 Prelim Diff (Auto) Slide review pending Neut % (Auto) 90.0 H Lymph % (Auto) 5.8 L [place] % (Auto) 4.1 Eos % (Auto) 0.0 Baso % (Auto) 0.1 Neut # (Auto) 21.3 H Lymph # (Auto) 1.4 [place] # (Auto) 1.0 H Eos # (Auto) 0.0 Baso # (Auto) 0.0 WBC Differential . Differential Comment . Puncture Site Right radial Patient Temperature 98.6 O2 Saturation 95 ABG pH 7.41 ABG pCO2 34 L ABG pO2 83 ABG HCO3 22 ABG O2 Content 16.7 ABG Base Excess -2.3 L ABG Methemoglobin 0.8 Tristan Test Y Hemoglobin 12.5 Carboxyhemoglobin 0.7 O2 Delivery Device Nasal cannula Liter Flow 2.00 Critical Value No Sodium 144 Potassium 4.9 Chloride 109 H Carbon Dioxide 26.5 Anion Gap 9 BUN 16 Creatinine 0.92 Estimated GFR 66 L Random Glucose 153 H Calcium 8.6 Assessment and Plan - Assessment (1) Asthma Code(s): J45.909 - Unspecified asthma, uncomplicated Status: Acute (2) PNA (pneumonia) Code(s): J18.9 - Pneumonia, unspecified organism Status: Acute (3) Hypokalemia Code(s): E87.6 - Hypokalemia Status: Acute (4) Dehydration Code(s): E86.0 - Dehydration Status: Acute - Plan 1. Acute Asthma Exacerbation. Significant respiratory distress on arrival, h /o multiple admissions requiring intubation in the past, now improved after Solu -Medrol, DuoNeb. continue Solu-Medrol, Albuterol q4h and q2h prn, Symbicort, Mucinex. Monitor O2. 2. PNA: CXR w/ new left lung base infiltrate. S/p Rocephin/Zithro, will continue w/ IV Abx. 3. Hypokalemia:replaced. 4. Dehydration: improved. 5.leukocytosis- due to pneumonia/ steroids- will monitor. 6. DVT Prophylaxis: SCD/Teds Discharge Planning: might have to stay for another couple of days for IV sterid/ neb treatments.
[2017-12-27] MEDS: Sodium Chloride 0.9% 2 ML Flush BID IV.FLUSH SCH ×2 (12:14→20:43)
[2017-12-27] MEDS: Sertraline 50 MG Tablet PO SCH (20:42)
[2017-12-27] MEDS: traZODone 50 MG Tablet PO SCH (20:51)
[2017-12-27] MEDS: Azithromycin Inj 250 MG in Sodium Chlor 0.9% Inj 250 ML IV.SIG SCH (21:39)
[2017-12-28] MEDS: MethylPREDNISolone Sod Succinate Inj 40 MG/ML Vial IV.PUSH SCH ×2 (05:05→11:51)
[2017-12-28 07:27] LABS: Hematocrit 36.5 % (35.0-46.0); Hemoglobin 11.8 gm/dL (11.6-15.3); Lymph # (Auto) 1.5 th/mm3 (1.0-4.8); Lymph % (Auto) 7.7 % (9.0-44.0); Mean Corpuscular HGB Conc 32.3 % (32.0-36.0); Mean Corpuscular Hemoglobin 29.9 pg (27.0-34.0); Mean Corpuscular Volume 92.6 fL (80.0-100.0); Mean Platelet Volume 8.4 fL (7.0-11.0); Mono # (Auto) 0.5 th/mm3 (0.0-0.9); Mono % (Auto) 2.8 % (0.0-8.0); Neut # (Auto) 16.9 th/mm3 (1.8-7.7); Neut % (Auto) 89.5 % (16.0-70.0); Platelet Count 268 th/mm3 (150-450); Red Blood Count 3.94 mil/mm3 (4.00-5.30); Red Cell Distribution Width 14.5 % (11.6-17.2); White Blood Count 18.9 th/mm3 (4.0-11.0)
[2017-12-28] MEDS: Gabapentin 400 MG Capsule PO SCH ×4 (08:13→17:30)
[2017-12-28] MEDS: Senna/Docusate Sodium 8.6/50 MG Tablet PO SCH ×2 (08:13→23:01)
[2017-12-28] MEDS: guaiFENesin 600 MG ER Tablet PO SCH ×2 (08:13→23:00)
[2017-12-28] MEDS: Budesonide-Formoterol 160/4.5 MCG 6 GM Inhaler INH SCH ×2 (08:14→23:02)
[2017-12-28] MEDS: Sodium Chloride 0.9% 2 ML Flush BID IV.FLUSH SCH ×2 (10:25→23:02)
--- NOTE | 2017-12-28 12:03 | P.PNIM ---
Subjective Interval history: f/u; pneumonia in no acute distress. sob/cough improving slowly. no fever. Physical Exam Vital signs: Vital Signs 12/27/17 12:38 12/27/17 15:37 12/27/17 20:00 Temperature 98.5 F 98.3 F Pulse Rate 72 85 81 Respiratory Rate 12 16 17 Blood Pressure 123/59 L 118/61 Pulse Oximetry 94 L 93 L 12/27/17 20:20 12/27/17 23:47 12/28/17 03:33 Temperature 98.5 F 98.3 F Pulse Rate 64 73 63 Respiratory Rate 18 17 17 Blood Pressure 133/70 145/71 H Pulse Oximetry 94 L 94 L 12/28/17 07:24 12/28/17 07:25 12/28/17 08:00 Temperature 97.9 F Pulse Rate 64 84 Respiratory Rate 16 18 Blood Pressure 140/67 Pulse Oximetry 96 95 12/28/17 08:52 12/28/17 10:57 12/28/17 11:28 Temperature 97.6 F Pulse Rate 84 88 95 H Respiratory Rate 18 16 Blood Pressure 130/70 Pulse Oximetry 95 Intake & Output 12/27/17 12/28/17 12/28/17 18:59 06:59 18:59 Intake Total 1070 / 1070 Balance 1070 / 1070 Weight 90.718 kg Intake: IV 350 / 350 Azithromycin Inj 250 MG In NS 250 / 250 Inj 250 ML @ 250 mls/hr IV.SIG Q24H BRIT Rx#:[id number] Rocephin Inj 1,000 MG In NS Inj 100 / 100 100 ML @ 200 mls/hr IV.SIG Q24H BRIT Rx#:[id number] Oral 720 / 720 Other: # Voids 2 Date of Last Bowel Movement 12/25/17 12/25/17 - Constitutional mild distress - Routine Respiratory Exam Present: CTA bilaterally (wheezing seems to be improving.) - Routine Cardiovascular Exam Present: RRR - Routine Abdominal Exam Present: soft - Routine Extremities Exam Comments: no pedal edema. - Routine Neurological Exam Present: alert, oriented X3 Results - Labs CBC & Chem 7: 12/28/17 05:35 12/27/17 06:20 Laboratory Results - last 24 hr 12/28/17 05:35 WBC 18.9 H RBC 3.94 L Hgb 11.8 Hct 36.5 MCV 92.6 MCH 29.9 MCHC 32.3 RDW 14.5 Plt Count 268 MPV 8.4 Neut % (Auto) 89.5 H Lymph % (Auto) 7.7 L [place] % (Auto) 2.8 Eos % (Auto) 0.0 Baso % (Auto) 0.0 Neut # (Auto) 16.9 H Lymph # (Auto) 1.5 [place] # (Auto) 0.5 Eos # (Auto) 0.0 Baso # (Auto) 0.0 WBC Differential . Differential Comment Auto diff final Assessment and Plan - Assessment (1) Asthma Code(s): J45.909 - Unspecified asthma, uncomplicated Status: Acute (2) PNA (pneumonia) Code(s): J18.9 - Pneumonia, unspecified organism Status: Acute (3) Hypokalemia Code(s): E87.6 - Hypokalemia Status: Acute (4) Dehydration Code(s): E86.0 - Dehydration Status: Acute - Plan 1. Acute Asthma Exacerbation. Significant respiratory distress on arrival, h /o multiple admissions requiring intubation in the past, now improved after Solu -Medrol, DuoNeb. continue Solu-Medrol, Albuterol q4h and q2h prn, Symbicort, Mucinex. Monitor O2. will start to taper down the IV steroids. 2. PNA: CXR w/ new left lung base infiltrate. S/p Rocephin/Zithro, will continue w/ IV Abx. 3. Hypokalemia:replaced. 4. Dehydration: improved. 5.leukocytosis- due to pneumonia/ steroids- will monitor. 6. DVT Prophylaxis: SCD/Teds Discharge Planning: dc home towards the end of the week if continues to improve clinically.
[2017-12-28] MEDS ORDERED: Influenza (Quadrivalent) Vaccine 0.5 ML Syringe IM ONE (22:00)
[2017-12-28] MEDS: Sertraline 50 MG Tablet PO SCH (23:00)
[2017-12-28] MEDS: Azithromycin Inj 250 MG in Sodium Chlor 0.9% Inj 250 ML IV.SIG SCH (23:00)
[2017-12-28] MEDS: traZODone 50 MG Tablet PO SCH (23:01)
[2017-12-29] MEDS ORDERED: MethylPREDNISolone Sod Succinate Inj 40 MG/ML Vial IV.PUSH SCH
[2017-12-29 08:23] LABS: Hematocrit 37.9 % (35.0-46.0); Hemoglobin 12.3 gm/dL (11.6-15.3); Lymph # (Auto) 2.1 th/mm3 (1.0-4.8); Lymph % (Auto) 13.2 % (9.0-44.0); Mean Corpuscular HGB Conc 32.4 % (32.0-36.0); Mean Corpuscular Hemoglobin 29.9 pg (27.0-34.0); Mean Corpuscular Volume 92.3 fL (80.0-100.0); Mean Platelet Volume 8.4 fL (7.0-11.0); Mono # (Auto) 0.8 th/mm3 (0.0-0.9); Mono % (Auto) 4.9 % (0.0-8.0); Neut # (Auto) 13.1 th/mm3 (1.8-7.7); Neut % (Auto) 81.9 % (16.0-70.0); Platelet Count 276 th/mm3 (150-450); Red Blood Count 4.11 mil/mm3 (4.00-5.30)
[2017-12-29] MEDS: guaiFENesin 600 MG ER Tablet PO SCH ×2 (08:27→21:01)
[2017-12-29] MEDS: Gabapentin 400 MG Capsule PO SCH ×3 (08:27→17:03)
[2017-12-29] MEDS: Sodium Chloride 0.9% 2 ML Flush BID IV.FLUSH SCH ×2 (08:28→21:03)
[2017-12-29] MEDS: Budesonide-Formoterol 160/4.5 MCG 6 GM Inhaler INH SCH ×2 (08:28→21:02)
[2017-12-29] MEDS: Senna/Docusate Sodium 8.6/50 MG Tablet PO SCH ×2 (08:28→21:01)
--- NOTE | 2017-12-29 11:56 | P.PNIM ---
Subjective Interval history: Patient says that shortness of breath continues to improve. She does not feel comfortable going home yet. She agrees with tapering to by mouth prednisone to see how she does. Physical Exam Vital signs: Vital Signs 12/28/17 15:05 12/28/17 16:00 12/28/17 19:54 Temperature 98.3 F 98.3 F Pulse Rate 73 73 69 Respiratory Rate 18 18 17 Blood Pressure 135/61 135/61 Pulse Oximetry 93 L 93 L 12/28/17 20:00 12/29/17 00:00 12/29/17 04:00 Temperature 97.8 F 97.8 F 97 F L Pulse Rate 63 94 H 55 L Respiratory Rate 18 Blood Pressure 128/61 149/66 H 141/64 H Pulse Oximetry 92 L 97 12/29/17 07:53 12/29/17 08:00 Temperature 97.5 F L Pulse Rate 51 L 57 L Respiratory Rate 16 19 Blood Pressure 142/69 H Pulse Oximetry 95 97 Intake & Output 12/28/17 12/29/17 12/29/17 18:59 06:59 18:59 Intake Total 590 / 590 Output Total 700 / 700 Balance -110 / -110 Weight 93.6 kg 93.7 kg Intake: IV 350 / 350 Azithromycin Inj 250 MG In NS 250 / 250 Inj 250 ML @ 250 mls/hr IV.SIG Q24H BRIT Rx#:[id number] Rocephin Inj 1,000 MG In NS Inj 100 / 100 100 ML @ 200 mls/hr IV.SIG Q24H BRIT Rx#:[id number] Oral 240 / 240 Output: Urine 700 / 700 Other: # Voids 2 Date of Last Bowel Movement 12/25/17 # Bowel Movements 0 Narrative: GENERAL: Patient sitting up in bed. Appears comfortable. SKIN: Warm and dry. HEAD: Normocephalic. EYES: No scleral icterus. No injection or drainage. NECK: Supple, trachea midline. No JVD. CARDIOVASCULAR: Regular rate and rhythm without murmurs, gallops, or rubs. RESPIRATORY: Breath sounds equal with faint wheezing bilaterally. No accessory muscle use. GASTROINTESTINAL: Abdomen soft, non-tender, nondistended. MUSCULOSKELETAL: No cyanosis, or edema. BACK: Nontender without obvious deformity. No CVA tenderness. Results - Labs CBC & Chem 7: 12/29/17 06:48 12/27/17 06:20 Laboratory Results - last 24 hr 12/29/17 06:48 WBC 16.0 H RBC 4.11 Hgb 12.3 Hct 37.9 MCV 92.3 MCH 29.9 MCHC 32.4 RDW 14.0 Plt Count 276 MPV 8.4 Prelim Diff (Auto) Slide review pending Neut % (Auto) 81.9 H Lymph % (Auto) 13.2 [place] % (Auto) 4.9 Eos % (Auto) 0.0 Baso % (Auto) 0.0 Neut # (Auto) 13.1 H Lymph # (Auto) 2.1 [place] # (Auto) 0.8 Eos # (Auto) 0.0 Baso # (Auto) 0.0 Differential Comment . Assessment and Plan - Assessment (1) Asthma Code(s): J45.909 - Unspecified asthma, uncomplicated Status: Acute (2) PNA (pneumonia) Code(s): J18.9 - Pneumonia, unspecified organism Status: Acute (3) Hypokalemia Code(s): E87.6 - Hypokalemia Status: Acute (4) Dehydration Code(s): E86.0 - Dehydration Status: Acute - Plan // Acute Asthma Exacerbation. Significant respiratory distress on arrival, h/ o multiple admissions requiring intubation in the past, now improved after Solu- Medrol, DuoNeb. continue Solu-Medrol, Albuterol q4h and q2h prn, Symbicort, Mucinex. Monitor O2. will start to taper down the IV steroids. = 12/29. Tapered to p.o. steroids. Assess response. Continue to monitor. //PNA: CXR w/ new left lung base infiltrate. S/p Rocephin/Zithro, will continue w/ IV Abx. = Continue antibiotics. Switch to by mouth discharge. // Hypokalemia: Resolved after replacement. // Dehydration: improved. //leukocytosis- due to pneumonia/ steroids- will monitor. //DVT Prophylaxis: SCD/Teds Discussed Condition With: Patient, nurse. Discharge Planning: dc home towards the end of the week if continues to improve clinically.
[2017-12-29] MEDS: predniSONE 20 MG Tablet PO SCH (21:00)
[2017-12-29] MEDS: traZODone 50 MG Tablet PO SCH (21:00)
[2017-12-29] MEDS: ALPRAZolam 0.5 MG Tablet PO SCH (21:01)
[2017-12-29] MEDS: Sertraline 50 MG Tablet PO SCH (21:01)
[2017-12-29] MEDS: Azithromycin Inj 250 MG in Sodium Chlor 0.9% Inj 250 ML IV.SIG SCH (21:02)
[2017-12-30] MEDS: ALPRAZolam 0.5 MG Tablet PO SCH (08:35)
[2017-12-30] MEDS: guaiFENesin 600 MG ER Tablet PO SCH (08:35)
[2017-12-30] MEDS: predniSONE 20 MG Tablet PO SCH (08:35)
[2017-12-30] MEDS: Gabapentin 400 MG Capsule PO SCH ×2 (08:35→12:01)
[2017-12-30] MEDS: Sodium Chloride 0.9% 2 ML Flush BID IV.FLUSH SCH (08:35)
[2017-12-30] MEDS: Senna/Docusate Sodium 8.6/50 MG Tablet PO SCH (08:35)
[2017-12-30] MEDS: Budesonide-Formoterol 160/4.5 MCG 6 GM Inhaler INH SCH (08:37)
[2017-12-30 09:01] VITALS: BP 120/71; RESP 16; TEMP 97.7; O2SAT 96
[2017-12-30 09:16] VITALS: PULSE 55
--- NOTE | 2017-12-30 11:47 | P.PN ---
Subjective Interval history: No wheezing. She is not coughing. No fever or chills overnight. No nausea or vomiting. Physical Exam Vital signs: Vital Signs 12/29/17 12:00 12/29/17 12:08 12/29/17 15:30 Temperature 98.1 F Pulse Rate 87 63 69 Respiratory Rate 18 16 16 Blood Pressure 126/60 Pulse Oximetry 96 12/29/17 16:00 12/29/17 20:00 12/29/17 20:06 Temperature 98.1 F 98.3 F Pulse Rate 62 64 63 Respiratory Rate 18 18 18 Blood Pressure 130/60 121/69 Pulse Oximetry 96 95 12/29/17 23:02 12/30/17 00:00 12/30/17 04:00 Temperature 97.5 F L 97.8 F Pulse Rate 65 53 L Respiratory Rate 19 18 18 Blood Pressure 119/69 133/67 Pulse Oximetry 95 93 L 12/30/17 08:00 12/30/17 09:00 Temperature 97.7 F Pulse Rate 65 55 L Respiratory Rate 16 Blood Pressure 120/71 Pulse Oximetry 96 Intake & Output 12/29/17 12/30/17 12/30/17 18:59 06:59 18:59 Intake Total 720 / 720 350 / 350 Output Total 700 / 700 Balance 350 / 350 Weight 92.6 kg Intake: IV 350 / 350 Azithromycin Inj 250 MG In NS 250 / 250 Inj 250 ML @ 250 mls/hr IV.SIG Q24H BRIT Rx#:[id number] Rocephin Inj 1,000 MG In NS Inj 100 / 100 100 ML @ 200 mls/hr IV.SIG Q24H BRIT Rx#:[id number] Oral 720 / 720 Output: Urine 700 / 700 Other: Date of Last Bowel Movement 12/25/17 # Bowel Movements 1 Narrative: GENERAL: Patient sitting up in bed. Appears in not acute distress. She is saturating well on room air CARDIOVASCULAR: Regular rate and rhythm without murmurs, gallops, or rubs. RESPIRATORY: Breath sounds equal, no wheezing, no accessory muscle use. GASTROINTESTINAL: Abdomen soft, non-tender, nondistended. MUSCULOSKELETAL: No cyanosis, or edema. BACK: Nontender without obvious deformity. No CVA tenderness. Results - Labs CBC & Chem 7: 12/29/17 06:48 12/27/17 06:20 Laboratory Results - last 24 hr 12/29/17 06:48 WBC Differential . Diff Scan Auto diff confirmed Assessment and Plan - Assessment (1) Asthma Code(s): J45.909 - Unspecified asthma, uncomplicated Status: Acute (2) PNA (pneumonia) Code(s): J18.9 - Pneumonia, unspecified organism Status: Acute (3) Hypokalemia Code(s): E87.6 - Hypokalemia Status: Acute (4) Dehydration Code(s): E86.0 - Dehydration Status: Acute - Plan Acute Asthma Exacerbation. Significant respiratory distress on arrival, h/o multiple admissions requiring intubation in the past, now improved after Solu-Medrol, DuoNeb. continue Solu- Medrol, Albuterol q4h and q2h prn, Symbicort, Mucinex. Monitor O2. taper down the IV steroids, switch by mouth. Discharged home with prednisone p.o. = 12/29. Tapered to p.o. steroids. Assess response. Continue to monitor. PNA: CXR w/ new left lung base infiltrate. S/p Rocephin/Zithro. Switch to p.o. Ceftin at discharge Hypokalemia: Resolved after replacement. Dehydration: //leukocytosis- due to pneumonia/ steroids- will monitor. //DVT Prophylaxis: SCD/Teds Patient is improved. Discharged home in stable condition to follow-up with PCP and consultants as outpatient. Patient follows with Dr. Champagne pulmonology. Advised patient to make an appointment to see Dr. Champagne as well.
--- NOTE | 2017-12-30 11:54 | P.DS ---
Date of admission: 12/27/17 09:21 Primary care physician: UNKNOWN Brief History from admission: This is a 47-year-old female with a PMH of Asthma who was brought to the ER by EMS secondary to severe SOB starting earlier today. Pt reports SOB at baseline due to severe Asthma, and has had multiple admissions in the past requiring intubation. Today, noted symptoms worse than usual, no relief after using home Neb/MDI. S/p Solu-Medrol and DuoNeb x3 by EMS w/ minimal improvement initially. Denies fever, chills, cough or sick contacts. On arrival, BP 115/58 , HR 96, O2 sat 96% on 2L NC. K+ 3.0. GFR 69. WBC 11.3. CXR with mild streaky opacity left lung base concerning for early pneumonia. S/p additional treatment w/ Mg and Epi in ER w/ improvement. DS: Diagnosis - Discharge Diagnosis (1) Asthma Status: Acute (2) PNA (pneumonia) Status: Acute (3) Hypokalemia Status: Acute (4) Dehydration Status: Acute DS: Medications - Discharge Medications Prescriptions: albuterol sulfate 2.5 mg NEB Q4HR NEB PRN #180 ml PRN Reason: Shortness Of Breath/Wheezing albuterol sulfate [ProAir HFA] 2 puff INHALATION Q4-6H PRN #1 inhaler PRN Reason: shortness of breath/wheezing budesonide-formoterol [Symbicort] 2 puff INH BID 30 Days g cefuroxime axetil 250 mg PO Q12H #6 tab prednisone 20 mg PO BID #8 tab DS: Summary Hospital Course: Acute Asthma Exacerbation. Significant respiratory distress on arrival, h/o multiple admissions requiring intubation in the past, now improved after Solu-Medrol, DuoNeb. continue Solu- Medrol, Albuterol q4h and q2h prn, Symbicort, Mucinex. Monitor O2. taper down the IV steroids, switch by mouth. Discharged home with prednisone p.o. = 12/29. Tapered to p.o. steroids. Assess response. Continue to monitor. PNA: CXR w/ new left lung base infiltrate. S/p Rocephin/Zithro. Switch to p.o. Ceftin at discharge Hypokalemia: Resolved after replacement. Dehydration: //leukocytosis- due to pneumonia/ steroids- will monitor. //DVT Prophylaxis: SCD/Teds Patient is improved. Discharged home in stable condition to follow-up with PCP and consultants as outpatient. Patient follows with Dr. Champagne pulmonology. Advised patient to make an appointment to see Dr. Champagne as well. - Time Spent with Patient Total time spent providing and/or coordinating discharge services: Greater than 30 minutes - Quality: VTE Deep Vein Thrombosis/Pulmonary Embolism Present on Admission: No Exam Vital signs: Vital Signs 12/29/17 12:00 12/29/17 12:08 12/29/17 15:30 Temperature 98.1 F Pulse Rate 87 63 69 Respiratory Rate 18 16 16 Blood Pressure 126/60 Pulse Oximetry 96 12/29/17 16:00 12/29/17 20:00 12/29/17 20:06 Temperature 98.1 F 98.3 F Pulse Rate 62 64 63 Respiratory Rate 18 18 18 Blood Pressure 130/60 121/69 Pulse Oximetry 96 95 12/29/17 23:02 12/30/17 00:00 12/30/17 04:00 Temperature 97.5 F L 97.8 F Pulse Rate 65 53 L Respiratory Rate 19 18 18 Blood Pressure 119/69 133/67 Pulse Oximetry 95 93 L 12/30/17 08:00 12/30/17 09:00 Temperature 97.7 F Pulse Rate 65 55 L Respiratory Rate 16 Blood Pressure 120/71 Pulse Oximetry 96 Intake & Output 12/29/17 12/30/17 12/30/17 18:59 06:59 18:59 Intake Total 720 / 720 350 / 350 Output Total 700 / 700 Balance 350 / 350 Weight 92.6 kg Intake: IV 350 / 350 Azithromycin Inj 250 MG In NS 250 / 250 Inj 250 ML @ 250 mls/hr IV.SIG Q24H BRIT Rx#:[id number] Rocephin Inj 1,000 MG In NS Inj 100 / 100 100 ML @ 200 mls/hr IV.SIG Q24H BRIT Rx#:[id number] Oral 720 / 720 Output: Urine 700 / 700 Other: Date of Last Bowel Movement 12/25/17 # Bowel Movements 1 Narrative: GENERAL: Patient sitting up in bed. Appears in not acute distress. She is saturating well on room air CARDIOVASCULAR: Regular rate and rhythm without murmurs, gallops, or rubs. RESPIRATORY: Breath sounds equal, no wheezing, no accessory muscle use. GASTROINTESTINAL: Abdomen soft, non-tender, nondistended. MUSCULOSKELETAL: No cyanosis, or edema. BACK: Nontender without obvious deformity. No CVA tenderness. Results Procedures completed during hospitalization: no procedures Labs on day of discharge: Labs from last 24 hours 12/29/17 06:48 WBC Differential . Diff Scan Auto diff confirmed - Impressions ITS Impressions Chest X-Ray 12/25/17 18:00 CONCLUSION: New mild streaky opacity in the left lung base of concern for possible early pneumonia. Discharge Plan - Discharge Disposition Patient Disposition: Discharge Home - Discharge Condition Condition: Stable - Discharge Order Discharge Orders: Discharge Order (Routine); Ordered 12/30/17 Ordered By: Luiza Esquivel - Discharge Details Anticipated Discharge Date: 12/30/17 - Physicians Team Primary Care Provider: UNKNOWN, Attending Provider: Luiza Esquivel
[2017-12-30 13:24] LABS: Bilirubin,Urine Negative (Negative); Clarity,Urine Clear (Clear); Color,Urine Yellow (Yellw/Straw); Glucose,Urine (UA) Negative (Negative); Leukocyte Esterase,Urine Negative (Negative); Nitrite,Urine Negative (Negative); Specific Gravity,Urine 1.016 (1.002-1.035); Squamous Epithelial Cell,Urine 1 /hpf (0-5)
== END 2017-12-30 13:05 | disposition home or self-care (01) ==
LOC: NEPE 17:51 → NEDA 17:51 → NEPGCP 21:10 → N04 12-28 14:24
PROVIDERS: ADMIT Hospitalist; ATTEND Hospitalist

== ENCOUNTER 2018-02-25 23:07 | Observation (INO) ==
[2018-02-25] MEDS ORDERED: Morphine Inj 4 MG/ML Vial IV.PUSH ONE (23:14)
--- NOTE | 2018-02-25 23:23 | ED ---
HPI General Chief Complaint: Chest Pain Stated Complaint: Chest Pain Time Seen by Provider: 02/25/18 23:10 Source: patient and EMS Mode of arrival: EMS Limitations: no limitations History of Present Illness MD complaint: Reports chest pain STEMI Alert: No Onset (ago): week(s) (few) Duration: intermittent Onset: during rest Pain location: Reports substernal Severity scale (1-10): 9 Quality: Reports sharp Pain radiation: Reports back Relieving factors: nitroglycerin (NTG X 2 per EMS took pain from 9>>5) Exacerbating factors: nothing Associated symptoms: Reports nausea and other (dizziness); Denies dyspnea Treatments prior to arrival chest pain: Reports aspirin and nitroglycerin Related Data On Oral Contraceptives: No Home Medications Medication Instructions Recorded Confirmed gabapentin 800 mg PO TID 10/27/17 12/25/17 levothyroxine 25 mcg PO DAILY 10/27/17 12/25/17 sertraline [Zoloft] 50 mg PO DAILY 10/27/17 12/25/17 alprazolam 0.5 mg PO BID 12/25/17 12/25/17 atorvastatin 20 mg PO DAILY 12/25/17 12/25/17 montelukast 5 mg PO QPM 12/25/17 12/25/17 pantoprazole 40 mg PO DAILY 12/25/17 12/25/17 trazodone 25 mg PO DAILY 12/25/17 12/25/17 Previous Rx's Medication Instructions Recorded albuterol sulfate 2.5 mg NEB Q4HR NEB PRN #180 ml 12/30/17 albuterol sulfate [ProAir HFA] 2 puff INHALATION Q4-6H PRN #1 12/30/17 inhaler cefuroxime axetil 250 mg PO Q12H #6 tab 12/30/17 prednisone 20 mg PO BID #8 tab 12/30/17 Allergies Allergy/AdvReac Type Severity Reaction Status Date / Time morphine Allergy Abdominal Verified 02/25/18 23:20 Pain Review of Systems ROS: all other systems reviewed are negative [facility] Medical History Medical History GERD (gastroesophageal reflux disease) (Acute) Depression (Chronic) Thyroid activity decreased (Acute) Asthma (Acute) Neuropathy (Chronic) Surgical History Surgical History No history of previous surgery (Acute) Family History Family History Other Family history normal Social History Social History Substance History: No History of Abuse Second Hand Smoke Exposure: No Smoking Status: Never smoker How Often Do You Have a Drink Containing Alcohol: Monthly or less Exam Const General: cooperative, healthy appearing and comfortable Orientation: alert, awake and oriented x3 HENMT Head: normal to inspection, normocephalic and atraumatic Eyes General: appearance normal, both eyes and all related structures Conjunctivae: conjunctivae normal Sclera: sclerae normal EOM: EOM intact bilaterally Neck Neck: normal visual inspection and full ROM Chest Chest: normal inspection of the chest and tenderness Resp Effort & Inspection: normal respiratory effort and able to speak in complete sentences Auscultation: clear to auscultation bilaterally Cardio Rate: regular rate Rhythm: regular rhythm Heart Sounds: S1 normal and S2 normal GI Inspection: normal to inspection Palpation: soft Back/Spine/Pelvis Cervical Spine: cervical ROM normal Thoracic/Lumbar Spine: thoraco-lumbar ROM normal Skin General: no rashes or lesions noted, turgor normal and dry skin Neuro General: alert, awake, oriented x3, moves all extremities and CN's II-XI intact bilaterally Extrem General: normal to inspection, full ROM and no pedal edema Psych Appearance: grossly normal Mental Status: mental status grossly normal Speech and Movement: speech and movement normal Mood: congruent mood Affect: anxious affect Attitude: cooperative Thought Process: normal Thought Content: normal Judgment: judgment good Course Initial Documented Vital Signs Temperature 98.0 F 02/25/18 23:12 Respiratory Rate 16 02/25/18 23:12 Blood Pressure 114/68 02/25/18 23:12 Pulse Oximetry 96 02/25/18 23:12 Last Documented Vital Signs Temperature 98.0 F 02/25/18 23:12 Respiratory Rate 16 02/25/18 23:12 Blood Pressure 114/68 02/25/18 23:12 Pulse Oximetry 96 02/25/18 23:12 Clinical Decision Support HEART Score Questions History: Slightly suspicious EKG: Normal Age: 45-64 years Risk Factors: No Known Risk Factors Initial Troponin: Normal Limit Heart Score HEART Score: 1 Medical Decision Making MDM Narrative Medical decision making narrative: This patient presents to us with a chief complaint of chest pain which has been bothering her intermittently for the last several weeks. She describes the pain as sharp and associated with nausea and dizziness. It is exacerbated by taking a deep breath. She was treated per EMS with nitroglycerin x2 as well as aspirin. She states that her pain went from a 9 to a 5 with this treatment. Chest pain workup has been initiated. Aspirin was given per EMS. An inch of Nitropaste has been placed. Workup in the emergency department is negative. Her heart score is 1. It is unlikely that she has a cardiac etiology for her chest pain. She will be admitted to the chest pain center for further evaluation of her chest pain. Medical Screen Exam Complete: Yes Emergency Medical Condition: Yes Lab Data Lab results reviewed: Yes I reviewed the patient's lab results. Result diagrams: 02/25/18 23:33 02/25/18 23:33 Lab Results 02/25/18 02/25/18 02/25/18 Range/Units 23:33 23:33 23:33 WBC 9.8 (4.0-11.0) th/mm3 RBC 3.96 L (4.00-5.30) mil/mm3 Hgb 12.1 (11.6-15.3) gm/dL Hct 35.0 (35.0-46.0) % MCV 88.4 (80.0-100.0) fL MCH 30.7 (27.0-34.0) pg MCHC 34.7 (32.0-36.0) % RDW 14.0 (11.6-17.2) % Plt Count 244 (150-450) th/mm3 MPV 8.2 (7.0-11.0) fL Neut % (Auto) 58.4 (16.0-70.0) % Lymph % (Auto) 30.4 (9.0-44.0) % [place] % (Auto) 6.1 (0.0-8.0) % Eos % (Auto) 4.4 H (0.0-4.0) % Baso % (Auto) 0.7 (0.0-2.0) % Neut # (Auto) 5.7 (1.8-7.7) th/mm3 Lymph # (Auto) 3.0 (1.0-4.8) th/mm3 [place] # (Auto) 0.6 (0.0-0.9) th/mm3 Eos # (Auto) 0.4 (0.0-0.4) th/mm3 Baso # (Auto) 0.1 (0.0-0.2) th/mm3 WBC Differential . Differential Comment Auto diff final D-Dimer Quant (PE/DVT) 0.44 (0.00-0.50) mg/L FEU Sodium 139 (136-145) meq/L Potassium 3.5 (3.5-5.1) meq/L Chloride 105 (98-107) meq/L Carbon Dioxide 27.0 (21.0-32.0) meq/L Anion Gap 7 (5-15) meq/L BUN 14 (7-18) mg/dL Creatinine 0.99 (0.50-1.00) mg/dL Estimated GFR 60 L (>89) mL/min Random Glucose 96 (74-106) mg/dL Calcium 8.7 (8.5-10.1) mg/dL Total Bilirubin 0.2 (0.2-1.0) mg/dL AST 16 (15-37) U/L ALT 23 (10-53) U/L Alkaline Phosphatase 95 (45-117) U/L Troponin I Less than 0.02 L (0.02-0.05) ng/mL Total Protein 7.3 (6.4-8.2) g/dL Albumin 3.6 (3.4-5.0) g/dL Imaging Data Attestation: I personally reviewed and interpreted this imaging study as follows : Radiologist's impression: Chest X-Ray 02/25/18 23:14 CONCLUSION: Linear scarring or atelectasis at the left base. ECG Data EKG Prior to Arrival: No Attestation: I personally reviewed and interpreted this ECG as follows: (NSR. rate 79. no acute ST-T changes. single PVC.) Discharge Plan Discharge Disposition Patient Disposition: ED Admit(ED Internal Use Only) Discharge Order Discharge Orders: ED Use Only Admit Order (Routine); Ordered 02/26/18 Ordered By: Arlen Suárez Discharge Details Diagnosis: Chest pain Physicians Team ED Provider: Arlen Suárez Primary Care Provider: UNKNOWN, Rxs /Orders / Referrals /Forms Prescriptions: No Action levothyroxine 25 mcg Tablet 25 mcg PO DAILY RF: 0 gabapentin 800 mg Tablet 800 mg PO TID RF: 0 sertraline [Zoloft] 25 mg Tablet 50 mg PO DAILY RF: 0 montelukast 5 mg Tablet,Chewable 5 mg PO QPM RF: 0 atorvastatin 20 mg Tablet 20 mg PO DAILY RF: 0 trazodone 50 mg Tablet 25 mg PO DAILY RF: 0 alprazolam 0.5 mg Tablet 0.5 mg PO BID RF: 0 pantoprazole 40 mg Tablet,Delayed Release (Dr/Ec) 40 mg PO DAILY RF: 0 prednisone 20 mg Tablet 20 mg PO BID Qty: 8 RF: 0 albuterol sulfate 2.5 mg /3 mL (0.083 %) Solution For Nebulization 2.5 mg NEB Q4HR NEB PRN (Reason: Shortness Of Breath/Wheezing) Qty: 180 RF: 0 albuterol sulfate [ProAir HFA] 90 mcg/actuation Hfa Aerosol Inhaler 2 puff INHALATION Q4-6H PRN (Reason: shortness of breath/wheezing) Qty: 1 RF : 0 cefuroxime axetil 250 mg Tablet 250 mg PO Q12H Qty: 6 RF: 0 Discharge Instructions Patient Printed Instructions: Chest Pain (ED) Status ED Status: With Doctor
[2018-02-25 23:44] LABS: Baso # (Auto) 0.1 th/mm3 (0.0-0.2); Baso % (Auto) 0.7 % (0.0-2.0); Eos # (Auto) 0.4 th/mm3 (0.0-0.4); Eos % (Auto) 4.4 % (0.0-4.0); Hemoglobin 12.1 gm/dL (11.6-15.3); Lymph % (Auto) 30.4 % (9.0-44.0); Mean Corpuscular HGB Conc 34.7 % (32.0-36.0); Mean Corpuscular Hemoglobin 30.7 pg (27.0-34.0); Mean Corpuscular Volume 88.4 fL (80.0-100.0); Mean Platelet Volume 8.2 fL (7.0-11.0); Mono # (Auto) 0.6 th/mm3 (0.0-0.9); Mono % (Auto) 6.1 % (0.0-8.0); Neut # (Auto) 5.7 th/mm3 (1.8-7.7); Neut % (Auto) 58.4 % (16.0-70.0); Platelet Count 244 th/mm3 (150-450); Red Blood Count 3.96 mil/mm3 (4.00-5.30); White Blood Count 9.8 th/mm3 (4.0-11.0)
--- NOTE | 2018-02-26 00:13 | XR ---
EXAM DATE: 02/26/2018 12:09 AM EST AGE/SEX: 47 years / Female INDICATIONS: Chest pain. CLINICAL DATA: This is the patient's initial encounter. Patient reports that signs and symptoms have been present for 1 day and indicates a pain score of 5/10. MEDICAL/SURGICAL HISTORY: None. None. COMPARISON: [facility] – [place], CHEST 1V SINGLE AP, 12/25/2017. . FINDINGS: Cardiomegaly. There is atelectasis/scarring at the left lung base. Lungs are otherwise clear. Osseous structures are intact. CONCLUSION: Linear scarring or atelectasis at the left base. Electronically signed by: Kwasi Underwood MD 02/26/2018 12:12 AM EST
[2018-02-26 00:15] LABS: Albumin 3.6 g/dL (3.4-5.0); Anion Gap 7 meq/L (5-15); Aspartate Aminotransferase 16 U/L (15-37); Blood Urea Nitrogen 14 mg/dL (7-18); Calcium 8.7 mg/dL (8.5-10.1); Chloride 105 meq/L (98-107); Glomerular Filtration Rate 60 mL/min (>89); Glucose,Random 96 mg/dL (74-106); Potassium 3.5 meq/L (3.5-5.1); Sodium 139 meq/L (136-145)
[2018-02-26 00:16] LABS: Alanine Aminotransferase 23 U/L (10-53)
[2018-02-26 00:19] LABS: Alkaline Phosphatase 95 U/L (45-117); Total Protein 7.3 g/dL (6.4-8.2)
[2018-02-26] MEDS ORDERED: Morphine Inj 4 MG/ML Vial IV.PUSH PRN (00:46)
[2018-02-26] MEDS ORDERED: Acetaminophen 500 MG Tablet PO PRN (07:59)
--- NOTE | 2018-02-26 08:54 | P.HPCA ---
History of Present Illness Primary Care Physician: UNKNOWN Chief Complaint: Chest pain History of Present Illness: This is a 47-year-old female with history of asthma with multiple intubations, hyperlipidemia, hypothyroidism, peripheral neuropathy, GERD, and depression that presents to ED to be evaluated for chest discomfort. She describes a sharp central chest discomfort this been present intermittently for 2 weeks. States very random. Found nothing in particular to bring on. Nothing really seems to worsen or improve. She was nauseous with it. She was mildly short of breath but states is not terribly unusual with her chronic issues of her asthma and states there was any worse. The symptoms she is last 10-15 minutes when they occur. Found no radiation of her symptoms. Cannot recall of any symptoms in the past. Does not feel like her typical asthma symptoms. States her last asthma attack was a couple months ago. She is now followed by a wood window and door craftsman. Currently feeling okay. History of asthma with multiple intubations. Hyperlipidemia, hypothyroidism, peripheral neuropathy, GERD, depression he denies known CAD, diabetes, and hypertension. She states her father of a heart attack when she was 18 months of age but she does not really know how old he was. Patient quit smoking in 2011, prior to that she smoked about 1 pack of cigarettes daily for 4 years. Has occasional alcohol. Denies illicit drug use. She lives with a friend. - Diagnosis (1) Chest pain (2) Asthma (3) Hyperlipidemia Review of Systems General: Patient denies fevers, chills, and recent travel. HEENT: Patient denies headache, sore throat, difficulty swallowing. Cardiovascular: Has the chest discomfort as mentioned above. Denies sensation of heart beating rapidly or irregularly. No syncope. Denies diaphoresis Respiratory: Chronic shortness of breath, does not believe it is any worse. Denies inspirational chest discomfort. Denies coughing wheezing or hemoptysis. GI: Mildly nauseated. Patient denies vomiting, diarrhea, abdominal pain, bloody stools. Musculoskeletal: Patient denies joint pain or edema. Denies calf pain or edema. Neurovascular: Patient denies numbness, tingling, weakness in extremities. Denies headache. Endocrine: Denies polyuria and polydipsia. Hematologic: Denies easy bruising. Skin: Denies rash or itching. PMFSH - History History Provided By: Patient - Medical History Medical History: Medical History (Last Reviewed 02/25/18 @ 23:21 by Arlen Suárez) GERD (gastroesophageal reflux disease) (Acute) Depression (Chronic) Thyroid activity decreased (Acute) Asthma (Acute) Neuropathy (Chronic) - Surgical History Surgical History: Surgical History (Last Reviewed 02/25/18 @ 23:21 by Arlen Suárez) No history of previous surgery - Family History Family History: Family History (Last Updated 10/27/17 @ 23:32 by Manju Villegas MD) Other Family history normal - Tobacco History Second Hand Smoke Exposure: No Tobacco Use In Past 30 Days: No Smoking Status: Never smoker - Alcohol History How Often Do You Have a Drink Containing Alcohol: Monthly or less - Substance Use History Substance History: No History of Abuse - Travel History Recent Travel in the [place] Within the Last 8 Weeks: No Recent Travel Out of the Country Within the Last 8 Weeks: No - Immunization History Tetanus Immunization: Unsure Medications and Allergies Active Medications: Active Medications Acetaminophen (Tylenol) 500 mg PO Q6H PRN PRN Reason: pain scale 1-5 Last Admin: 02/26/18 08:25 Dose: 500 mg Albuterol (Duoneb Neb (Prn)) 1 ampul NEB Q4HR NEB PRN PRN Reason: SHORTNESS OF BREATH/WHEEZING Morphine Sulfate (Morphine Inj) 2 mg IV.PUSH Q4H PRN PRN Reason: PAIN SCALE 8 TO 10 Last Admin: 02/26/18 04:46 Dose: 2 mg Nitroglycerin (Nitro-Bid 2% Oint) 1 inch TOPICAL Q6HR BRIT Last Admin: 02/26/18 06:32 Dose: Not Given Ondansetron HCl (Zofran Inj) 4 mg IV.PUSH Q6H PRN PRN Reason: NAUSEA Last Admin: 02/26/18 04:45 Dose: 4 mg Sodium Chloride (Ns Flush) 2 ml IV.FLUSH UNSCH PRN PRN Reason: FLUSH AFTER USING IV ACCESS Last Admin: 02/26/18 05:43 Dose: 2 ml Sodium Chloride (Ns Flush) 2 ml IV.FLUSH BID BRIT Sodium Chloride (Ns Flush) 2 ml IV.FLUSH PRN PRN PRN Reason: FLUSH AFTER USING IV ACCESS Last Admin: 02/26/18 05:41 Dose: 2 ml Allergies Allergy/AdvReac Type Severity Reaction Status Date / Time morphine Allergy Abdominal Verified 02/25/18 23:20 Pain Home Medications Medication Instructions Recorded Confirmed Type gabapentin 800 mg PO TID 10/27/17 12/25/17 History levothyroxine 25 mcg PO DAILY 10/27/17 02/26/18 History sertraline [Zoloft] 25 mg PO DAILY 10/27/17 02/26/18 History alprazolam 0.5 mg PO BID 12/25/17 02/26/18 History atorvastatin 20 mg PO DAILY 12/25/17 02/26/18 History montelukast 5 mg PO QPM 12/25/17 02/26/18 History pantoprazole 40 mg PO DAILY 12/25/17 02/26/18 History trazodone 50 mg PO DAILY 12/25/17 02/26/18 History Exam Vital signs: Vital Signs 02/25/18 23:12 02/25/18 23:14 02/26/18 04:49 Temperature 98.0 F Pulse Rate 82 Respiratory Rate 16 16 Blood Pressure 114/68 118/72 Pulse Oximetry 96 98 02/26/18 05:13 02/26/18 07:06 02/26/18 07:32 Temperature 97.6 F 98.2 F Pulse Rate 68 68 Respiratory Rate 16 20 Blood Pressure 118/56 L 118/70 Pulse Oximetry 96 95 97 Intake & Output 02/25/18 02/26/18 02/26/18 18:59 06:59 18:59 Weight 88.451 kg Narrative: GENERAL: This is a well-nourished, well-developed patient, in no apparent distress. Patient speaks in clear complete sentences. Patient is pleasant. HEENT: Head is atraumatic and normocephalic. Neck is supple without lymphadenopathy and trachea is midline. No JVD or carotid bruits. CARDIOVASCULAR: Regular rate and rhythm without murmurs, gallops, or rubs. RESPIRATORY: Clear to auscultation. Breath sounds equal bilaterally. No wheezes , rales, or rhonchi. Chest wall is nontender. No use of accessory muscles. GASTROINTESTINAL: Abdomen is nontender, nondistended. Abdomen soft. No obvious pulsatile mass or bruit. No CVA tenderness. Strong femoral pulses bilaterally. Normal bowel sounds in all quadrants. MUSCULOSKELETAL: Patient is moving upper and lower extremities freely. No calf tenderness or edema, no Homans sign. Strong pulses in upper and lower extremities. NEUROLOGICAL: Patient is alert and oriented. Cranial nerves 2-12 are grossly intact. No focal deficits and speech is clear. SKIN: No rash and turgor is normal. Results 02/25/18 23:33 02/25/18 23:33 Cardiac Enzymes 02/25/18 02/26/18 02/26/18 Range/Units 23:33 04:20 05:30 AST 16 (15-37) U/L Troponin I Less than 0.02 L Less than 0.02 L Less than 0.02 L (0.02-0.05) ng/mL CBC 02/25/18 Range/Units 23:33 WBC 9.8 (4.0-11.0) th/mm3 RBC 3.96 L (4.00-5.30) mil/mm3 Hgb 12.1 (11.6-15.3) gm/dL Hct 35.0 (35.0-46.0) % Plt Count 244 (150-450) th/mm3 Neut # (Auto) 5.7 (1.8-7.7) th/mm3 Lymph # (Auto) 3.0 (1.0-4.8) th/mm3 [place] # (Auto) 0.6 (0.0-0.9) th/mm3 Eos # (Auto) 0.4 (0.0-0.4) th/mm3 Baso # (Auto) 0.1 (0.0-0.2) th/mm3 Comprehensive Metabolic Panel 02/25/18 Range/Units 23:33 Sodium 139 (136-145) meq/L Potassium 3.5 (3.5-5.1) meq/L Chloride 105 (98-107) meq/L Carbon Dioxide 27.0 (21.0-32.0) meq/L BUN 14 (7-18) mg/dL Creatinine 0.99 (0.50-1.00) mg/dL Calcium 8.7 (8.5-10.1) mg/dL AST 16 (15-37) U/L ALT 23 (10-53) U/L Alkaline Phosphatase 95 (45-117) U/L Total Protein 7.3 (6.4-8.2) g/dL Albumin 3.6 (3.4-5.0) g/dL Intake and Output 02/25/18 02/26/18 02/26/18 22:59 06:59 14:59 Other: Weight 88.451 kg - Imaging and Cardiology Imaging: Impressions Chest X-Ray 02/25/18 23:14 CONCLUSION: Linear scarring or atelectasis at the left base. EKG interpretations - EKG EKG shows: sinus rhythm (EKGs are sinus rhythm without significant ST segment depressions or elevation. PVC noted on one EKG.) Caprini VTE Risk Assessment Caprini VTE Risk Assessment: No/Low Risk (score <= 1) Caprini Risk Assessment Model: Point Value = 1 Point Value = 2 Point Value = 3 Point Value = 5 Age 41-60 Minor surgery BMI > 25 kg/m2 Swollen legs Varicose veins or History of unexplained or recurrent spontaneous Oral contraceptives or hormone replacement Sepsis (< 1 month) Serious lung disease, including pneumonia (< 1 month) Abnormal pulmonary function Acute myocardial infarction Congestive heart failure (< 1 month) History of inflammatory bowel disease Medical patient at bed rest Age 61-74 Arthroscopic surgery Major open surgery (> 45 min) Laparoscopic surgery (> 45 min) Malignancy Confined to bed (> 72 hours) Immobilizing plaster cast Central venous access Age >= 75 History of VTE Family history of VTE Factor V Leiden Prothrombin [id number] Lupus anticoagulant Anticardiolipin antibodies Elevated serum homocysteine Heparin-induced thrombocytopenia Other congenital or acquired thrombophilia Stroke (< 1 month) Elective arthroplasty Hip, pelvis, or leg fracture Acute spinal cord injury (< 1 month) Prophylaxis Regimen: Total Risk Factor Score Risk Level Prophylaxis Regimen 0-1 Low Early ambulation 2 Moderate Order ONE of the following: *Sequential Compression Device (SCD) *Heparin 5000 units SQ BID 3-4 Higher Order ONE of the following medications: *Heparin 5000 units SQ TID *Enoxaparin/Lovenox 40 mg SQ daily (WT < 150 kg, CrCl > 30 mL/min) *Enoxaparin/Lovenox 30 mg SQ daily (WT < 150 kg, CrCl > 10-29 mL/min) *Enoxaparin/Lovenox 30 mg SQ BID (WT < 150 kg, CrCl > 30 mL/min) AND/OR *Sequential Compression Device (SCD) 5 or more Highest Order ONE of the following medications: *Heparin 5000 units SQ TID (Preferred with Epidurals) *Enoxaparin/Lovenox 40 mg SQ daily (WT < 150 kg, CrCl > 30 mL/min) *Enoxaparin/Lovenox 30 mg SQ daily (WT < 150 kg, CrCl > 10-29 mL/min) *Enoxaparin/Lovenox 30 mg SQ BID (WT < 150 kg, CrCl > 30 mL/min) AND *Sequential Compression Device (SCD) Assessment and Plan - Assessment (1) Chest pain Code(s): R07.9 - Chest pain, unspecified Status: Acute (2) Asthma Code(s): J45.909 - Unspecified asthma, uncomplicated Status: Acute (3) Hyperlipidemia Code(s): E78.5 - Hyperlipidemia, unspecified Status: Acute - Plan * Chest pain: Patient had serial cardiac enzymes and EKGs for ruling out purposes. She was seen by Dr. Villalba of cardiology and the chest pain center. She will undergo a CT a of her coronary arteries and disposition will be pending the results of that study. She will need to follow-up with outpatient PCP. Return to ED for interval issues. * Asthma: Continue medications. Have as needed duo nebs. * Hyperlipidemia: Continue medication. Patient is stable at this time. She is agreeable to this plan. H&P: Quality - VTE Deep Vein Thrombosis/Pulmonary Embolism Present on Admission: No (1) Chest pain Qualifiers: Chest pain type: unspecified Qualified Code(s): R07.9 - Chest pain, unspecified
--- NOTE | 2018-02-26 09:13 | P.PNCA ---
Subjective Interval history: Patient was presented by the physician television engineering teacher and then seen and examined by me personally. Documentation is entered is appropriate. My only additional comments in regard the information that the patient's chest pain has a strong pleuritic strongly suggestive of pulmonary etiology. Further evaluation testing and possible therapeutic intervention were discussed at some length. Because of her history of severe asthma and a asthmatic attacks evaluation is somewhat problematic. The decision was made to request a CTA of the coronary artery for definitive evaluation and low risk of precipitating another pulmonary event. The patient is agreeable to this and order was placed. Medications and Allergies Active Medications: Active Medications Acetaminophen (Tylenol) 500 mg PO Q6H PRN PRN Reason: pain scale 1-5 Last Admin: 02/26/18 08:25 Dose: 500 mg Albuterol (Duoneb Neb (Prn)) 1 ampul NEB Q4HR NEB PRN PRN Reason: SHORTNESS OF BREATH/WHEEZING Morphine Sulfate (Morphine Inj) 2 mg IV.PUSH Q4H PRN PRN Reason: PAIN SCALE 8 TO 10 Last Admin: 02/26/18 04:46 Dose: 2 mg Nitroglycerin (Nitro-Bid 2% Oint) 1 inch TOPICAL Q6HR BRIT Last Admin: 02/26/18 06:32 Dose: Not Given Ondansetron HCl (Zofran Inj) 4 mg IV.PUSH Q6H PRN PRN Reason: NAUSEA Last Admin: 02/26/18 04:45 Dose: 4 mg Sodium Chloride (Ns Flush) 2 ml IV.FLUSH UNSCH PRN PRN Reason: FLUSH AFTER USING IV ACCESS Last Admin: 02/26/18 05:43 Dose: 2 ml Sodium Chloride (Ns Flush) 2 ml IV.FLUSH BID BRIT Sodium Chloride (Ns Flush) 2 ml IV.FLUSH PRN PRN PRN Reason: FLUSH AFTER USING IV ACCESS Last Admin: 02/26/18 05:41 Dose: 2 ml Allergies Allergy/AdvReac Type Severity Reaction Status Date / Time morphine Allergy Abdominal Verified 02/25/18 23:20 Pain Home Medications Medication Instructions Recorded Confirmed Type gabapentin 800 mg PO TID 10/27/17 12/25/17 History levothyroxine 25 mcg PO DAILY 10/27/17 02/26/18 History sertraline [Zoloft] 25 mg PO DAILY 10/27/17 02/26/18 History alprazolam 0.5 mg PO BID 12/25/17 02/26/18 History atorvastatin 20 mg PO DAILY 12/25/17 02/26/18 History montelukast 5 mg PO QPM 12/25/17 02/26/18 History pantoprazole 40 mg PO DAILY 12/25/17 02/26/18 History trazodone 50 mg PO DAILY 12/25/17 02/26/18 History Physical Exam Vital signs: Vital Signs 02/25/18 23:12 02/25/18 23:14 02/26/18 04:49 Temperature 98.0 F Pulse Rate 82 Respiratory Rate 16 16 Blood Pressure 114/68 118/72 Pulse Oximetry 96 98 02/26/18 05:13 02/26/18 07:06 02/26/18 07:32 Temperature 97.6 F 98.2 F Pulse Rate 68 68 Respiratory Rate 16 20 Blood Pressure 118/56 L 118/70 Pulse Oximetry 96 95 97 Intake & Output 02/25/18 02/26/18 02/26/18 18:59 06:59 18:59 Weight 88.451 kg Narrative: Well-nourished slightly heavy young woman resting comfortably in bed with no respiratory discomfort or chest pain at this time. Skin warm and dry Head normocephalic atraumatic hair normal texture and distribution Eyes PERRLA EOMI Mouth mucous membranes somewhat dry tongue well papillated no lesions Neck supple no JVD masses nodes or bruits Chest actually clear to auscultation with no rales wheezes or rhonchi Cardiovascular the rhythm is regular no gallops rubs or murmurs are noted Abdomen soft nontender no guarding or rebound Extremities no edema Results 02/25/18 23:33 02/25/18 23:33 Cardiac Enzymes 02/25/18 02/26/18 02/26/18 Range/Units 23:33 04:20 05:30 AST 16 (15-37) U/L Troponin I Less than 0.02 L Less than 0.02 L Less than 0.02 L (0.02-0.05) ng/mL CBC 02/25/18 Range/Units 23:33 WBC 9.8 (4.0-11.0) th/mm3 RBC 3.96 L (4.00-5.30) mil/mm3 Hgb 12.1 (11.6-15.3) gm/dL Hct 35.0 (35.0-46.0) % Plt Count 244 (150-450) th/mm3 Neut # (Auto) 5.7 (1.8-7.7) th/mm3 Lymph # (Auto) 3.0 (1.0-4.8) th/mm3 [place] # (Auto) 0.6 (0.0-0.9) th/mm3 Eos # (Auto) 0.4 (0.0-0.4) th/mm3 Baso # (Auto) 0.1 (0.0-0.2) th/mm3 Comprehensive Metabolic Panel 02/25/18 Range/Units 23:33 Sodium 139 (136-145) meq/L Potassium 3.5 (3.5-5.1) meq/L Chloride 105 (98-107) meq/L Carbon Dioxide 27.0 (21.0-32.0) meq/L BUN 14 (7-18) mg/dL Creatinine 0.99 (0.50-1.00) mg/dL Calcium 8.7 (8.5-10.1) mg/dL AST 16 (15-37) U/L ALT 23 (10-53) U/L Alkaline Phosphatase 95 (45-117) U/L Total Protein 7.3 (6.4-8.2) g/dL Albumin 3.6 (3.4-5.0) g/dL Intake and Output 02/25/18 02/26/18 02/26/18 22:59 06:59 14:59 Other: Weight 88.451 kg - Imaging and Cardiology Imaging: Impressions Chest X-Ray 02/25/18 23:14 CONCLUSION: Linear scarring or atelectasis at the left base. Assessment and Plan - Assessment (1) Chest pain Code(s): R07.9 - Chest pain, unspecified Status: Acute Plan: As discussed previously further evaluation of this patient was made difficult by her history of severe asthma including 4 episodes requiring intubation. As a result she will be evaluated with a CT angiogram since nuclear scanning would represent higher risk and she is unable to carry out an exercise stress test. Further planning will be entertained after results of the study are known. However, it is anticipated that this will be negative and that the patient's current issues are pleuritic in nature. If so she will be discharged for further follow-up on an outpatient basis with Dr. Reis. Is also suggested because of her history of GERD that a GI evaluation be entertained particularly in view of the possibility that reflux could trigger asthmatic episodes in the future. (2) Asthma Code(s): J45.909 - Unspecified asthma, uncomplicated Status: Acute (3) Hyperlipidemia Code(s): E78.5 - Hyperlipidemia, unspecified Status: Acute - Plan * Chest pain: Patient had serial cardiac enzymes and EKGs for ruling out purposes. She was seen by Dr. Villalba of cardiology and the chest pain center. She will undergo a CT a of her coronary arteries and disposition will be pending the results of that study. She will need to follow-up with outpatient PCP. Return to ED for interval issues. * Asthma: Continue medications. Have as needed duo nebs. * Hyperlipidemia: Continue medication. Patient is stable at this time. She is agreeable to this plan. (1) Chest pain Qualifiers: Chest pain type: unspecified Qualified Code(s): R07.9 - Chest pain, unspecified
--- NOTE | 2018-02-26 09:31 | ECG ---
Date Performed: 02/26/2018 Time Performed: 06:08:37 PTAGE: 47 years EKG: SINUS BRADYCARDIA LOW QRS VOLTAGE IN PRECORDIAL LEADS Nonspecific ST-T wave changes but no significant change since prior tracing BORDERLINE ECG PREVIOUS TRACING : 02/25/2018 23.17 DOCTOR: Job Villalba Interpretating Date/Time 02/26/2018 09:29:50
--- NOTE | 2018-02-26 09:31 | ECG ---
Date Performed: 02/26/2018 Time Performed: 04:39:38 PTAGE: 47 years EKG: Sinus rhythm LOW QRS VOLTAGE IN PRECORDIAL LEADS BORDERLINE ECG WARNING: DATA QUALITY MAY AFFECT INTERPRETATION N o significant change PREVIOUS TRACING : 02/25/2018 23.17 DOCTOR: Job Villalba Interpretating Date/Time 02/26/2018 09:30:06
--- NOTE | 2018-02-26 09:33 | ECG ---
Date Performed: 02/25/2018 Time Performed: 23:17:42 PTAGE: 47 years EKG: Sinus rhythm WITH OCCASIONAL VENTRICULAR PREMATURE COMPLEXES BORDERLINE ECG WARNING: DATA QUALITY MAY AFFECT INTE RPRETATION Rate has slowed since prior tracing and a single ventricular ectopy is noted otherwise no change PREVIOUS TRACING : 12/25/2017 18.09 DOCTOR: Job Villalba Interpretating Date/Time 02/26/2018 09:31:25
--- NOTE | 2018-02-26 10:54 | CT ---
EXAM DATE: 02/26/2018 10:43 AM EST AGE/SEX: 47 years / Female INDICATIONS: Substernal chest pain for two weeks. CLINICAL DATA: This is the patient's initial encounter. Patient reports that signs and symptoms have been present for 2 weeks and indicates a pain score of 5/10. MEDICAL/SURGICAL HISTORY: Gastroesophageal reflux disease. None. RADIATION DOSE: 12.2 CTDI (mGy) ; Patient motion COMPARISON: No prior exams available for comparison. STUDY QUALITY: TECHNIQUE: The patient was given beta-blockers prior to the procedure. Resting heart rate prior to t he procedure was approximately bpm. Multiple contiguous axial images were obtained through the heart during bolus infusion of 100 ml Omnipaque 350 (iohexol) nonionic water-soluble contrast as a single exam dose. Images were acquired during peak arterial contrast. Images were reconstructed using a ret rospective gating algorithm including single sector and multi-sector algorithms at multiple phases of the cardiac cycle. Images were interpreted using a combination of 2D and 3D visualization modes incl uding curved planar reformation and thin slab maximum intensity projection for coronary artery evalua tion. Using automated exposure control and adjustment of the mA and/or kV according to patient size, radiation dose was kept as low as reasonably achievable to obtain optimal diagnostic quality images. DICOM format image data is available electronically for review and comparison. FINDINGS: VESSEL ANALYSIS: There are three aortic valve leaflets with normal origin of the coronary ostia. DOMINANCE: The coronary system is left dominant. LEFT MAIN: Normal size vessel without calcification or stenosis. LAD: Normal size vessel without calcification or stenosis. CIRCUMFLEX: Normal size vessel without calcification or stenosis. RCA: Small nondominant vessel without evidence of calcification or stenosis. CONCLUSION: 1. No evidence of significant atherosclerotic plaque or steno-occlusive changes. 2. Small nondominant right coronary artery 3. Normal sized heart and myocardial thickness. Electronically signed by: Keanu Solorio MD 02/26/2018 10:53 AM EST
[2018-02-27] MEDS ORDERED: Sertraline 50 MG Tablet PO SCH (09:00)
[2018-02-27] MEDS ORDERED: traZODone 50 MG Tablet PO SCH (09:00)
== END 2018-02-26 12:39 | disposition home or self-care (01) ==
LOC: NEPE 23:07 → NEDA 23:07 → NEPFCDU 02-26 05:08
PROVIDERS: ADMIT Internal Medicine Cardiovascular Disease; ATTEND Internal Medicine Cardiovascular Disease